=== PATIENT | female | born 1990 | race African-American/Black ===

== ENCOUNTER 2018-04-23 12:23 | Emergency (ER) | payer OTHER ==
[2018-04-23] MEDS ORDERED: ALBUTEROL 2.5 MG/3 ML NEB SOL ONE (13:29)
[2018-04-23] MEDS ORDERED: IPRATROPIUM BROM 0.5MG/2.5ML ONE (13:29)
--- NOTE | 2018-04-23 14:11 | RAD REPORT ---
EXAM DESCRIPTION: RAD - Chest Pa And Lat (2 Views) - 04/23/2018 1:53 pm CLINICAL HISTORY: Chest pain COMPARISON: October 2017 TECHNIQUE: PA and lateral views of the chest were obtained. FINDINGS: The lungs are clear. Heart size is normal and central vasculature is within normal limit s. No pleural effusion or pneumothorax seen. No acute bony finding noted. No aortic abnormality. IMPRESSION: No acute cardiopulmonary process. No significant change from comparison.
[2018-04-23 14:47] LABS: Urine Blood NEGATIVE (NEG); Urine Glucose NEGATIVE (NEG); Urine Protein NEGATIVE (NEG); Urine Specific Gravity 1.025 (1.005-1.030); Urine pH 5.5 (5.0-7.0)
--- NOTE | 2018-04-23 15:00 | EKG ---
Test Date: 2018-04-23 Test Time: 12:44:31 Industrial Engineering Director: REINALDO MEASUREMENT RESULTS: Intervals: Rate: 61 FL: 188 QRSD: 84 QT: 384 QTc: 386 [place]: P: 53 FL: 188 QRS: 49 T: 32 INTERPRETIVE STATEMENTS: Normal sinus rhythm Normal ECG Compared to ECG 11/14/2017 12:31:24 No significant changes Electronically Signed On 04-23-18 14:58:55 CDT by Aquilino De Anda
[2018-04-23] MEDS ORDERED: KETOROLAC 30 MG/ML INJ ONE (15:37)
--- NOTE | 2018-04-23 16:22 | ER ---
Nurse's Notes [facility] Name: Dede Mcgee Age: 27 yrs Sex: Female : 1990 Arrival Date: 04/23/2018 Time: 12:30 Bed 19 Private MD: Out, [facility] Diagnosis: Dyspnea;Acute bronchitis Presentation: 04/23 12:31 Presenting complaint: Patient states: midsternal chest pain x 1 day since working in heat. Transition of care: patient was not received from another setting of care. Onset of symptoms was April 22, 2018. Care prior to arrival: None. 12:31 Method Of Arrival: Ambulatory 12:31 Acuity: JOSLYN 3 hb 12:32 Risk Assessment: Do you want to hurt yourself or someone else? Patient reports no desire to harm self or others. Initial Sepsis Screen: Does the patient meet any 2 criteria? No. Patient's initial sepsis screen is negative. Does the patient have a suspected source of infection? No. Patient's initial sepsis screen is negative. 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 - Social history:: Smoking status: Patient/guardian denies using tobacco. - Ebola Screening: : No symptoms or risks identified at this time. Screenin:47 Abuse screen: Denies threats or abuse. Denies injuries from another. Nutritional ch screening: No deficits noted. Tuberculosis screening: No symptoms or risk factors identified. Fall Risk None identified. Assessment: 12:47 Reassessment: Patient appears in no apparent distress at this time. General: Appears in no apparent distress. comfortable, Behavior is calm, cooperative, appropriate for age. Pain: Complains of pain in chest Pain does not radiate. Pain began suddenly. Cardiovascular: Reports chest pain, shortness of breath, Heart tones S1 S2 present Capillary refill < 3 seconds in bilateral fingers toes Clubbing of nail beds is absent Patient's skin is warm and dry. Pulses are all present. Edema is absent. Rhythm is regular. 13:24 Reassessment: Patient appears in no apparent distress at this time. Patient and/or ch family updated on plan of care and expected duration. Pain level reassessed. Patient is alert, oriented x 3, equal unlabored respirations, skin warm/dry/pink. 13:32 Reassessment: Patient appears in no apparent distress at this time. Patient and/or ch family updated on plan of care and expected duration. Pain level reassessed. Patient is alert, oriented x 3, equal unlabored respirations, skin warm/dry/pink. 14:29 Reassessment: Patient appears in no apparent distress at this time. Patient and/or ch family updated on plan of care and expected duration. Pain level reassessed. Patient is alert, oriented x 3, equal unlabored respirations, skin warm/dry/pink. pt talking in room, no s/s of SOB. denies pain Patient states feeling better. Patient states symptoms have improved. 14:36 Reassessment: Patient appears in no apparent distress at this time. Patient and/or ch family updated on plan of care and expected duration. Pain level reassessed. Patient is alert, oriented x 3, equal unlabored respirations, skin warm/dry/pink. pt states she has pain all the time, states it gets worse with deep breathing, feels like a stabbing pain in her lungs. 16:09 Reassessment: Patient appears in no apparent distress at this time. Patient and/or ch family updated on plan of care and expected duration. Pain level reassessed. Patient is alert, oriented x 3, equal unlabored respirations, skin warm/dry/pink. Patient denies pain at this time. Patient states feeling better. Patient states symptoms have improved. 16:44 Reassessment: Patient appears in no apparent distress at this time. Patient and/or ch family updated on plan of care and expected duration. Pain level reassessed. Patient is alert, oriented x 3, equal unlabored respirations, skin warm/dry/pink. Patient denies pain at this time. Patient states feeling better. Patient states symptoms have improved. Vital Signs: 12:32 BP 137 / 102; Pulse 64; Resp 16; Temp 98.4; Pulse Ox 100% ; Weight 72.57 kg; Height 5 hb ft. 10 in. (177.80 cm); Pain 7/10; 13:32 BP 124 / 84; Pulse 65; Resp 14; Temp 97.9; Pulse Ox 99% on R/A; Pain 6/10; ch 14:36 BP 111 / 58; Pulse 72; Resp 18; Temp 98.3; Pulse Ox 99% on R/A; Pain 4/10; ch 16:44 BP 129 / 88; Pulse 70; Resp 15; Temp 98.2; Pulse Ox 99% on R/A; Pain 0/10; ch 12:32 Body Mass Index 22.96 (72.57 kg, 177.80 cm) hb ED Course: 12:30 Patient arrived in ED. sb2 12:30 Out, of Town is Private Physician. sb2 12:32 Triage completed. hb 12:33 Arm band placed on left wrist. hb 12:45 Jewell Park, RN is Primary Nurse. ch 12:46 Reza Méndez MD is Attending Physician. gs 12:47 No apparent distress. Resting quietly. ch 12:47 Patient has correct armband on for positive identification. Placed in gown. Bed in low ch position. Call light in reach. Side rails up X 1. monitoring specialist on. Pulse ox on. NIBP on. 12:47 No provider procedures requiring assistance completed. Patient maintains SpO2 ch saturation greater than 95% on room air. 12:53 EKG done, by auto technician mechanic. reviewed by Reza Méndez MD. sm3 13:36 Patient moved to radiology via wheelchair. 13:53 X-ray completed. Patient tolerated procedure well. Patient moved back from radiology. mh1 13:54 XRAY Chest Pa And Lat (2 Views) In Process Unspecified. EDMS 15:09 Initial lab(s) drawn, by id, sent to lab. Inserted saline lock: 22 gauge in left dh3 antecubital area, using aseptic technique. Blood collected. 16:44 IV discontinued, intact, bleeding controlled, No redness/swelling at site. Pressure ch dressing applied. Administered Medications: 13:24 Drug: Albuterol 2.5 mg Route: Inhalation; ch 13:24 Drug: AtroVENT Aerosol 0.5 mg Route: Inhalation; ch 15:30 Drug: TORadol 30 mg Route: IM; Site: left gluteus; ch 16:45 Follow up: Response: No adverse reaction; Marked relief of symptoms ch Outcome: 16:21 Discharge ordered by . 16:44 Discharged to home ambulatory, with family. 16:44 Condition: improved 16:44 Discharge instructions given to patient, family, Instructed on discharge instructions, follow up and referral plans. medication usage, Demonstrated understanding of instructions, follow-up care, medications, Prescriptions given X 3. 16:46 Patient left the ED. Signatures: Dispatcher [employer] EDMS Jewell Park RN RN Jackie Jaffe [facility] Tatianna Hubbard Heather, RN RN Sriram, Larissa 3 Reza Méndez MD MD Lamar Rizo 2 Germania Bravo 3
--- NOTE | 2018-04-23 16:22 | EDPHYS ---
Physician Documentation [facility] Name: Dede Mcgee Age: 27 yrs Sex: Female : 1990 Arrival Date: 04/23/2018 Time: 12:30 Bed 19 Private MD: Out, [facility] ED Physician Reza Méndez HPI: 04/23 16:07 This 27 yrs old Black Female presents to ER via Ambulatory with complaints of Chest gs Pain, Shortness Of Breath. 16:07 The patient or guardian reports chest pain that is located primarily in the anterior gs chest wall, right. The pain does not radiate. Associated signs and symptoms: Pertinent positives: shortness of breath. The chest pain is described as sharp. Duration: The patient or guardian reports multiple episodes, that are intermittent, that wax and wane, with no pattern. Modifying factors: the symptoms are aggravated by cough, deep breath. Severity of pain: At its worst the pain was moderate in the emergency department the pain is unchanged. The patient has experienced similar episodes in the past, a few times. 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 - Social history:: Smoking status: Patient/guardian denies using tobacco. - Ebola Screening: : No symptoms or risks identified at this time. ROS: 16:07 All other systems are negative. gs Exam: 16:07 Head/Face: Normocephalic, atraumatic. Eyes: Pupils equal round and reactive to light, gs extra-ocular motions intact. Lids and lashes normal. Conjunctiva and sclera are non-icteric and not injected. Cornea within normal limits. Periorbital areas with no swelling, redness, or edema. ENT: Nares patent. No nasal discharge, no septal abnormalities noted. Tympanic membranes are normal and external auditory canals are clear. Oropharynx with no redness, swelling, or masses, exudates, or evidence of obstruction, uvula midline. Mucous membranes moist. Neck: Trachea midline, no thyromegaly or masses palpated, and no cervical lymphadenopathy. Supple, full range of motion without nuchal rigidity, or vertebral point tenderness. No Meningismus. Chest/axilla: Normal chest wall appearance and motion. Nontender with no deformity. No lesions are appreciated. Cardiovascular: Regular rate and rhythm with a normal S1 and S2. No gallops, murmurs, or rubs. Normal PMI, no JVD. No pulse deficits. Respiratory: Lungs have equal breath sounds bilaterally, clear to auscultation and percussion. No rales, rhonchi or wheezes noted. No increased work of breathing, no retractions or nasal flaring. Abdomen/GI: Soft, non-tender, with normal bowel sounds. No distension or tympany. No guarding or rebound. No evidence of tenderness throughout. Back: No spinal tenderness. No costovertebral tenderness. Full range of motion. Skin: Warm, dry with normal turgor. Normal color with no rashes, no lesions, and no evidence of cellulitis. MS/ Extremity: Pulses equal, no cyanosis. Neurovascular intact. Full, normal range of motion. Neuro: Awake and alert, GCS 15, oriented to person, place, time, and situation. Cranial nerves II-XII grossly intact. Motor strength 5/5 in all extremities. Sensory grossly intact. Cerebellar exam normal. Normal gait. 16:07 Constitutional: The patient appears alert, awake. 16:07 ECG was reviewed by the Attending Physician. Vital Signs: 12:32 BP 137 / 102; Pulse 64; Resp 16; Temp 98.4; Pulse Ox 100% ; Weight 72.57 kg; Height 5 hb ft. 10 in. (177.80 cm); Pain 7/10; 13:32 BP 124 / 84; Pulse 65; Resp 14; Temp 97.9; Pulse Ox 99% on R/A; Pain 6/10; ch 14:36 BP 111 / 58; Pulse 72; Resp 18; Temp 98.3; Pulse Ox 99% on R/A; Pain 4/10; ch 16:44 BP 129 / 88; Pulse 70; Resp 15; Temp 98.2; Pulse Ox 99% on R/A; Pain 0/10; ch 12:32 Body Mass Index 22.96 (72.57 kg, 177.80 cm) hb MDM: 13:02 Patient medically screened. 16:07 Differential diagnosis: pleurisy, pneumonia, pulmonary embolus, asthma. Data reviewed: vital signs, nurses notes. 04/23 13:34 Order name: Urine Dipstick--Ancillary (enter results); Complete Time: 16:05 5 04/23 13:34 Order name: Urine --Ancillary (enter results); Complete Time: 16:05 [facility] 04/23 13:19 Order name: XRAY Chest Pa And Lat (2 Views); Complete Time: 14:15 04/23 14:36 Order name: D-Dimer; Complete Time: 16:05 04/23 13:19 Order name: EKG; Complete Time: 13:19 04/23 13:19 Order name: EKG - Nurse/Tech; Complete Time: 13:32 EC:07 Rate is 61 beats/min. Rhythm is regular. T waves are Normal. Clinical impression: Normal ECG. Interpreted by me. Administered Medications: 13:24 Drug: Albuterol 2.5 mg Route: Inhalation; 13:24 Drug: AtroVENT Aerosol 0.5 mg Route: Inhalation; 15:30 Drug: TORadol 30 mg Route: IM; Site: left gluteus; 16:45 Follow up: Response: No adverse reaction; Marked relief of symptoms Disposition: 04/23/18 16:21 Discharged to Home. Impression: Dyspnea, Acute bronchitis. - Condition is Stable. - Prescriptions for Prednisone 20 mg Oral Tablet - take 1 tablet by ORAL route once daily for 5 days; 5 tablet. Albuterol Sulfate 2.5 mg /3 mL (0.083 %) Inhalation Solution for Nebulization - inhale 1 unit by NEBULIZATION route every 8 hours As needed; 1 box. Naprosyn 500 mg Oral Tablet - take 1 tablet by ORAL route 2 times per day take with food; 20 tablet. - Work release form, Medication Reconciliation Form, Thank You Letter, Antibiotic Education, Prescription Opioid Use form. - Follow up: Private Physician; When: 2 - 3 days; Reason: Re-evaluation by your physician. Signatures: Dispatcher [employer] Jewell Jewell RN RN Janelle Roberts RN RN hb Starr, Gregory, MD MD Corrections: (The following items were deleted from the chart) 16:46 16:21 04/23/2018 16:21 Discharged to Home. Impression: Dyspnea; Acute bronchitis. ch Condition is Stable. Forms are Medication Reconciliation Form, Thank You Letter, Antibiotic Education, Prescription Opioid Use. Follow up: Private Physician; When: 2 - 3 days; Reason: Re-evaluation by your physician. gs
[2018-04-23 16:52] VITALS: O2SAT 99
[2018-04-23 16:55] VITALS: BP 129/88; TEMP 98.2
== END 2018-04-23 16:46 | disposition home or self-care (01) ==
LOC: ER 12:23
DX: J20.9 Acute bronchitis, unspecified (principal); I10 Essential (primary) hypertension; Z88.8 Allergy status to other drugs, medicaments and biological substances; Z91.013 Allergy to seafood
CPT/HCPCS: 36415; 71046; 81003; 81025; 85379; 93005; 96372; 99285

== ENCOUNTER 2018-09-09 12:35 | Emergency (ER) | payer SELFPAY ==
--- NOTE | 2018-09-09 14:20 | RAD REPORT ---
EXAM DESCRIPTION: RAD - Chest Pa And Lat (2 Views) - 09/09/2018 2:09 pm CLINICAL HISTORY: SOB Chest pain. COMPARISON: Chest Pa And Lat (2 Views) dated 04/23/2018; Chest Pa And Lat (2 Views) dated 11/14/2017; Chest Single View dated 09/09/2017; CHEST PA AND LAT 2 VIEW dated 04/02/2014 FINDINGS: The lungs are clear. The heart is normal in size. No displaced fractures. IMPRESSION: No acute or concerning finding suspected.
[2018-09-09] MEDS ORDERED: ONDANSETRON 4 MG/2 ML VIAL ONE (15:01)
[2018-09-09] MEDS ORDERED: FENTANYL CITR 100 MCG/2 ML ONE (15:01)
[2018-09-09] MEDS ORDERED: NA CHLORIDE 0.9% 1,000 ML ONE (15:01)
[2018-09-09 15:11] LABS: Absolute Lymphocytes (CBC) 2.4 K/uL (0.7-4.9); Absolute Monocytes 0.5 K/uL (0.1-1.3); Absolute Neutrophil 3.8 K/uL (1.8-8.0); Basophils % 1.1 % (0-1.3); Eosinophils % 3.1 % (0-4.4); Hematocrit 40.1 % (36.0-45.0); MCH 31.6 pg (27.0-35.0); MCV 93.7 fL (80-100); MPV 8.9 fL (7.6-11.3); Monocytes % 7.4 % (3.3-12.3); RBC Red Blood Cell Count 4.28 M/uL (3.86-4.86)
[2018-09-09 15:16] LABS: Protime INR 1.16
[2018-09-09 15:18] LABS: Urine Blood NEGATIVE (NEG); Urine Glucose NEGATIVE (NEG); Urine Protein NEGATIVE (NEG); Urine Specific Gravity 1.025 (1.005-1.030)
--- NOTE | 2018-09-09 15:29 | RAD REPORT ---
EXAM DESCRIPTION: US - Abdomen Exam Limited - 09/09/2018 3:22 pm CLINICAL HISTORY: ABD PAIN COMPARISON: No comparisons FINDINGS: The gallbladder demonstrates no gallstones. No pericholecystic fluid or gallbladder wall t hickening. The common bile duct is normal measuring 4 mm. The liver demonstrates no findings of intrahepatic biliary dilatation. IMPRESSION: Unremarkable examination.
[2018-09-09] MEDS ORDERED: METHYLPREDNISOLONE 125 MG INJ ONE (15:30)
[2018-09-09] MEDS ORDERED: FAMOTIDINE 20 MG/2 ML VIAL IV ONE (15:30)
[2018-09-09 15:55] LABS: ALT/SGPT 20 U/L (12-78); AST/SGOT 11 U/L (15-37); Albumin 3.5 g/dL (3.4-5.0); Alkaline Phosphatase 44 U/L (45-117); BUN Blood Urea Nitrogen 13 mg/dL (7-18); Bicarbonate 27 mmol/L (21-32); Bilirubin Direct < 0.1 mg/dL (0-0.2); Bilirubin Total 0.3 mg/dL (0.2-1.0); Glucose Level 79 mg/dL (74-106); Lipase 266 U/L (73-393); Magnesium 2.3 mg/dL (1.8-2.4); NT PRO-BNP 80 pg/mL (<125); Sodium Level 138 mmol/L (136-145); Troponin (Emerg Dept Use Only) < 0.02 ng/mL (0.0-0.045)
[2018-09-09] MEDS ORDERED: DIPHENHYDRAMINE 25 MG TAB/CAP ONE (16:08)
--- NOTE | 2018-09-09 16:31 | RAD REPORT ---
EXAM DESCRIPTION: CT - Chest For Pe Angio - 09/09/2018 4:09 pm CLINICAL HISTORY: Right-sided chest pain, shortness of breath with deep inspiration COMPARISON: Chest films same date TECHNIQUE: Dynamically enhanced 3 mm thick images of the chest were obtained during administration o f approximately 150mL Isovue 370 IV contrast. Coronal and oblique MIP reconstruction images were gene rated and reviewed. Exam utilizes a protocol to evaluate the pulmonary arterial tree. All CT scans are performed using dose optimization technique as appropriate and may include automated exposure control or mA/KV adjustment according to patient size. FINDINGS: No pulmonary emboli are identified. The aorta as imaged shows no acute or suspicious finding. No pericardial thickening or effusion. No infiltrate or mass in the lung parenchyma. No pleural effusion or pleural thickening. No mediastinal or hilar suspicious masses. No chest wall masses or abnormal axillary lymphadenopathy. IMPRESSION: No pulmonary emboli identified. No other significant or suspicious findings.
[2018-09-09] MEDS ORDERED: CEFTRIAXONE/SWI 1gm 1 GM/10 ML SYR ONE (16:55)
--- NOTE | 2018-09-09 16:55 | EDPHYS ---
Physician Documentation [facility] Name: Dede Mcgee Age: 28 yrs Sex: Female : 1990 Arrival Date: 09/09/2018 Time: 12:38 Bed 30 Private MD: Nina Terrell ED Physician Balta Hummel HPI: 09/09 14:53 This 28 yrs old Black Female presents to ER via Ambulatory with complaints of Shortness shelby Of Breath, LUNG PAIN. 14:53 The patient has shortness of breath at rest, with light activity. Onset: The shelby symptoms/episode began/occurred 3 day(s) ago. Duration: The symptoms are intermittent, with episodes lasting seconds at a time. The patient's shortness of breath is aggravated by coughing, walking. Associated signs and symptoms: The patient has no apparent associated signs or symptoms. Severity of symptoms: At their worst the symptoms were mild in the emergency department the symptoms are unchanged. The patient has not experienced similar symptoms in the past. Historical: - Allergies: 12:41 montelukast; sv 12:41 SHELLFISH; sv - PMHx: 12:41 Asthma; Hypertension; Ovarian cyst; sv - PSHx: 12:41 ovarian cyst removal; sv - Immunization history:: Flu vaccine is not up to date. - Social history:: Smoking status: Patient/guardian denies using tobacco. - Ebola Screening: : No symptoms or risks identified at this time. ROS: 14:55 Constitutional: Negative for fever, chills, and weight loss, Eyes: Negative for injury, shelby pain, redness, and discharge, ENT: Negative for injury, pain, and discharge, Neck: Negative for injury, pain, and swelling, Cardiovascular: Negative for chest pain, palpitations, and edema, Respiratory: Negative for shortness of breath, cough, wheezing, and pleuritic chest pain, Back: Negative for injury and pain, : Negative for injury, bleeding, discharge, and swelling, MS/Extremity: Negative for injury and deformity, Skin: Negative for injury, rash, and discoloration, Neuro: Negative for headache, weakness, numbness, tingling, and seizure, Psych: Negative for depression, anxiety, suicide ideation, homicidal ideation, and hallucinations, Allergy/Immunology: Negative for hives, rash, and allergies, Endocrine: Negative for neck swelling, polydipsia, polyuria, polyphagia, and marked weight changes, Hematologic/Lymphatic: Negative for swollen nodes, abnormal bleeding, and unusual bruising. 14:55 Abdomen/GI: Positive for abdominal pain, of the epigastric area and right upper quadrant. Exam: 14:55 Constitutional: This is a well developed, well nourished patient who is awake, alert, shelby and in no acute distress. Head/Face: Normocephalic, atraumatic. Eyes: Pupils equal round and reactive to light, extra-ocular motions intact. Lids and lashes normal. Conjunctiva and sclera are non-icteric and not injected. Cornea within normal limits. Periorbital areas with no swelling, redness, or edema. ENT: Nares patent. No nasal discharge, no septal abnormalities noted. Tympanic membranes are normal and external auditory canals are clear. Oropharynx with no redness, swelling, or masses, exudates, or evidence of obstruction, uvula midline. Mucous membranes moist. Neck: Trachea midline, no thyromegaly or masses palpated, and no cervical lymphadenopathy. Supple, full range of motion without nuchal rigidity, or vertebral point tenderness. No Meningismus. Chest/axilla: Normal chest wall appearance and motion. Nontender with no deformity. No lesions are appreciated. Cardiovascular: Regular rate and rhythm with a normal S1 and S2. No gallops, murmurs, or rubs. Normal PMI, no JVD. No pulse deficits. Respiratory: Lungs have equal breath sounds bilaterally, clear to auscultation and percussion. No rales, rhonchi or wheezes noted. No increased work of breathing, no retractions or nasal flaring. Back: No spinal tenderness. No costovertebral tenderness. Full range of motion. Skin: Warm, dry with normal turgor. Normal color with no rashes, no lesions, and no evidence of cellulitis. MS/ Extremity: Pulses equal, no cyanosis. Neurovascular intact. Full, normal range of motion. Neuro: Awake and alert, GCS 15, oriented to person, place, time, and situation. Cranial nerves II-XII grossly intact. Motor strength 5/5 in all extremities. Sensory grossly intact. Cerebellar exam normal. Normal gait. Psych: Awake, alert, with orientation to person, place and time. Behavior, mood, and affect are within normal limits. 14:55 Abdomen/GI: Inspection: abdomen appears normal, Bowel sounds: normal, Palpation: mild abdominal tenderness, in the right upper quadrant, Liver: no appreciated palpable abnormalities, Hernia: not appreciated. Vital Signs: 12:42 BP 135 / 92; Pulse 64; Resp 18; Temp 98.3; Pulse Ox 100% ; Weight 73.48 kg; Height 5 sv ft. 10 in. (177.80 cm); Pain 7/10; 13:04 BP 127 / 94; Pulse 62; Resp 18; Pulse Ox 99% ; kr2 14:08 BP 129 / 99; Pulse 58; Resp 19; Pulse Ox 100% ; kr2 15:46 BP 130 / 99 RA (auto/reg); Pulse 69; Resp 19; Pulse Ox 100% on R/A; jp3 16:30 BP 132 / 88; Pulse 64; Resp 16; Pulse Ox 99% on R/A; kr2 17:22 BP 128 / 90; Pulse 60; Resp 17; Pulse Ox 100% ; kr2 12:42 Body Mass Index 23.24 (73.48 kg, 177.80 cm) sv MDM: 12:43 Patient medically screened. [facility] 14:57 Data reviewed: vital signs, nurses notes, lab test result(s), EKG, radiologic studies, [facility] CT scan, plain films, ultrasound. 09/09 13:35 Order name: Flu; Complete Time: 14:30 kr2 09/09 14:03 Order name: Urine Dipstick--Ancillary (enter results); Complete Time: 15:32 hb 09/09 14:03 Order name: Urine --Ancillary (enter results); Complete Time: 15:32 hb 09/09 14:03 Order name: Urine Culture 09/09 14:52 Order name: Basic Metabolic Panel; Complete Time: 16:15 [facility] 09/09 14:52 Order name: CBC with Diff; Complete Time: 15:32 [facility] 09/09 13:35 Order name: Chest Pa And Lat (2 Views) XRAY; Complete Time: 14:30 kr2 09/09 14:52 Order name: LFT's; Complete Time: 16:15 [facility] 09/09 14:52 Order name: Magnesium; Complete Time: 16:15 [facility] 09/09 14:52 Order name: NT PRO-BNP; Complete Time: 16:15 [facility] 09/09 14:52 Order name: PT-INR; Complete Time: 15:32 [facility] 09/09 14:52 Order name: Troponin (emerg Dept Use Only); Complete Time: 16:15 [facility] 09/09 14:52 Order name: Lipase; Complete Time: 16:15 [facility] 09/09 14:52 Order name: US Abdomen Limited; Complete Time: 15:32 [facility] 09/09 14:52 Order name: EKG; Complete Time: 14:53 [facility] 09/09 14:52 Order name: Cardiac monitoring; Complete Time: 15:02 [facility] 09/09 14:52 Order name: EKG - Nurse/Tech; Complete Time: 15:02 [facility] 09/09 14:52 Order name: IV Saline Lock; Complete Time: 15:02 [facility] 09/09 14:52 Order name: Labs collected and sent; Complete Time: 15:02 [facility] 09/09 14:52 Order name: O2 Per Protocol; Complete Time: 15:02 [facility] 09/09 14:52 Order name: CT Chest For PE Angio; Complete Time: 16:50 [facility] 09/09 14:52 Order name: O2 Sat Monitoring; Complete Time: 15:03 [facility] Administered Medications: 15:03 Drug: fentaNYL (PF) 25 mcg Route: IVP; Site: left antecubital; kr2 15:32 Follow up: Response: No adverse reaction; Pain is decreased kr2 15:03 Drug: Zofran 4 mg Route: IVP; Site: left antecubital; kr2 15:32 Follow up: Response: No adverse reaction kr2 15:31 Drug: NS 0.9% 1000 ml Route: IV; Rate: 1 bolus; Site: left antecubital; kr2 17:23 Follow up: Response: No adverse reaction; IV Status: Completed infusion kr2 15:31 Drug: SOLU-Medrol 125 mg Route: IVP; Site: left antecubital; kr2 16:44 Follow up: Response: No adverse reaction kr2 15:32 Drug: Pepcid 20 mg Route: IVP; Site: left antecubital; kr2 16:44 Follow up: Response: No adverse reaction kr2 15:58 Not Given (medication unavailable): Benadryl 50 mg IM once kr2 15:59 CANCELLED (Duplicate Order): Benadryl 25 mg IVP once kr2 16:07 Drug: Benadryl 25 mg Route: PO; kr2 16:44 Follow up: Response: No adverse reaction kr2 17:08 Drug: Rocephin - (cefTRIAXone) 1 grams Route: IVPB; Infused Over: 30 mins; Site: left kr2 antecubital; 17:23 Follow up: Response: No adverse reaction; IV Status: Completed infusion kr2 Disposition: 09/09/18 16:55 Discharged to Home. Impression: Pleurisy, Urinary tract infection, site not specified, Abdominal tenderness. - Condition is Stable. - Discharge Instructions: Abdominal Pain, Adult, Chest Wall Pain, Pleurisy, Urinary Tract Infection, Adult, Urinary Tract Infection, Adult, [id number], Abdominal Pain, Adult, [id number]. - Prescriptions for Levaquin 500 mg Oral Tablet - take 1 tablet by ORAL route once daily for 7 days; 7 tablet. Pepcid 20 mg Oral Tablet - take 1 tablet by ORAL route every 12 hours for 10 days; 20 tablet. Motrin IB 200 mg Oral Tablet - take 2 tablet by ORAL route every 6 hours As needed as needed with food; 30 tablet. - Medication Reconciliation Form, Thank You Letter, Antibiotic Education, Prescription Opioid Use, Family Work Release form. - Follow up: Nina Terrell; When: 2 - 3 days; Reason: Recheck today's complaints, Continuance of care, Re-evaluation by your physician. - Problem is new. - Symptoms have improved. Signatures: Dispatcher [employer] Catia Wolf RN RN sv Anderson, Corey, MD MD cha Reaves, Karey, RN RN kr2 Corrections: (The following items were deleted from the chart) 15:59 15:58 Benadryl 25 mg IVP once ordered. kr2 kr2 17:24 16:55 09/09/2018 16:55 Discharged to Home. Impression: Pleurisy; Urinary tract kr2 infection, site not specified; Abdominal tenderness. Condition is Stable. Discharge Instructions: Abdominal Pain, Adult, Chest Wall Pain, Pleurisy, Urinary Tract Infection, Adult, Urinary Tract Infection, Adult, [id number], Abdominal Pain, Adult, [id number]. Prescriptions for Levaquin 500 mg Oral Tablet - take 1 tablet by ORAL route once daily for 7 days; 7 tablet, Pepcid 20 mg Oral Tablet - take 1 tablet by ORAL route every 12 hours for 10 days; 20 tablet, Motrin IB 200 mg Oral Tablet - take 2 tablet by ORAL route every 6 hours As needed as needed with food; 30 tablet. and Forms are Medication Reconciliation Form, Thank You Letter, Antibiotic Education, Prescription Opioid Use. Follow up: Nina Terrell; When: 2 - 3 days; Reason: Recheck today's complaints, Continuance of care, Re-evaluation by your physician. Problem is new. Symptoms have improved. shelby
--- NOTE | 2018-09-09 16:55 | ER ---
Nurse's Notes [facility] Name: Dede Mcgee Age: 28 yrs Sex: Female : 1990 Arrival Date: 09/09/2018 Time: 12:38 Bed 30 Private MD: Nina Terrell Diagnosis: Pleurisy;Urinary tract infection, site not specified;Abdominal tenderness Presentation: 09/09 12:41 Presenting complaint: Patient states: "right lung pain" c/o SOB with deep breathing, sv cough, generalized weakness. Transition of care: patient was not received from another setting of care. Onset of symptoms was September 07, 2018. Care prior to arrival: None. 12:41 Method Of Arrival: Ambulatory sv 12:41 Acuity: JOSLYN 3 sv 12:56 Risk Assessment: Do you want to hurt yourself or someone else? Patient reports no kr2 desire to harm self or others. Initial Sepsis Screen: Does the patient meet any 2 criteria? No. Patient's initial sepsis screen is negative. Does the patient have a suspected source of infection? No. Patient's initial sepsis screen is negative. Triage Assessment: 12:56 General: Appears in no apparent distress. comfortable. Respiratory: Onset: The kr2 symptoms/episode began/occurred 3 days ago, the patient has mild shortness of breath. Respiratory: Airway is patent Respiratory effort is even, unlabored, Respiratory pattern is regular, symmetrical. Historical: - Allergies: 12:41 montelukast; sv 12:41 SHELLFISH; sv - PMHx: 12:41 Asthma; Hypertension; Ovarian cyst; sv - PSHx: 12:41 ovarian cyst removal; sv - Immunization history:: Flu vaccine is not up to date. - Social history:: Smoking status: Patient/guardian denies using tobacco. - Ebola Screening: : No symptoms or risks identified at this time. Screenin:56 Abuse screen: Denies threats or abuse. Denies injuries from another. Nutritional kr2 screening: No deficits noted. Tuberculosis screening: No symptoms or risk factors identified. Fall Risk None identified. Assessment: 12:53 General: Appears in no apparent distress. comfortable, well groomed, well developed, kr2 well nourished, Behavior is calm, cooperative, appropriate for age. Pain: Complains of pain in Lungs Pain does not radiate. Pain currently is 7 out of 10 on a pain scale. Quality of pain is described as sharp, Is intermittent, Alleviated by rest, Aggravated by deep breathing, coughing. Neuro: Level of Consciousness is awake, alert, obeys commands, Oriented to person, place, time, situation, Appropriate for age. Cardiovascular: Rhythm is regular. Respiratory: Airway is patent Respiratory effort is even, unlabored, Respiratory pattern is regular, symmetrical. Respiratory: Reports cough that is non-productive. GI: Abdomen is flat, non-distended. EENT: Reports nasal congestion. Derm: Skin is intact, is healthy with good turgor, Skin is pink, warm \\T\\ dry. Musculoskeletal: Circulation, motion, and sensation intact. 12:53 Respiratory: Breath sounds are clear bilaterally. kr2 14:06 Reassessment: Patient appears in no apparent distress at this time. Patient and/or kr2 family updated on plan of care and expected duration. Pain level reassessed. Patient is alert, oriented x 3, equal unlabored respirations, skin warm/dry/pink. 15:00 Reassessment: Patient appears in no apparent distress at this time. Patient and/or kr2 family updated on plan of care and expected duration. Pain level reassessed. Patient is alert, oriented x 3, equal unlabored respirations, skin warm/dry/pink. Patient states feeling better. 16:00 Reassessment: Patient appears in no apparent distress at this time. Patient and/or kr2 family updated on plan of care and expected duration. Pain level reassessed. Patient is alert, oriented x 3, equal unlabored respirations, skin warm/dry/pink. Patient denies pain at this time. Patient states symptoms have improved. 17:21 Reassessment: Patient appears in no apparent distress at this time. Patient and/or kr2 family updated on plan of care and expected duration. Pain level reassessed. Patient is alert, oriented x 3, equal unlabored respirations, skin warm/dry/pink. Patient denies pain at this time. Patient states feeling better. Vital Signs: 12:42 BP 135 / 92; Pulse 64; Resp 18; Temp 98.3; Pulse Ox 100% ; Weight 73.48 kg; Height 5 sv ft. 10 in. (177.80 cm); Pain 7/10; 13:04 BP 127 / 94; Pulse 62; Resp 18; Pulse Ox 99% ; kr2 14:08 BP 129 / 99; Pulse 58; Resp 19; Pulse Ox 100% ; kr2 15:46 BP 130 / 99 RA (auto/reg); Pulse 69; Resp 19; Pulse Ox 100% on R/A; jp3 16:30 BP 132 / 88; Pulse 64; Resp 16; Pulse Ox 99% on R/A; kr2 17:22 BP 128 / 90; Pulse 60; Resp 17; Pulse Ox 100% ; kr2 12:42 Body Mass Index 23.24 (73.48 kg, 177.80 cm) sv ED Course: 12:38 Patient arrived in ED. sb2 12:39 Nina Terrell MD is Private Physician. sb2 12:41 Triage completed. sv 12:42 Arm band placed on. sv 12:43 Balta Hummel MD is Attending Physician. shelby 12:50 Sharifa Jordan, HEIDI is Primary Nurse. kr2 12:57 Patient has correct armband on for positive identification. Bed in low position. Call kr2 light in reach. Side rails up X 1. Pulse ox on. NIBP on. Door closed. Head of bed elevated. 13:40 Flu and/or RSV swab sent to lab. jp3 13:58 Patient moved to radiology via wheelchair. jb2 13:58 Flu Sent. jp3 14:10 Chest Pa And Lat (2 Views) XRAY In Process Unspecified. EDMS 15:00 Inserted saline lock: 20 gauge in left antecubital area, using aseptic technique. Blood kr2 collected. 15:11 EKG done, by emergency medical technician. reviewed by Balta Hummel MD. sm3 15:23 US Abdomen Limited In Process Unspecified. EDMS 16:[address] nj 16:10 CT Chest For PE Angio In Process Unspecified. EDMS 16:55 Nina Terrell MD is Referral Physician. shelby 17:23 No provider procedures requiring assistance completed. IV discontinued, intact, kr2 bleeding controlled, No redness/swelling at site. Pressure dressing applied. Administered Medications: 15:03 Drug: fentaNYL (PF) 25 mcg Route: IVP; Site: left antecubital; kr2 15:32 Follow up: Response: No adverse reaction; Pain is decreased kr2 15:03 Drug: Zofran 4 mg Route: IVP; Site: left antecubital; kr2 15:32 Follow up: Response: No adverse reaction kr2 15:31 Drug: NS 0.9% 1000 ml Route: IV; Rate: 1 bolus; Site: left antecubital; kr2 17:23 Follow up: Response: No adverse reaction; IV Status: Completed infusion kr2 15:31 Drug: SOLU-Medrol 125 mg Route: IVP; Site: left antecubital; kr2 16:44 Follow up: Response: No adverse reaction kr2 15:32 Drug: Pepcid 20 mg Route: IVP; Site: left antecubital; kr2 16:44 Follow up: Response: No adverse reaction kr2 15:58 Not Given (medication unavailable): Benadryl 50 mg IM once kr2 15:59 CANCELLED (Duplicate Order): Benadryl 25 mg IVP once kr2 16:07 Drug: Benadryl 25 mg Route: PO; kr2 16:44 Follow up: Response: No adverse reaction kr2 17:08 Drug: Rocephin - (cefTRIAXone) 1 grams Route: IVPB; Infused Over: 30 mins; Site: left kr2 antecubital; 17:23 Follow up: Response: No adverse reaction; IV Status: Completed infusion kr2 Outcome: 16:55 Discharge ordered by MD. ryan 17:23 Discharged to home ambulatory, with family. kr2 17:23 Condition: good 17:23 Discharge instructions given to patient, family, Instructed on discharge instructions, follow up and referral plans. medication usage, Demonstrated understanding of instructions, follow-up care, medications, Prescriptions given X 3. 17:24 Patient left the ED. kr2 Signatures: Dispatcher [employer] EDCatia Louis RN RN sv Anderson, Corey, MD MD cha Buechter, Jesse jb2 Jordan, Nathan nj Reaves, Karey, RN RN kr2 Lamar Rizo2 Germania Bravo3 Deep Chi jp3 Corrections: (The following items were deleted from the chart) 12:42 12:41 Presenting complaint: Patient states: "right lung pain" c/o SOB and generalized sv weakness sv
--- NOTE | 2018-09-09 19:38 | EKG ---
Test Date: 2018-09-09 Test Time: 15:07:43 Processing Assistant: DANNI MEASUREMENT RESULTS: Intervals: Rate: 65 HI: 204 QRSD: 90 QT: 382 QTc: 397 [place]: P: 55 HI: 204 QRS: 50 T: 38 INTERPRETIVE STATEMENTS: Normal sinus rhythm Normal ECG Compared to ECG 04/23/2018 12:44:31 No significant changes Electronically Signed On 09-09-18 19:36:58 CDT by Rangel Gore
[2018-09-10 14:52] VITALS: BP 128/90; TEMP 98.3; O2SAT 100
== END 2018-09-09 17:24 | disposition home or self-care (01) ==
LOC: ER 12:35
DX: R09.1 Pleurisy (principal); N39.0 Urinary tract infection, site not specified; R10.819 Abdominal tenderness, unspecified site; I10 Essential (primary) hypertension; Z88.8 Allergy status to other drugs, medicaments and biological substances; Z91.013 Allergy to seafood
CPT/HCPCS: 36415; 71046; 71275; 76705; 80048; 80076; 81003; 81025; 83690; 83735; 83880; 84484; 85025; 85610; 87086; 87088; 87804; 93005; 96361; 96374; 96375; 99285; J0696; J2405; J2930; J3010; J7030; Q9967

== ENCOUNTER 2018-12-15 22:44 | Emergency (ER) | payer OTHER ==
[2018-12-15] MEDS ORDERED: KETOROLAC 30 MG/ML INJ ONE (23:59)
[2018-12-15] MEDS ORDERED: ONDANSETRON 4 MG/2 ML VIAL ONE (23:59)
[2018-12-15] MEDS ORDERED: FENTANYL CITR 100 MCG/2 ML ONE (23:59)
[2018-12-16 00:21] LABS: Protime INR 1.1
[2018-12-16 00:23] LABS: Absolute Lymphocytes (CBC) 2.5 K/uL (0.7-4.9); Absolute Monocytes 0.6 K/uL (0.1-1.3); Basophils % 0.8 % (0-1.3); Eosinophils % 4.1 % (0-4.4); Hematocrit 42.5 % (36.0-45.0); Lymphocytes % 39.4 % (15.3-44.8); MPV 9.7 fL (7.6-11.3); Monocytes % 9.5 % (3.3-12.3); RBC Red Blood Cell Count 4.51 M/uL (3.86-4.86)
[2018-12-16 00:25] LABS: Urine Blood NEGATIVE (NEG); Urine Glucose NEGATIVE (NEG); Urine Protein NEGATIVE (NEG); Urine pH 8.5 (5.0-7.0)
[2018-12-16 01:13] LABS: ALT/SGPT 22 U/L (12-78); AST/SGOT 17 U/L (15-37); Albumin 3.6 g/dL (3.4-5.0); Alkaline Phosphatase 44 U/L (45-117); BUN Blood Urea Nitrogen 13 mg/dL (7-18); Bicarbonate 25 mmol/L (21-32); Bilirubin Direct 0.1 mg/dL (0-0.2); Bilirubin Total 0.3 mg/dL (0.2-1.0); Glucose Level 88 mg/dL (74-106); NT PRO-BNP 47 pg/mL (<125); Potassium 3.7 mmol/L (3.5-5.1); Protein, Total 6.8 g/dL (6.4-8.2); Sodium Level 140 mmol/L (136-145); Troponin (Emerg Dept Use Only) < 0.02 ng/mL (0.0-0.045)
--- NOTE | 2018-12-16 01:32 | ER ---
Nurse's Notes [facility] Name: Dede Mcgee Age: 28 yrs Sex: Female : 1990 Arrival Date: 12/15/2018 Time: 22:48 Bed 5 Private MD: Diagnosis: Muscle spasm of back;Other chest pain-chest wall pain Presentation: 12/15 22:50 Presenting complaint: EMS states: Pt complaining of chest pain with inspiration that ea radiates to her back. Pt reported pain started about an hour ago. Pt also states there is a possibility she may be . Transition of care: patient was not received from another setting of care. Onset of symptoms was December 15, 2018. Risk Assessment: Do you want to hurt yourself or someone else? Patient reports no desire to harm self or others. Initial Sepsis Screen: Does the patient meet any 2 criteria? No. Patient's initial sepsis screen is negative. Does the patient have a suspected source of infection? No. Patient's initial sepsis screen is negative. Care prior to arrival: None. 22:50 Method Of Arrival: EMS: [facility] ea 22:50 Acuity: JOSLYN 3 ea Triage Assessment: 22:58 General: Appears in no apparent distress. Behavior is calm, cooperative, appropriate ea for age. Pain: Complains of pain in chest Pain radiates to back Pain currently is 8 out of 10 on a pain scale. Quality of pain is described as aching, Pain began 1 hour ago. Neuro: Level of Consciousness is awake, alert, obeys commands, Oriented to person, place, time, situation. Cardiovascular: Patient's skin is warm and dry. Respiratory: Airway is patent Respiratory effort is even, unlabored, Respiratory pattern is regular, symmetrical, Breath sounds are diminished Parent/caregiver reports the patient having shortness of breath Chest pain with respiration and history of pleurisy. GI: Abdomen is non-distended. Derm: Skin is dry, Skin is normal, Skin temperature is warm. Musculoskeletal: Circulation, motion, and sensation intact. Historical: - Allergies: 22:58 montelukast; ea 22:58 SHELLFISH; ea - Home Meds: 22:58 Xopenex Inhl [Active]; Vitamin D Oral daily [Active]; Flagyl Oral for Bacterial ea Vaginosis [Active]; Albuterol Inhl [Active]; - PMHx: 22:58 Ovarian cyst; Hypertension; Asthma; ea - PSHx: 22:58 ovarian cyst removal; ea - Immunization history:: Adult Immunizations up to date. - Social history:: Smoking status: Patient/guardian denies using tobacco. - Ebola Screening: : No symptoms or risks identified at this time. Screenin:55 Abuse screen: Denies threats or abuse. Nutritional screening: No deficits noted. ea Tuberculosis screening: No symptoms or risk factors identified. Fall Risk None identified. Assessment: 12/16 00:07 Reassessment: Patient and/or family updated on plan of care and expected duration. Pain ea level reassessed. Patient is alert, oriented x 3, equal unlabored respirations, skin warm/dry/pink. 01:02 Reassessment: Patient and/or family updated on plan of care and expected duration. Pain ea level reassessed. Patient is alert, oriented x 3, equal unlabored respirations, skin warm/dry/pink. Patient states feeling better. Patient states symptoms have improved. 01:44 Reassessment: Patient and/or family updated on plan of care and expected duration. Pain ea level reassessed. Patient is alert, oriented x 3, equal unlabored respirations, skin warm/dry/pink. Discharge instructions given to patient, verbalized the understanding of isntructions Patient states feeling better. Patient states symptoms have improved. Vital Signs: 12/15 22:55 BP 142 / 102; Pulse 77; Resp 16; Temp 98.6; Pulse Ox 100% on R/A; Weight 76.66 kg; ea Height 5 ft. 10 in. (177.80 cm); Pain 10/10; 23:00 BP 131 / 118; Pulse 71; Resp 17; Pulse Ox 99% on R/A; ea 12/16 00:10 BP 127 / 85; Pulse 78; Resp 17; Pulse Ox 98% on R/A; ea 01:16 BP 129 / 94; Pulse 71; Resp 18; Pulse Ox 99% ; ea 12/15 22:55 Body Mass Index 24.25 (76.66 kg, 177.80 cm) ea ED Course: 12/15 22:48 Patient arrived in ED. tl2 22:50 Debi Rangel RN is Primary Nurse. ea 22:53 Triage completed. ea 22:54 Patient has correct armband on for positive identification. Placed in gown. Bed in low ea position. Call light in reach. Side rails up X 1. 22:54 Patient placed in an exam room, on a stretcher, on air defense control officer, on pulse oximetry. ea 22:55 Lai Keith PA is PHCP. jr8 22:55 Luis Gore MD is Attending Physician. jr8 23:03 X-ray completed. Portable x-ray completed in exam room. Patient tolerated procedure kw well. 23:28 Inserted saline lock: 20 gauge in right antecubital area, using aseptic technique. mw2 Blood collected. IV discontinued, bleeding controlled, No redness/swelling at site. Pressure dressing applied. 23:31 Inserted saline lock: 20 gauge in left antecubital area, using aseptic technique. Blood mw2 collected. 23:38 Basic Metabolic Panel Sent. mw2 23:38 CBC with Diff Sent. mw2 23:38 LFT's Sent. mw2 23:38 Magnesium Sent. mw2 23:38 NT PRO-BNP Sent. mw2 23:38 PT-INR Sent. mw2 23:38 Troponin (emerg Dept Use Only) Sent. mw2 12/16 00:26 Urine --Ancillary (enter results) Sent. ea 00:26 Urine Dipstick--Ancillary (enter results) Sent. ea 00:26 XRAY Chest (1 view) Sent. ea 01:45 No provider procedures requiring assistance completed. ea 01:46 IV discontinued, intact, bleeding controlled, No redness/swelling at site. Pressure ea dressing applied. Administered Medications: 00:00 Drug: Zofran 4 mg Route: IVP; Site: left antecubital; ea 01:01 Follow up: Response: No adverse reaction; Nausea is decreased ea 00:03 Drug: fentaNYL (PF) 50 mcg Route: IVP; Site: left antecubital; ea 01:02 Follow up: Response: No adverse reaction; Pain is decreased ea 00:07 Drug: TORadol 30 mg Route: IVP; Site: left antecubital; ea 01:02 Follow up: Response: No adverse reaction; Pain is decreased ea Outcome: :31 Discharge ordered by . jrCaleb 01:45 Condition: improved ea 01:45 Discharge instructions given to patient, Instructed on discharge instructions, follow up and referral plans. medication usage, Demonstrated understanding of instructions, follow-up care, medications, Prescriptions given X 3. 01:46 Discharged to home ambulatory, with significant other. ea 01:47 Patient left the ED. ea Signatures: Stephanie Rodgers Josh, PA PA jrMakenzie Osuna RN RN tl2 Debi Rangel RN RN darrick Messer, Abbie mw2
--- NOTE | 2018-12-16 01:33 | EDPHYS ---
Physician Documentation [facility] Name: Dede Mcgee Age: 28 yrs Sex: Female : 1990 Arrival Date: 12/15/2018 Time: 22:48 Bed 5 Private MD: ED Physician Luis Gore HPI: 12/16 01:01 This 28 yrs old Black Female presents to ER via EMS with complaints of back pain and jr8 right sided chest pain. 01:01 Associated signs and symptoms: The patient has no apparent associated signs or jr8 symptoms. The chest pain is described as sharp, stabbing. Modifying factors: The symptoms are alleviated by remaining still, the symptoms are aggravated by breathing, movement, twisting torso. Severity of pain: At its worst the pain was moderate in the emergency department the pain is unchanged. The patient has not experienced similar symptoms in the past. The patient has not recently seen a physician. Patient stated that she feels right sided back pain going around to right chest. Worse with breathing, movement of chest, torso, or right arm. Denies trauma . Historical: - Allergies: 12/15 22:58 montelukast; ea 22:58 SHELLFISH; ea - Home Meds: 22:58 Xopenex Inhl [Active]; Vitamin D Oral daily [Active]; Flagyl Oral for Bacterial ea Vaginosis [Active]; Albuterol Inhl [Active]; - PMHx: 22:58 Ovarian cyst; Hypertension; Asthma; ea - PSHx: 22:58 ovarian cyst removal; ea - Immunization history:: Adult Immunizations up to date. - Social history:: Smoking status: Patient/guardian denies using tobacco. - Ebola Screening: : No symptoms or risks identified at this time. ROS: 12/16 01:01 Eyes: Negative for injury, pain, redness, and discharge, ENT: Negative for injury, jr8 pain, and discharge, Neck: Negative for injury, pain, and swelling, Respiratory: Negative for shortness of breath, cough, wheezing, and pleuritic chest pain, Abdomen/GI: Negative for abdominal pain, nausea, vomiting, diarrhea, and constipation, MS/Extremity: Negative for injury and deformity, Skin: Negative for injury, rash, and discoloration, Neuro: Negative for headache, weakness, numbness, tingling, and seizure. Cardiovascular: Positive for chest pain, with movement, Negative for edema, orthopnea, palpitations, paroxysmal nocturnal dyspnea. Back: Positive for pain at rest, pain with movement, of the right scapular area and right subscapular area. Exam: : Eyes: Pupils equal round and reactive to light, extra-ocular motions intact. Lids and jr8 lashes normal. Conjunctiva and sclera are non-icteric and not injected. Cornea within normal limits. Periorbital areas with no swelling, redness, or edema. ENT: Nares patent. No nasal discharge, no septal abnormalities noted. Tympanic membranes are normal and external auditory canals are clear. Oropharynx with no redness, swelling, or masses, exudates, or evidence of obstruction, uvula midline. Mucous membranes moist. Neck: Trachea midline, no thyromegaly or masses palpated, and no cervical lymphadenopathy. Supple, full range of motion without nuchal rigidity, or vertebral point tenderness. No Meningismus. Cardiovascular: Regular rate and rhythm with a normal S1 and S2. No gallops, murmurs, or rubs. Normal PMI, no JVD. No pulse deficits. Respiratory: Lungs have equal breath sounds bilaterally, clear to auscultation and percussion. No rales, rhonchi or wheezes noted. No increased work of breathing, no retractions or nasal flaring. Abdomen/GI: Soft, non-tender, with normal bowel sounds. No distension or tympany. No guarding or rebound. No evidence of tenderness throughout. Skin: Warm, dry with normal turgor. Normal color with no rashes, no lesions, and no evidence of cellulitis. MS/ Extremity: Pulses equal, no cyanosis. Neurovascular intact. Full, normal range of motion. Neuro: Awake and alert, GCS 15, oriented to person, place, time, and situation. Cranial nerves II-XII grossly intact. Motor strength 5/5 in all extremities. Sensory grossly intact. Cerebellar exam normal. Normal gait. : Chest/axilla: Inspection: normal, Palpation: tenderness, that is moderate, of the right lateral posterior chest and right lateral anterior chest, that totally reproduces the patient's complaints, Axilla: are normal, no abscess, no cellulitis, no mass, no palpable nodes, no rash, Lymph nodes: lymphadenopathy is not appreciated, Pain with movement of right arm that reproduces exact symptoms . 01:01 Back: pain, that is moderate, of the right scapular area, ROM is painful, normal spinal alignment noted. Vital Signs: 12/15 22:55 BP 142 / 102; Pulse 77; Resp 16; Temp 98.6; Pulse Ox 100% on R/A; Weight 76.66 kg; ea Height 5 ft. 10 in. (177.80 cm); Pain 10/10; 23:00 BP 131 / 118; Pulse 71; Resp 17; Pulse Ox 99% on R/A; ea 12/16 00:10 BP 127 / 85; Pulse 78; Resp 17; Pulse Ox 98% on R/A; ea 01:16 BP 129 / 94; Pulse 71; Resp 18; Pulse Ox 99% ; ea 12/15 22:55 Body Mass Index 24.25 (76.66 kg, 177.80 cm) ea MDM: 12/15 22:55 Patient medically screened. [facility] 12/16 01:29 Data reviewed: vital signs, nurses notes, lab test result(s), EKG, radiologic studies, [facility] plain films, and as a result, I will discharge patient. Data interpreted: Pulse oximetry: on room air is 99 %. Interpretation: normal. Counseling: I had a detailed discussion with the patient and/or guardian regarding: the historical points, exam findings, and any diagnostic results supporting the discharge/admit diagnosis, lab results, radiology results, the need for outpatient follow up, a family practitioner, to return to the emergency department if symptoms worsen or persist or if there are any questions or concerns that arise at home. Response to treatment: the patient's symptoms have markedly improved after treatment. 12/15 22:55 Order name: Basic Metabolic Panel [facility] 12/15 22:55 Order name: CBC with Diff [facility] 12/15 22:55 Order name: LFT's [facility] 12/15 22:55 Order name: Magnesium [facility] 12/15 22:55 Order name: NT PRO-BNP [facility] 12/15 22:55 Order name: PT-INR [facility] 12/15 22:55 Order name: Troponin (emerg Dept Use Only) [facility] 12/16 00:13 Order name: Urine Dipstick--Ancillary (enter results) 12/16 00:13 Order name: Urine --Ancillary (enter results) 12/16 00:23 Order name: Protime (+INR); Complete Time: 00:44 EDMS 12/16 00:23 Order name: CBC with Automated Diff; Complete Time: 00:44 EDMS 12/16 00:26 Order name: Urine --Ancillary; Complete Time: 00:44 EDMS 12/16 00:26 Order name: Urine Dipstick-Ancillary; Complete Time: 00:44 EDMS 12/16 01:13 Order name: Basic Metabolic Panel; Complete Time: 01:21 EDMS 12/15 22:55 Order name: XRAY Chest (1 view) [facility] 12/15 22:55 Order name: EKG; Complete Time: 22:56 [facility] 12/15 22:55 Order name: Cardiac monitoring; Complete Time: 23:01 [facility] 12/15 22:55 Order name: EKG - Nurse/Tech; Complete Time: 23:01 [facility] 12/15 22:55 Order name: IV Saline Lock; Complete Time: 23:38 [facility] 12/15 22:55 Order name: Labs collected and sent; Complete Time: 23:38 [facility] 12/15 22:55 Order name: O2 Per Protocol; Complete Time: 23:01 [facility] 12/15 22:55 Order name: O2 Sat Monitoring; Complete Time: 23:01 [facility] 12/16 01:13 Order name: Liver (Hepatic) Function; Complete Time: 01:21 EDMS 12/16 01:13 Order name: Troponin (Emerg Dept Use Only); Complete Time: 01:21 EDMS 12/16 01:13 Order name: NT PRO-BNP; Complete Time: :21 EDMS 12/16 01:13 Order name: Magnesium; Complete Time: 01:21 EDMS Administered Medications: 00:00 Drug: Zofran 4 mg Route: IVP; Site: left antecubital; ea 01:01 Follow up: Response: No adverse reaction; Nausea is decreased ea 00:03 Drug: fentaNYL (PF) 50 mcg Route: IVP; Site: left antecubital; ea 01:02 Follow up: Response: No adverse reaction; Pain is decreased ea 00:07 Drug: TORadol 30 mg Route: IVP; Site: left antecubital; ea 01:02 Follow up: Response: No adverse reaction; Pain is decreased ea Disposition: 01/21/19 01:31 Discharged to Home. Impression: Muscle spasm of back, Other chest pain - chest wall pain. - Condition is Stable. - Discharge Instructions: Chest Wall Pain, Muscle Cramps and Spasms, Back Exercises, [id number], Heat Therapy. - Prescriptions for Ibuprofen 800 mg Oral Tablet - take 1 tablet by ORAL route every 12 hours As needed take with food; 20 tablet. Ultracet 37.5- 325 mg Oral Tablet - take 1 tablet by ORAL route every 6 hours - for up to 5 days; do not exceed 8 tablets per day.; 30 tablet. Zanaflex 4 mg Oral Tablet - take 1 tablet by ORAL route every 8 hours As needed; 20 tablet. - Family Work Release, Medication Reconciliation Form, Thank You Letter, Antibiotic Education, Prescription Opioid Use form. - Follow up: Private Physician; When: 2 - 3 days; Reason: Recheck today's complaints, Continuance of care, Re-evaluation by your physician. - Problem is new. - Symptoms have improved. Addendum: 12/28/2018 07:02 Co-signature as Attending Physician, Luis Gore MD Available for consultation at p s1 all times. . Signatures: Dispatcher [employer] EDMS Lai Keith PA PA jr8 Debi Rangel RN RN Luis Eduardo MD MD ps1 Corrections: (The following items were deleted from the chart) 12/16 01:47 01:31 12/16/2018 01:31 Discharged to Home. Impression: Muscle spasm of back; Other ea chest pain - chest wall pain. Condition is Stable. Forms are Medication Reconciliation Form, Thank You Letter, Antibiotic Education, Prescription Opioid Use. Follow up: Private Physician; When: 2 - 3 days; Reason: Recheck today's complaints, Continuance of care, Re-evaluation by your physician. Problem is new. Symptoms have improved. jr8
[2018-12-16 03:34] VITALS: TEMP 98.6
[2018-12-16 03:39] VITALS: BP 129/94; O2SAT 99
--- NOTE | 2018-12-16 08:35 | RAD REPORT ---
EXAM DESCRIPTION: Francoise Single View12/15/2018 11:07 pm CLINICAL HISTORY: Chest pain COMPARISON: August 2018 FINDINGS: The lungs appear clear of acute infiltrate. The heart is normal size IMPRESSION: No acute abnormalities displayed
--- NOTE | 2018-12-16 11:44 | EKG ---
Test Date: 2018-12-15 Test Time: 22:50:38 Finishing Range Supervisor: FIOR MEASUREMENT RESULTS: Intervals: Rate: 65 NH: 188 QRSD: 84 QT: 370 QTc: 384 [place]: P: 48 NH: 188 QRS: 36 T: 32 INTERPRETIVE STATEMENTS: Normal sinus rhythm Normal ECG Compared to ECG 09/09/2018 15:07:43 No significant changes Electronically Signed On 12-16-18 11:42:51 LOAN COORDINATOR by Aquilino De Anda
== END 2018-12-16 01:47 | disposition home or self-care (01) ==
LOC: ER 22:44
DX: M62.830 Muscle spasm of back (principal); J45.909 Unspecified asthma, uncomplicated; I10 Essential (primary) hypertension; Z91.013 Allergy to seafood
CPT/HCPCS: 36415; 71045; 80048; 80076; 81003; 81025; 83735; 83880; 84484; 85025; 85610; 93005; J2405; J3010

== ENCOUNTER 2019-02-18 10:50 | Emergency (ER) | payer OTHER ==
[2019-02-18 13:41] LABS: Urine Specific Gravity 1.025 (1.005-1.030)
[2019-02-18 13:42] LABS: Urine Blood NEGATIVE (NEG); Urine Glucose NEGATIVE (NEG); Urine Protein NEGATIVE (NEG); Urine Specific Gravity 1.025 (1.005-1.030)
[2019-02-18] MEDS ORDERED: NA CHLORIDE 0.9% 1,000 ML ONE (13:45)
[2019-02-18 13:58] LABS: Urine Bacteria <20 /HPF (<20); Urine Culture Reflex Order NOT NEEDED; Urine Mucus 3+ /HPF (NONE SEEN); Urine RBC <5 /HPF (NONE SEEN)
[2019-02-18 13:59] LABS: Absolute Lymphocytes (CBC) 1.8 K/uL (0.7-4.9); Absolute Monocytes 0.8 K/uL (0.1-1.3); Absolute Neutrophil 5.5 K/uL (1.8-8.0); Basophils % 0.5 % (0-1.3); Eosinophils % 2.3 % (0-4.4); Hematocrit 40.6 % (36.0-45.0); Lymphocytes % 22.2 % (15.3-44.8); MPV 8.9 fL (7.6-11.3); Monocytes % 9.1 % (3.3-12.3); RBC Red Blood Cell Count 4.32 M/uL (3.86-4.86)
[2019-02-18 14:01] LABS: ALT/SGPT 15 U/L (12-78); AST/SGOT 10 U/L (15-37); Albumin 3.5 g/dL (3.4-5.0); Alkaline Phosphatase 45 U/L (45-117); BUN Blood Urea Nitrogen 10 mg/dL (7-18); Bicarbonate 27 mmol/L (21-32); Bilirubin Total 0.3 mg/dL (0.2-1.0); Glucose Level 72 mg/dL (74-106); Potassium 3.9 mmol/L (3.5-5.1); Protein, Total 7.1 g/dL (6.4-8.2); Sodium Level 137 mmol/L (136-145)
--- NOTE | 2019-02-18 15:09 | ER ---
Nurse's Notes [facility] Name: Dede Mcgee Age: 28 yrs Sex: Female : 1990 Arrival Date: 02/18/2019 Time: 10:52 Bed 26 Private MD: Nina Terrell Diagnosis: Dizziness and giddiness;Palpitations Presentation: 02/18 11:00 Presenting complaint: Patient states: LMP- 12/15/18; 9 weeks ; i woke up hj vomiting this AM; felt dizzy, and i feel my hear rate is irregular; denies chest pain; reports nausea; denies abd pain or vaginal bleed;. Transition of care: patient was not received from another setting of care. 11:00 Method Of Arrival: Ambulatory 11:02 Onset of symptoms was February 18, 2019 at 07:00. Risk Assessment: Do you want to hurt hj yourself or someone else? Patient reports no desire to harm self or others. Initial Sepsis Screen: Does the patient meet any 2 criteria? No. Patient's initial sepsis screen is negative. Does the patient have a suspected source of infection? No. Patient's initial sepsis screen is negative. Care prior to arrival: None. 11:02 Acuity: JOSLYN 3 hj Triage Assessment: 11:03 General: Appears in no apparent distress. uncomfortable, Behavior is calm, cooperative, hj appropriate for age. Pain: Denies pain. NON LINEAR EDITOR: 11:03 [facility] 12/15/2018 Historical: - Allergies: 11:02 montelukast; hj 11:02 SHELLFISH; hj - Home Meds: 11:02 Albuterol Inhl [Active]; hj - PMHx: 11:02 Asthma; Hypertension; Ovarian cyst; hj - PSHx: 11:02 ovarian cyst removal; hj - Immunization history:: Adult Immunizations up to date. - Social history:: Smoking status: Patient/guardian denies using tobacco, Patient/guardian denies using alcohol. - Ebola Screening: : Patient negative for fever greater than or equal to 101.5 degrees Fahrenheit, and additional compatible Ebola Virus Disease symptoms Patient denies exposure to infectious person Patient denies travel to an Ebola-affected area in the 21 days before illness onset. - Family history:: not pertinent. - Hospitalizations: : No recent hospitalization is reported. Screenin:03 Abuse screen: Denies threats or abuse. Denies injuries from another. Nutritional hj screening: No deficits noted. Tuberculosis screening: No symptoms or risk factors identified. Fall Risk None identified. Assessment: 12:05 General: Appears in no apparent distress. comfortable, Behavior is calm, cooperative, aj1 appropriate for age. Pain: Denies pain. Neuro: Level of Consciousness is awake, alert, obeys commands, Oriented to person, place, time, situation, Gait is steady, Speech is normal, Reports dizziness. Cardiovascular: Reports palpitations, Patient's skin is warm and dry. Rhythm is sinus rhythm Chest pain is denied. Respiratory: Airway is patent Respiratory effort is even, unlabored, Respiratory pattern is regular, symmetrical. GI: Reports nausea, vomiting. : No signs and/or symptoms were reported regarding the genitourinary system. EENT: No signs and/or symptoms were reported regarding the EENT system. Derm: No signs and/or symptoms reported regarding the dermatologic system. Skin is pink, warm \T\ dry. normal. Musculoskeletal: No signs and/or symptoms reported regarding the musculoskeletal system. Circulation, motion, and sensation intact. 13:05 Reassessment: Patient appears in no apparent distress at this time. No changes from aj1 previously documented assessment. Patient and/or family updated on plan of care and expected duration. Pain level reassessed. Patient is alert, oriented x 3, equal unlabored respirations, skin warm/dry/pink. 14:24 Reassessment: Patient appears in no apparent distress at this time. Patient and/or iw family updated on plan of care and expected duration. Pain level reassessed. Patient is alert, oriented x 3, equal unlabored respirations, skin warm/dry/pink. pt ambulatory to bathroom, placed back on monitor, VSS, family at bedside. 15:20 Reassessment: Patient appears in no apparent distress at this time. No changes from aj1 previously documented assessment. Patient and/or family updated on plan of care and expected duration. Pain level reassessed. Patient is alert, oriented x 3, equal unlabored respirations, skin warm/dry/pink. Vital Signs: 11:03 BP 121 / 74; Pulse 81; Resp 18; Temp 98.0(TE); Pulse Ox 100% on R/A; Weight 81.65 kg; hj Height 5 ft. 10 in. (177.80 cm); Pain 0/10; 13:30 BP 123 / 99; Pulse 63; Resp 19; Pulse Ox 100% ; aj1 14:30 BP 125 / 76; Pulse 67; Resp 18; Pulse Ox 100% on R/A; aj1 11:03 Body Mass Index 25.83 (81.65 kg, 177.80 cm) ED Course: 10:52 Patient arrived in ED. as 10:52 Nina Terrell MD is Private Physician. as 11:02 Triage completed. hj 11:03 Arm band placed on right wrist. hj 11:03 Patient has correct armband on for positive identification. Placed in gown. Bed in low hj position. Call light in reach. Side rails up X 1. Adult w/ patient. 11:25 EKG done, by technical services representative. reviewed by Mook Villasenor MD. sm3 12:05 No provider procedures requiring assistance completed. aj1 12:07 Mook Villasenor MD is Attending Physician. wa 12:58 Lois Ray RN is Primary Nurse. aj1 13:10 Urine collected: clean catch specimen, clear, raji colored, Amount Voided: 100mL. jp3 13:22 Urine Microscopic Only Sent. jp3 13:22 Urine Culture Sent. jp3 13:28 Inserted saline lock: 20 gauge in left antecubital area, using aseptic technique. Blood aj1 collected. 15:20 IV discontinued, intact, bleeding controlled, No redness/swelling at site. Pressure aj1 dressing applied. Administered Medications: 13:37 Drug: NS 0.9% 1000 ml Route: IV; Rate: 1 bolus; Site: left antecubital; iw 15:20 Follow up: IV Status: Completed infusion; IV Intake: 1000ml aj1 Intake: 15:20 IV: 1000ml; Total: 1000ml. aj1 Outcome: 15:08 Discharge ordered by . wa 15:20 Discharged to home ambulatory. aj1 15:20 Condition: good 15:20 Discharge instructions given to patient, Instructed on discharge instructions, follow up and referral plans. Demonstrated understanding of instructions, follow-up care. 15:22 Patient left the ED. aj1 Signatures: Lois Ray RN RN aj1 Sabrina Russo Irene, RN RN Mohit Parker RN RN Mook Prater MD MD wa Montes, Shakira sm3 [employer] jp3 Corrections: (The following items were deleted from the chart) 11:06 11:03 81.65 kg; Height 5 ft. 10 in.; BMI: 25.8; Pain 0/10; shyam howe
--- NOTE | 2019-02-18 15:09 | EDPHYS ---
Physician Documentation [facility] Name: Dede Mcgee Age: 28 yrs Sex: Female : 1990 Arrival Date: 02/18/2019 Time: 10:52 Bed 26 Private MD: Nina Terrell ED Physician Mook Villasenor HPI: 02/18 17:46 This 28 yrs old Black Female presents to ER via Ambulatory with complaints of Dizziness, Weakness, Irregular Pulse. 17:46 The patient presents with dizziness. Onset: The symptoms/episode began/occurred this morning. Context: occurred at home, occurred while the patient was at rest, just prior to the episode the patient experienced vomiting, states vomited this AM. 9 weeks preg. noted dizziness and occasional palpitations. denies CP or SOB. Modifying factors: The symptoms are alleviated by nothing, the symptoms are aggravated by nothing. Associated signs and symptoms: Pertinent negatives: abdominal pain, chest pain, shortness of breath, vag bleed or abd pain. Severity of symptoms: At their worst the symptoms were moderate in the emergency department the symptoms have improved moderately. Patient's baseline: Neuro: alert and fully oriented, Motor: no deficits, Ambulation: walks without assistance, Speech: normal, The patient has a previous history of pre-eclampsia. The patient has not experienced similar symptoms in the past. The patient has not recently seen a physician. 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 - Social history:: Smoking status: Patient/guardian denies using tobacco, Patient/guardian denies using alcohol. - Ebola Screening: : Patient negative for fever greater than or equal to 101.5 degrees Fahrenheit, and additional compatible Ebola Virus Disease symptoms Patient denies exposure to infectious person Patient denies travel to an Ebola-affected area in the 21 days before illness onset. - Family history:: not pertinent. - Hospitalizations: : No recent hospitalization is reported. ROS: 17:49 Constitutional: Negative for fever, chills, and weight loss, Eyes: Negative for injury, wa pain, redness, and discharge, ENT: Negative for injury, pain, and discharge, Neck: Negative for injury, pain, and swelling, Respiratory: Negative for shortness of breath, cough, wheezing, and pleuritic chest pain, Back: Negative for injury and pain, : Negative for injury, bleeding, discharge, and swelling, MS/Extremity: Negative for injury and deformity, Skin: Negative for injury, rash, and discoloration, Psych: Negative for depression, anxiety, suicide ideation, homicidal ideation, and hallucinations. 17:49 Cardiovascular: Positive for palpitations, Negative for chest pain, edema, orthopnea. 17:49 Respiratory: Negative for cough, shortness of breath. 17:49 Neuro: Positive for dizziness, Negative for altered mental status, loss of consciousness. 17:49 All other systems are negative. Exam: 17:50 Constitutional: This is a well developed, well nourished patient who is awake, alert, wa and in no acute distress. Head/Face: Normocephalic, atraumatic. Eyes: Pupils equal round and reactive to light, extra-ocular motions intact. Lids and lashes normal. Conjunctiva and sclera are non-icteric and not injected. Cornea within normal limits. Periorbital areas with no swelling, redness, or edema. ENT: Nares patent. No nasal discharge, no septal abnormalities noted. Tympanic membranes are normal and external auditory canals are clear. Oropharynx with no redness, swelling, or masses, exudates, or evidence of obstruction, uvula midline. Mucous membranes moist. Neck: Trachea midline, no thyromegaly or masses palpated, and no cervical lymphadenopathy. Supple, full range of motion without nuchal rigidity, or vertebral point tenderness. No Meningismus. Chest/axilla: Normal chest wall appearance and motion. Nontender with no deformity. No lesions are appreciated. Respiratory: Lungs have equal breath sounds bilaterally, clear to auscultation and percussion. No rales, rhonchi or wheezes noted. No increased work of breathing, no retractions or nasal flaring. Abdomen/GI: Soft, non-tender, with normal bowel sounds. No distension or tympany. No guarding or rebound. No evidence of tenderness throughout. Back: No spinal tenderness. No costovertebral tenderness. Full range of motion. Skin: Warm, dry with normal turgor. Normal color with no rashes, no lesions, and no evidence of cellulitis. MS/ Extremity: Pulses equal, no cyanosis. Neurovascular intact. Full, normal range of motion. Psych: Awake, alert, with orientation to person, place and time. Behavior, mood, and affect are within normal limits. 17:50 Cardiovascular: Rate: normal, Rhythm: regular, Pulses: no pulse deficits are appreciated, Heart sounds: normal, Edema: is not appreciated, JVD: is not appreciated. 17:50 Neuro: Orientation: is normal, Mentation: is normal, Cranial nerves: grossly normal, Motor: is normal, Gait: is steady. Vital Signs: 11:03 BP 121 / 74; Pulse 81; Resp 18; Temp 98.0(TE); Pulse Ox 100% on R/A; Weight 81.65 kg; hj Height 5 ft. 10 in. (177.80 cm); Pain 0/10; 13:30 BP 123 / 99; Pulse 63; Resp 19; Pulse Ox 100% ; aj1 14:30 BP 125 / 76; Pulse 67; Resp 18; Pulse Ox 100% on R/A; aj1 11:03 Body Mass Index 25.83 (81.65 kg, 177.80 cm) MDM: 12:07 Patient medically screened. wa 17:50 Differential diagnosis: cardiac arrhythmia, vertigo, r/o infection. Data reviewed: ms vital signs, nurses notes. Test interpretation: by ED physician or midlevel provider: UA noted nml. CBC and CMP wnl. . 17:52 Test interpretation: by ED physician or midlevel provider: EKG: HR 73. nml axis. nml wa QRS. no note dysrhythmic changes. 17:52 Response to treatment: the patient's symptoms have markedly improved after treatment. ms 17:52 ED course: received fluids. monitored. no worsening changes noted. improved with fluids wa prior to d/c. advised close f/u with he need to return for rapidly worsening symptoms. 02/18 13:01 Order name: Urine Culture ms 02/18 13:02 Order name: Urine Microscopic Only; Complete Time: 14:52 ms 02/18 13:02 Order name: CBC with Diff; Complete Time: 14:52 02/18 13:02 Order name: CMP; Complete Time: 14:52 ms 02/18 13:24 Order name: Urine Dipstick--Ancillary (enter results); Complete Time: 14:52 02/18 13:25 Order name: Urine --Ancillary (enter results); Complete Time: 14:52 02/18 11:04 Order name: EKG - Nurse/Tech; Complete Time: 11:04 02/18 13:01 Order name: Urine Dipstick-Ancillary (obtain specimen); Complete Time: 13:22 ms 02/18 13:02 Order name: Cardiac monitoring; Complete Time: 13:07 ms 02/18 14:22 Order name: EKG Electrocardiogram EDMS Administered Medications: 13:37 Drug: NS 0.9% 1000 ml Route: IV; Rate: 1 bolus; Site: left antecubital; 15:20 Follow up: IV Status: Completed infusion; IV Intake: 1000ml aj1 Disposition: 02/18/19 15:08 Discharged to Home. Impression: Dizziness and giddiness, Palpitations. - Condition is Stable. - Discharge Instructions: Dizziness, Palpitations. - Family Work Release, Medication Reconciliation Form, Thank You Letter, Antibiotic Education, Prescription Opioid Use form. - Follow up: Private Physician; When: 2 - 3 days; Reason: Recheck today's complaints. - Problem is new. - Symptoms have improved. - Notes: follow up with your doctor. return here immediately if worsening concerns. drink ample fluids to stay hydrated Signatures: Dispatcher [employer] EDMS Lois Ray RN RN aj1 Mirna Lutz RN RN Mohit Parker RN RN Mook Villasenor MD MD wa Corrections: (The following items were deleted from the chart) 15:22 15:08 02/18/2019 15:08 Discharged to Home. Impression: Dizziness and giddiness; aj1 Palpitations. Condition is Stable. Forms are Medication Reconciliation Form, Thank You Letter, Antibiotic Education, Prescription Opioid Use. Follow up: Private Physician; When: 2 - 3 days; Reason: Recheck today's complaints. Problem is new. Symptoms have improved. wa
[2019-02-18 15:26] VITALS: TEMP 98; O2SAT 100
[2019-02-18 15:29] VITALS: BP 125/76
--- NOTE | 2019-02-18 17:15 | EKG ---
Test Date: 2019-02-18 Test Time: 11:03:58 Zoo Keeper: LEE MEASUREMENT RESULTS: Intervals: Rate: 73 SC: 172 QRSD: 86 QT: 354 QTc: 389 Matthews: P: 10 SC: 172 QRS: 54 T: 30 INTERPRETIVE STATEMENTS: Normal sinus rhythm Normal ECG Compared to ECG 12/15/2018 22:50:38 No significant changes Electronically Signed On 02-18-19 17:14:14 CDT by Rangel Gore
== END 2019-02-18 15:22 | disposition home or self-care (01) ==
LOC: ER 10:50
DX: R42 Dizziness and giddiness (principal); R00.2 Palpitations; J45.909 Unspecified asthma, uncomplicated; I10 Essential (primary) hypertension; Z88.8 Allergy status to other drugs, medicaments and biological substances; Z91.013 Allergy to seafood
CPT/HCPCS: 36415; 80053; 81003; 81015; 81025; 85025; 87086; 87088; 93005; 96360; 96361; 99284; J7030

== ENCOUNTER 2019-09-12 04:12 | Inpatient (IN) | payer OTHER ==
[2019-09-12] MEDS ORDERED: MIDAZOLAM HCL 2 MG/2 ML INJ IV PRN (04:15)
[2019-09-12] MEDS ORDERED: BUTORPHANOL 1 MG/ML INJ IV PRN (04:15)
[2019-09-12] MEDS ORDERED: CARBOPROST TROME 250 MCG/ML IM PRN (04:15)
[2019-09-12] MEDS ORDERED: METHYLERGONOVINE 0.2MG/ML AMP IM PRN (04:15)
[2019-09-12] MEDS ORDERED: Ringers Lactate 1,000 ML IV PRN (04:15)
[2019-09-12] MEDS ORDERED: PROMETHAZINE 25 MG/ML VIAL IM PRN (04:15)
[2019-09-12] MEDS ORDERED: Ringers Lactate 1,000 ML IV SCH (05:00)
[2019-09-12] MEDS ORDERED: OXYTOCIN/LR 20 UNIT/1,000 ML BAG IV SCH ×2 (05:00→10:00)
[2019-09-12 05:09] VITALS: BMI 30.8
[2019-09-12 06:14] LABS: Absolute Lymphocytes (CBC) 1.7 K/uL (0.7-4.9); Basophils % 0.5 % (0-1.3); Hematocrit 37.1 % (36.0-45.0); Lymphocytes % 20.2 % (15.3-44.8); MPV 9.4 fL (7.6-11.3); RBC Red Blood Cell Count 4.07 M/uL (3.86-4.86)
[2019-09-12 06:14] LABS: Urine Appearance CLEAR; Urine Bilirubin NEGATIVE (NEG); Urine Blood NEGATIVE (NEG); Urine Color YELLOW; Urine Glucose NEGATIVE (NEG); Urine Protein NEGATIVE (NEG); Urine pH 6.5 (5.0-7.0)
[2019-09-12 06:21] LABS: Calcium Oxalate Crystals- Ur MANY (NONE SEEN); Urine Bacteria <20 /HPF (<20); Urine Culture Reflex Order REFLEXED; Urine RBC NONE SEEN /HPF (NONE SEEN)
[2019-09-12 09:17] LABS: Urine Appearance CLEAR; Urine Bilirubin NEGATIVE (NEG); Urine Blood NEGATIVE (NEG); Urine Color YELLOW; Urine Glucose NEGATIVE (NEG); Urine Protein NEGATIVE (NEG); Urine Specific Gravity 1.015 (1.005-1.030); Urine Urobilinogen 0.2 mg/dL (0.2-1.0); Urine pH 7.5 (5.0-7.0)
[2019-09-12 09:18] LABS: Urine Microscopic Reflex NO UMIC
[2019-09-12] MEDS ORDERED: LIDOCAINE 1% 20 ML MDV ONE (09:26)
[2019-09-12] MEDS ORDERED: Oxycodone HCl/Acetaminophen 1 TAB TAB PO PRN ×2 (09:53)
[2019-09-12] MEDS ORDERED: DIPHENHYDRAMINE 25 MG TAB/CAP PO PRN (09:53)
[2019-09-12] MEDS ORDERED: IBUPROFEN 200 MG TAB PO PRN (09:53)
[2019-09-12] MEDS ORDERED: DOCUSATE NA/SENNA CONC 1 TAB PO PRN (09:53)
[2019-09-12] MEDS ORDERED: ACETAMINOPHEN 500 MG TAB PO PRN (09:53)
[2019-09-12] MEDS ORDERED: BISACODYL 10 MG RECTAL SUPP RECT PRN (09:53)
--- NOTE | 2019-09-12 12:35 | PREOPHP ---
Date of Admission: 09/12/2019 This 29-year-old, 4, para 1, 39 weeks, 3 cm, still posterior and vertex, well applied. Ruptu re of membranes, clear fluid. FHTs normal, reactive. Labor talk given. Patient states she will be going natural with possible IV analgesics. She knows she is allowed to change her mind if she decide s to. Full labor talk given. Anticipate delivery sometime later today. VIKA/TYSON Voice ID: [id number]
[2019-09-12 20:38] LABS: RPR (Rapid Plasma Reagin) NON-REACT (NON-REACT)
--- NOTE | 2019-09-12 21:05 | OP ---
Surgeon: Tra Avila MD Description Of Procedure: A 29-year-old, 4, para 1, 39 weeks, 3 cm on admission. Rupture of membranes, clear fluid. Patient received Stadol 1 mg one time during the labor, went rapidly to com plete. Second stage of 15 to 20 minutes. Spontaneous vaginal delivery with an estimated 7-pound fem sara, Apgars of 9 and 9. Small first-degree laceration just below the clitoris, 2-0 chromic 2 figure- of-eight stitches after local infiltration. Schultze delivery of the placenta, which was inspected a nd noted to be intact and normal. Less than 350 mL blood loss. Rh positive. Immune to Rubella. Ne gative beta strep screen. Tolerated all procedures well. Final Diagnosis: Term intrauterine 39 weeks, vaginal delivery. VIKA/TYSON Voice ID: [id number] Report ID: [id number]
[2019-09-13 11:46] VITALS: BP 130/83; TEMP 97.6
--- NOTE | 2019-09-13 21:02 | DS ---
Date of Discharge: 09/13/2019 This is a 29-year-old, 4, para 1 female at 39 weeks delivered a 6 pounds, 3 ounce female. Ap gars 9 and 9. Uneventful labor and delivery. Local infiltration for repair of very small first-degr ee laceration. Two vndaex-ml-fablo stitches, 2-0 chromic below the clitoris. Schultze delivery of t he placenta was inspected and noted to be intact and normal. Less than 350 mL blood loss. Rh positi ve, immune to Rubella. Negative beta strep screen. ; afebrile, ambulating and voiding. L ochia is normal. Request analgesics on dismissal. We will give her tramadol 20 pills 1 every 6 hour s as needed. She has had her Tdap shot and offered flu shot before she leaves. To follow up with me in office on Sunday for blood pressure evaluation. She has had some blood pressures that are slight ly elevated. Protein negative. 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 We will follow up on Sunday. Final Diagnoses: Term intrauterine at 39 weeks, vaginal delivery. VIKA/TYSON Voice ID: [id number] Report ID: [id number]
[2019-09-16 03:54] LABS: HBsAG Nonreactive (Nonreactive)
== END 2019-09-13 12:00 | disposition home or self-care (01) | DRG 807 ==
LOC: 2ND-WC 04:12
PROVIDERS: ADMIT Specialist; ATTEND Specialist
PROC: 10E0XZZ Delivery of Products of Conception, External Approach (ICD-10-PCS; principal; 2019-09-12)
PROC: 10907ZC Drainage of Amniotic Fluid, Therapeutic from Products of Conception, Via Natural or Artificial Opening (ICD-10-PCS; 2019-09-12)
PROC: 0HQ9XZZ Repair Perineum Skin, External Approach (ICD-10-PCS; 2019-09-12)
DX: O70.0 First degree perineal laceration during delivery (principal); Z37.0 Single live birth; Z3A.39 39 weeks gestation of pregnancy
CPT/HCPCS: 36415; 81001; 81003; 85025; 86592; 86901; 87086; 87088; 87340; 99218; J0595; J2210; J2550; J2590; J7120

== ENCOUNTER 2019-12-27 22:22 | Emergency (ER) | payer OTHER, SELFPAY ==
[2019-12-27] MEDS ORDERED: ONDANSETRON 4 MG/2 ML VIAL ONE (22:43)
[2019-12-27] MEDS ORDERED: NA CHLORIDE 0.9% 1,000 ML ONE (22:43)
[2019-12-27 22:57] LABS: Absolute Lymphocytes (CBC) 1.9 K/uL (0.7-4.9); Basophils % 0.9 % (0-1.3); Hematocrit 41.2 % (36.0-45.0); Lymphocytes % 20.4 % (15.3-44.8); MPV 8.9 fL (7.6-11.3); RBC Red Blood Cell Count 4.55 M/uL (3.86-4.86)
[2019-12-27 23:14] LABS: ALT/SGPT 37 U/L (12-78); AST/SGOT 17 U/L (15-37); Albumin 4.5 g/dL (3.4-5.0); Alkaline Phosphatase 82 U/L (45-117); BUN Blood Urea Nitrogen 14 mg/dL (7-18); Bicarbonate 29 mmol/L (21-32); Bilirubin Total 0.4 mg/dL (0.2-1.0); Glucose Level 89 mg/dL (74-106); Potassium 3.3 mmol/L (3.5-5.1); Protein, Total 8.5 g/dL (6.4-8.2); Sodium Level 139 mmol/L (136-145)
[2019-12-28] MEDS ORDERED: MORPHINE 4 MG/ML SYR ONE (00:06)
--- NOTE | 2019-12-28 01:16 | ER ---
Nurse's Notes [facility] Name: Dede Mcgee Age: 29 yrs Sex: Female : 1990 Arrival Date: 12/27/2019 Time: 22:27 Bed 5 Private MD: Diagnosis: Migraine without aura, not intractable Presentation: 12/27 22:29 Presenting complaint: EMS states: Pt reports having a migraine and high blood pressure. jb4 Last B/p was 141/101 pulse of 75. Pt took 400mg of Motrin [employer] and was given 1g of Tylenol by EMS. Transition of care: patient was not received from another setting of care. Onset of symptoms was December 27, 2019. Risk Assessment: Do you want to hurt yourself or someone else? Patient reports no desire to harm self or others. Initial Sepsis Screen: Does the patient meet any 2 criteria? No. Patient's initial sepsis screen is negative. Does the patient have a suspected source of infection? No. Patient's initial sepsis screen is negative. Care prior to arrival: Medication(s) given: Tylenol, 1000 mg. 22:29 Method Of Arrival: EMS: [facility] jb4 22:29 Acuity: JOSLYN 3 jb4 Triage Assessment: 22:29 General: Appears in no apparent distress. uncomfortable, Behavior is calm, cooperative, jb4 appropriate for age. Pain: Complains of pain in headache Pain does not radiate. Pain currently is 10 out of 10 on a pain scale. Pain began 5pm. 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 - Coronavirus screen:: The patient has NOT traveled to [place], [place], or [place] in the past 14 days. Proceed with normal triage process as indicated. The patient has NOT had contact with known/suspected case of Coronavirus? Proceed with normal triage procedures. - Social history:: Smoking status: Patient denies any tobacco usage or history of. Patient/guardian denies using alcohol, street drugs. - Ebola Screening: : No symptoms or risks identified at this time. Screenin:29 Abuse screen: Denies threats or abuse. Nutritional screening: No deficits noted. jb4 Tuberculosis screening: No symptoms or risk factors identified. Fall Risk None identified. Assessment: 22:29 General: Appears in no apparent distress. uncomfortable, Behavior is calm, cooperative, jb4 appropriate for age. Pain: Complains of pain in Headache Pain does not radiate. Pain currently is 10 out of 10 on a pain scale. Neuro: Level of Consciousness is awake, alert, obeys commands, Oriented to person, place, time, situation, Reports headache photophobia. Cardiovascular: Patient's skin is warm and dry. Respiratory: Airway is patent Respiratory effort is even, unlabored, Respiratory pattern is regular, symmetrical. GI: Reports nausea. : No signs and/or symptoms were reported regarding the genitourinary system. EENT: No signs and/or symptoms were reported regarding the EENT system. Derm: Skin is intact, Skin is pink, warm \T\ dry. 12/28 00:00 Reassessment: Patient appears in no apparent distress at this time. Patient and/or jb4 family updated on plan of care and expected duration. Pain level reassessed. Patient is alert, oriented x 3, equal unlabored respirations, skin warm/dry/pink. Patient states feeling better. 01:26 Reassessment: Patient appears in no apparent distress at this time. Patient and/or jb4 family updated on plan of care and expected duration. Pain level reassessed. Patient is alert, oriented x 3, equal unlabored respirations, skin warm/dry/pink. Pt verbalized understanding of d/c and follow up instructions, Ambulated out of ED with steady gait with significant other. Vital Signs: 12/27 22:29 BP 148 / 110; Pulse 76; Resp 16; Temp 97.4(TE); Pulse Ox 100% on R/A; Weight 83.46 kg jb4 (R); Height 5 ft. 10 in. (177.80 cm) (R); Pain 10/10; 12/28 00:00 BP 128 / 97; Pulse 63; Resp 16; Pulse Ox 100% on R/A; jb4 01:00 BP 125 / 87; Pulse 63; Resp 16; Pulse Ox 100% on R/A; jb4 12/27 22:29 Body Mass Index 26.40 (83.46 kg, 177.80 cm) jb4 ED Course: 12/27 22:27 Patient arrived in ED. cl3 22:28 Brent Cornelius MD is Attending Physician. tw4 22:29 Piter Kelly, RN is Primary Nurse. jb4 22:29 Arm band placed on right wrist. jb4 22:29 Patient has correct armband on for positive identification. Placed in gown. Bed in low jb4 position. Call light in reach. Side rails up X 1. Pulse ox on. NIBP on. 22:30 Triage completed. jb4 22:35 Initial lab(s) drawn, by me, sent to lab. Inserted saline lock: 20 gauge in right jb4 antecubital area, using aseptic technique. Blood collected. 12/28 01:28 No provider procedures requiring assistance completed. IV discontinued, intact, jb4 bleeding controlled, No redness/swelling at site. Pressure dressing applied. Administered Medications: 12/27 22:55 Drug: Zofran 4 mg Route: IVP; Site: right antecubital; jb4 23:25 Follow up: Response: No adverse reaction; Vomiting decreased jb4 22:55 Drug: NS 0.9% 1000 ml Route: IV; Rate: 1 bolus; Site: right antecubital; jb4 12/28 00:00 Follow up: Response: No adverse reaction; IV Status: Completed infusion; IV Intake: jb4 1000ml 00:08 Drug: morphine 4 mg {Note: Rass score 0.} Route: IVP; Site: right antecubital; jb4 00:30 Follow up: Response: No adverse reaction; Pain is decreased jb4 Intake: 00:00 IV: 1000ml; Total: 1000ml. jb4 Outcome: 01:14 Discharge ordered by . tw4 01:28 Discharged to home ambulatory, with significant other. jb4 01:28 Condition: stable 01:28 Discharge instructions given to patient, significant other, Instructed on discharge instructions, follow up and referral plans. no driving heavy equipment, Demonstrated understanding of instructions, follow-up care, medications, Prescriptions given X 1. 01:30 Patient left the ED. jb4 Signatures: Piter Kelly, HEIDI RN jb4 Brent Cornelius MD MD tw4 Neo Go cl3
--- NOTE | 2019-12-28 01:16 | EDPHYS ---
Physician Documentation [facility] Name: Dede Mcgee Age: 29 yrs Sex: Female : 1990 Arrival Date: 12/27/2019 Time: 22:27 Bed 5 Private MD: ED Physician Brent Cornelius HPI: 12/28 01:28 This 29 yrs old Black Female presents to ER via EMS with complaints of High Blood tw4 Pressure. 01:28 The patient complains of pain to the forehead. The patient describes the headache as tw4 aching. Onset: The symptoms/episode began/occurred today. Associated signs and symptoms: The patient has no apparent associated signs or symptoms. Severity of symptoms: At its worst the pain was moderate, in the emergency department the pain is unchanged. The patient has not experienced similar symptoms in the past. 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 - Coronavirus screen:: The patient has NOT traveled to [place], [place], or [place] in the past 14 days. Proceed with normal triage process as indicated. The patient has NOT had contact with known/suspected case of Coronavirus? Proceed with normal triage procedures. - Social history:: Smoking status: Patient denies any tobacco usage or history of. Patient/guardian denies using alcohol, street drugs. - Ebola Screening: : No symptoms or risks identified at this time. ROS: 12/28 01:28 Constitutional: Negative for fever, chills, and weight loss, Eyes: Negative for injury, tw4 pain, redness, and discharge, Cardiovascular: Negative for chest pain, palpitations, and edema, Respiratory: Negative for shortness of breath, cough, wheezing, and pleuritic chest pain, Abdomen/GI: Negative for abdominal pain, nausea, vomiting, diarrhea, and constipation, Back: Negative for injury and pain, MS/Extremity: Negative for injury and deformity, Skin: Negative for injury, rash, and discoloration. Neuro: Positive for headache. Exam: 01:28 Constitutional: This is a well developed, well nourished patient who is awake, alert, tw4 and in no acute distress. Head/Face: Normocephalic, atraumatic. Chest/axilla: Normal chest wall appearance and motion. Nontender with no deformity. No lesions are appreciated. Cardiovascular: Regular rate and rhythm with a normal S1 and S2. No gallops, murmurs, or rubs. Normal PMI, no JVD. No pulse deficits. Respiratory: Lungs have equal breath sounds bilaterally, clear to auscultation and percussion. No rales, rhonchi or wheezes noted. No increased work of breathing, no retractions or nasal flaring. Abdomen/GI: Soft, non-tender, with normal bowel sounds. No distension or tympany. No guarding or rebound. No evidence of tenderness throughout. Back: No spinal tenderness. No costovertebral tenderness. Full range of motion. MS/ Extremity: Pulses equal, no cyanosis. Neurovascular intact. Full, normal range of motion. Vital Signs: 12/27 22:29 BP 148 / 110; Pulse 76; Resp 16; Temp 97.4(TE); Pulse Ox 100% on R/A; Weight 83.46 kg [facility] (R); Height 5 ft. 10 in. (177.80 cm) (R); Pain 10/10; 12/28 00:00 BP 128 / 97; Pulse 63; Resp 16; Pulse Ox 100% on R/A; [facility] 01:00 BP 125 / 87; Pulse 63; Resp 16; Pulse Ox 100% on R/A; [facility] 02 22:29 Body Mass Index 26.40 (83.46 kg, 177.80 cm) [facility] MDM: 12/27 22:28 Patient medically screened. [facility] 12/28 01:28 Data reviewed: vital signs, nurses notes. Counseling: I had a detailed discussion with [facility] the patient and/or guardian regarding: the historical points, exam findings, and any diagnostic results supporting the discharge/admit diagnosis. Medication response: morphine relieved the patient's pain. Symptoms have resolved, Zofran relieved the patient's nausea. Response to treatment: and as a result, I will discharge patient. Special discussion: I discussed with the patient/guardian in detail that at this point there is no indication for admission to the hospital. It is understood, however, that if the symptoms persist or worsen the patient needs to return immediately for re-evaluation. 12/27 22:29 Order name: CBC with Diff tw4 12/27 22:29 Order name: CMP tw4 Administered Medications: 12/27 22:55 Drug: Zofran 4 mg Route: IVP; Site: right antecubital; jb4 23:25 Follow up: Response: No adverse reaction; Vomiting decreased jb4 22:55 Drug: NS 0.9% 1000 ml Route: IV; Rate: 1 bolus; Site: right antecubital; jb4 12/28 00:00 Follow up: Response: No adverse reaction; IV Status: Completed infusion; IV Intake: jb4 1000ml 00:08 Drug: morphine 4 mg {Note: Rass score 0.} Route: IVP; Site: right antecubital; 4 00:30 Follow up: Response: No adverse reaction; Pain is decreased 4 Disposition: 12/28/19 01:14 Discharged to Home. Impression: Migraine without aura, not intractable. - Condition is Stable. - Discharge Instructions: Migraine Headache. - Prescriptions for Fiorinal 50- 325-40 mg Oral Capsule - take 1 capsule by ORAL route every 4 hours As needed - not to exceed 6 capsules per day; 20 capsule. - Medication Reconciliation Form, Thank You Letter, Antibiotic Education, Prescription Opioid Use form. - Follow up: Private Physician; When: Upon discharge from the Emergency Department; Reason: Recheck today's complaints, Continuance of care. - Problem is new. - Symptoms have improved. Signatures: Dispatcher [employer] EDPiter Blanc RN RN jb4 Brent Cornelius MD MD tw4 Corrections: (The following items were deleted from the chart) 01:30 01:14 12/28/2019 01:14 Discharged to Home. Impression: Migraine without aura, not jb4 intractable. Condition is Stable. Forms are Medication Reconciliation Form, Thank You Letter, Antibiotic Education, Prescription Opioid Use. Follow up: Private Physician; When: Upon discharge from the Emergency Department; Reason: Recheck today's complaints, Continuance of care. Problem is new. Symptoms have improved. tw4
[2019-12-28 02:17] VITALS: TEMP 97.4; O2SAT 100
[2019-12-28 02:22] VITALS: BP 125/87
== END 2019-12-28 01:30 | disposition home or self-care (01) ==
LOC: ER 22:22
DX: G43.009 Migraine without aura, not intractable, without status migrainosus (principal); I10 Essential (primary) hypertension; Z88.8 Allergy status to other drugs, medicaments and biological substances; Z91.013 Allergy to seafood
CPT/HCPCS: 36415; 80053; 85025; 96361; 96374; 96375; 99284; J2405; J7030

== ENCOUNTER 2020-12-16 12:24 | Emergency (ER) | payer SELFPAY ==
--- NOTE | 2020-12-16 17:01 | RAD REPORT ---
EXAM DESCRIPTION: CT - Head Brain Wo Cont - 12/16/2020 4:44 pm CLINICAL HISTORY: paresthesia left arm Headache, drowsiness COMPARISON: No comparisons TECHNIQUE: All CT scans are performed using dose optimization technique as appropriate and may inclu de automated exposure control or mA/KV adjustment according to patient size. FINDINGS: No intracranial hemorrhage, hydrocephalus or extra-axial fluid collection.No areas of brai n edema or evidence of midline shift. The paranasal sinuses and mastoids are clear. The calvarium is intact. IMPRESSION: No acute intracranial abnormality.
[2020-12-16 17:30] LABS: Absolute Lymphocytes (CBC) 2.2 K/uL (0.7-4.9); Basophils % 0.8 % (0-1.3); Hematocrit 42.1 % (36.0-45.0); Lymphocytes % 32.1 % (15.3-44.8); MPV 8.7 fL (7.6-11.3); Protime INR 1.12; RBC Red Blood Cell Count 4.55 M/uL (3.86-4.86)
[2020-12-16 17:34] LABS: BUN Blood Urea Nitrogen 12 mg/dL (7-18); Bicarbonate 29 mmol/L (21-32); Glucose Level 78 mg/dL (74-106); Magnesium 2.5 mg/dL (1.8-2.4); Potassium 3.5 mmol/L (3.5-5.1); Sodium Level 137 mmol/L (136-145); Troponin (Emerg Dept Use Only) < 0.02 ng/mL (0.0-0.045)
--- NOTE | 2020-12-16 17:47 | RAD REPORT ---
EXAM DESCRIPTION: RAD - Chest Single View - 12/16/2020 5:41 pm CLINICAL HISTORY: paresthesia left arm Chest pain. COMPARISON: Chest Single View dated 12/15/2018; Chest Pa And Lat (2 Views) dated 09/09/2018; Chest Pa And Lat (2 Views) dated 04/23/2018; Chest Pa And Lat (2 Views) dated 11/14/2017 FINDINGS: Portable technique limits examination quality. The lungs are grossly clear. The heart is normal in size. No displaced fractures. IMPRESSION: No acute intrathoracic process suspected.
[2020-12-16 17:49] LABS: Urine Blood TRACE (NEG); Urine Glucose NEGATIVE (NEG); Urine Protein NEGATIVE (NEG); Urine Specific Gravity 1.025 (1.005-1.030)
--- NOTE | 2020-12-16 18:34 | EDPHYS ---
Physician Documentation [facility] Name: Dede Mcgee Age: 30 yrs Sex: Female : 1990 Arrival Date: 12/16/2020 Time: 12:29 Bed 26 Private MD: ED Physician Brent Cornelius HPI: 12/16 16:35 This 30 yrs old Black Female presents to ER via Ambulatory with complaints of cp Confusion, Numbness Of Arm. 16:35 The patient or guardian complains of paresthesias. cp 16:35 The complaints affect the left arm and left hand. Onset: The symptoms/episode cp began/occurred yesterday. Associated signs and symptoms: Pertinent positives: headache, dizziness. Patient reports she was at local store yesterday when she had episode of confusion. She had difficulty remembering where check out was and when she got into her car, difficulty remembering how to drive. Started having headache and tingling in left arm and hand. Historical: - Allergies: 12:43 SHELLFISH; ll1 12:43 Singulair; ll1 - PMHx: 12:43 Ovarian cyst; Hypertension; Depression; Asthma; Anxiety; ll1 - PSHx: 12:43 ovarian cyst removal; ll1 - Immunization history:: Flu vaccine is not up to date. - Social history:: Smoking status: Patient denies any tobacco usage or history of. ROS: 16:40 Constitutional: Negative for body aches, chills, fever, poor PO intake. cp 16:40 Cardiovascular: Negative for chest pain, palpitations. cp 16:40 Respiratory: Negative for cough, shortness of breath, wheezing. 16:40 Abdomen/GI: Negative for abdominal pain, nausea, vomiting, and diarrhea. 16:40 Neuro: Positive for headache, of the left hand and left arm, paresthesias, Negative for altered mental status, speech changes, syncope. 16:40 All other systems are negative. Exam: 16:50 Constitutional: The patient appears in no acute distress, alert, awake, comfortable, cp non-diaphoretic, non-toxic, well developed, well nourished. 16:50 Head/Face: Normocephalic, atraumatic. cp 16:50 Eyes: Periorbital structures: appear normal, Pupils: equal, round, and reactive to light and accomodation, Extraocular movements: intact throughout, Conjunctiva: normal, no exudate, no injection, Lids and lashes: appear normal, bilaterally. 16:50 ENT: External ear(s): are unremarkable, Nose: is normal, Mouth: Lips: moist, Oral mucosa: moist, Posterior pharynx: Airway: no evidence of obstruction, patent. 16:50 Neck: ROM/movement: is normal, is supple, without pain, no range of motions limitations, no nuchal rigidity. 16:50 Chest/axilla: Inspection: normal, Palpation: is normal, no crepitus, no tenderness. 16:50 Cardiovascular: Rate: normal, Rhythm: regular, Pulses: Pulses are 2+ in right radial artery and left radial artery. 16:50 Respiratory: the patient does not display signs of respiratory distress, Respirations: normal, no use of accessory muscles, no retractions, labored breathing, is not present. 16:50 Abdomen/GI: Inspection: abdomen appears normal, Palpation: abdomen is soft and non-tender, in all quadrants. 16:50 Back: pain, is absent, ROM is normal. 16:50 Musculoskeletal/extremity: ROM: intact in all extremities, the left hand and left arm decreased sensation. 16:50 Skin: no rash present. 16:50 Neuro: Orientation: to person, place \T\ time. Mentation: is normal, Cerebellar function: is grossly normal, Motor: moves all fours, strength is normal. 17:15 ECG was reviewed by the Attending Physician. cp Vital Signs: 12:44 BP 144 / 101; Pulse 75; Resp 16; Temp 98.5; Pulse Ox 99% ; Weight 84.82 kg; Height 5 ll1 ft. 9 in. (175.26 cm); Pain 3/10; 15:33 BP 170 / 101 LA Supine (auto/reg); Pulse 72; Pulse Ox 99% on R/A; jp3 16:00 BP 131 / 98; Pulse 70; Resp 16; Pulse Ox 100% on R/A; vg1 17:00 BP 138 / 89; Pulse 72; Resp 18; Pulse Ox 100% on R/A; vg1 18:00 BP 140 / 100; Pulse 70; Resp 16; Pulse Ox 100% on R/A; vg1 12:44 Body Mass Index 27.61 (84.82 kg, 175.26 cm) ll1 MDM: 17:00 Differential diagnosis: electrolyte abnormality, TIA, CVA, migraine. cp 18:33 Patient medically screened. 18:33 Data reviewed: vital signs, nurses notes, lab test result(s), EKG, radiologic studies, cp CT scan, plain films. 18:33 Counseling: I had a detailed discussion with the patient and/or guardian regarding: the cp historical points, exam findings, and any diagnostic results supporting the discharge/admit diagnosis, lab results, radiology results, the need for outpatient follow up, a neurologist, to return to the emergency department if symptoms worsen or persist or if there are any questions or concerns that arise at home. Response to treatment: the patient's symptoms have mildly improved after treatment, and as a result, I will discharge patient. ED course: VSS. Labs and radiology studies reviewed. CT head negative for acute findings. Will discharge to home for continued monitoring. 12/16 16:31 Order name: Basic Metabolic Panel; Complete Time: 17:53 cp 12/16 16:31 Order name: CBC with Diff; Complete Time: 17:53 cp 12/16 17:53 Interpretation: Normal except: EOSINOPHIL % 4.8. cp 12/16 16:31 Order name: Magnesium; Complete Time: 17:53 cp 12/16 17:53 Interpretation: Abnormal: MG 2.5. cp 12/16 16:31 Order name: PT-INR; Complete Time: 17:53 cp 12/16 16:31 Order name: Troponin (emerg Dept Use Only); Complete Time: 17:53 cp 12/16 17:48 Order name: Urine Dipstick--Ancillary (enter results); Complete Time: 17:53 bd 12/16 16:31 Order name: CT Head Brain wo Cont; Complete Time: 17:53 cp 12/16 17:54 Interpretation: Report reviewed. 12/16 16:31 Order name: XRAY Chest (1 view); Complete Time: 17:53 cp 12/16 16:31 Order name: EKG; Complete Time: 16:32 cp 12/16 16:31 Order name: Cardiac monitoring; Complete Time: 17:19 cp 12/16 16:31 Order name: EKG - Nurse/Tech; Complete Time: 17:19 cp 12/16 16:31 Order name: IV Saline Lock; Complete Time: 17:08 cp 12/16 17:48 Order name: Urine --Ancillary (enter results) bd 12/16 16:31 Order name: Labs collected and sent; Complete Time: 17:08 cp 12/16 16:31 Order name: O2 Per Protocol; Complete Time: 16:38 cp 12/16 16:31 Order name: O2 Sat Monitoring; Complete Time: 16:38 cp 12/16 16:31 Order name: Urine Dipstick-Ancillary (obtain specimen); Complete Time: 17:20 cp 12/16 16:31 Order name: Urine Test (obtain specimen); Complete Time: 17:20 cp EC:15 Rate is 63 beats/min. Rhythm is regular. CT interval is normal. QRS interval is normal. cp QT interval is normal. Interpreted by me. Reviewed by me. Administered Medications: 18:54 Not Given (Patient Refused): Aspirin Chewable Tablet 324 mg PO once; 81 mg tablets x 4 vg1 Point of Care Testing: Urine : 17:20 hCG Reading: Negative; Control Reading: Positive; jp3 Disposition: 19:00 Chart complete. 12/17 07:32 Co-signature as Attending Physician, Brent Cornelius MD I agree with the assessment and tw4 plan of care. Disposition: 12/16/20 18:33 Discharged to Home. Impression: Paresthesia of skin - left upper extremity, Headache. - Condition is Stable. - Discharge Instructions: General Headache Without Cause, Paresthesia, Aspirin and Your Heart. - Prescriptions for Naprosyn 500 mg Oral Tablet - take 1 tablet by ORAL route 2 times per day take with food; 20 tablet. - Medication Reconciliation Form, Thank You Letter, Antibiotic Education, Prescription Opioid Use form. - Follow up: Benson Fischer MD; When: 2 - 3 days; Reason: Recheck today's complaints. - Problem is new. - Symptoms have improved. Signatures: Dispatcher [employer] EDMS Balta Sharif PA PA cp Wadley, Terrence, MD MD tw4 Mitra Kowalski RN RN vg1 Donavon Go RN RN ll1 Corrections: (The following items were deleted from the chart) 12/16 18:55 18:33 12/16/2020 18:33 Discharged to Home. Impression: Paresthesia of skin - left upper vg1 extremity; Headache. Condition is Stable. Forms are Medication Reconciliation Form, Thank You Letter, Antibiotic Education, Prescription Opioid Use. Follow up: Benson Fischer; When: 2 - 3 days; Reason: Recheck today's complaints. Problem is new. Symptoms have improved. cp
--- NOTE | 2020-12-16 18:34 | ER ---
Nurse's Notes [facility] Name: Dede Mcgee Age: 30 yrs Sex: Female : 1990 Arrival Date: 12/16/2020 Time: 12:29 Bed 26 Private MD: Diagnosis: Paresthesia of skin-left upper extremity;Headache Presentation: 12/16 12:44 Chief complaint: Patient states: Confusion started yesterday at 1630. States she was ll1 having trouble remembering how to drive her car. Slight DIAS. Still forgetful today, but better. Dizziness, blurred vision, L arm feels numb today, so she came for eval. Mom has had mild stroke and TIA. Coronavirus screen: Client denies travel out of the [place] in the last 14 days. At this time, the client does not indicate any symptoms associated with coronavirus-19. Ebola Screen: Patient denies travel to an Ebola-affected area in the 21 days before illness onset. Initial Sepsis Screen: Does the patient meet any 2 criteria? No. Patient's initial sepsis screen is negative. Does the patient have a suspected source of infection? No. Patient's initial sepsis screen is negative. Risk Assessment: Do you want to hurt yourself or someone else? Patient reports no desire to harm self or others. Onset of symptoms was December 15, 2020. 12:44 Method Of Arrival: Ambulatory ll1 12:44 Acuity: JOSLYN 3 ll1 Triage Assessment: 12:49 General: Appears in no apparent distress. Behavior is calm, cooperative, appropriate ll1 for age. Pain: Complains of pain in head Pain currently is 3 out of 10 on a pain scale. Quality of pain is described as aching, Pain began 1 day ago. Neuro: Level of Consciousness is awake, alert, obeys commands, Oriented to person, place, time, situation, Appropriate for age Orthodontist Vice President are equal bilaterally Moves all extremities. Full function Gait is steady, Speech is normal, Facial symmetry appears normal, Pupils are Pupil Size: 3 Reports blurred vision dizziness, headache. Historical: - Allergies: 12:43 SHELLFISH; ll1 12:43 Singulair; ll1 - PMHx: 12:43 Ovarian cyst; Hypertension; Depression; Asthma; Anxiety; ll1 - PSHx: 12:43 ovarian cyst removal; ll1 - Immunization history:: Flu vaccine is not up to date. - Social history:: Smoking status: Patient denies any tobacco usage or history of. Screenin:17 Abuse screen: Denies threats or abuse. Nutritional screening: No deficits noted. vg1 Tuberculosis screening: No symptoms or risk factors identified. Fall Risk No fall in past 12 months (0 pts). No secondary diagnosis (0 pts). No IV (0 pts). Ambulatory Aid- None/Bed Rest/Nurse Assist (0 pts). Gait- Normal/Bed Rest/Wheelchair (0 pts) Mental Status- Oriented to own ability (0 pts). Total Dickens Fall Scale indicates No Risk (0-24 pts). Assessment: 16:14 General: Appears in no apparent distress. comfortable, Behavior is calm, cooperative. vg1 Pain: Denies pain. Neuro: Level of Consciousness is awake, alert, obeys commands, Oriented to person, place, time, situation, Orthodontist Vice President are equal bilaterally Moves all extremities. Speech is normal, Facial symmetry appears normal. Neuro: Reports blurred vision since Today dizziness, since today numbness in left arm since yesterday around 1630 weakness. Cardiovascular: Patient's skin is warm and dry. Respiratory: Airway is patent Respiratory effort is even, unlabored, Respiratory pattern is regular, symmetrical. GI: Patient currently denies diarrhea, nausea, vomiting. : No signs and/or symptoms were reported regarding the genitourinary system. EENT: No signs and/or symptoms were reported regarding the EENT system. Derm: Skin is intact, is healthy with good turgor. Musculoskeletal: Circulation, motion, and sensation intact. 16:17 Reassessment: Patient is currently taking amoxicillin for her tooth. Has been on vg1 medication for about a week now. 17:25 Reassessment: Patient appears in no apparent distress at this time. Patient and/or vg1 family updated on plan of care and expected duration. Pain level reassessed. Patient is alert, oriented x 3, equal unlabored respirations, skin warm/dry/pink. Patient denies pain at this time. 18:54 Reassessment: Patient appears in no apparent distress at this time. Patient and/or vg1 family updated on plan of care and expected duration. Pain level reassessed. Patient is alert, oriented x 3, equal unlabored respirations, skin warm/dry/pink. Patient states feeling better. Vital Signs: 12:44 BP 144 / 101; Pulse 75; Resp 16; Temp 98.5; Pulse Ox 99% ; Weight 84.82 kg; Height 5 ll1 ft. 9 in. (175.26 cm); Pain 3/10; 15:33 BP 170 / 101 LA Supine (auto/reg); Pulse 72; Pulse Ox 99% on R/A; jp3 16:00 BP 131 / 98; Pulse 70; Resp 16; Pulse Ox 100% on R/A; vg1 17:00 BP 138 / 89; Pulse 72; Resp 18; Pulse Ox 100% on R/A; vg1 18:00 BP 140 / 100; Pulse 70; Resp 16; Pulse Ox 100% on R/A; vg1 12:44 Body Mass Index 27.61 (84.82 kg, 175.26 cm) ll1 ED Course: 12:29 Patient arrived in ED. mr 12:43 Arm band placed on. ll1 12:48 Triage completed. ll1 15:40 Mitra Kowalski, RN is Primary Nurse. vg1 15:41 Bed in low position. Call light in reach. Warm blanket given. Verbal reassurance given. jp3 Pulse ox on. NIBP on. 15:41 Patient maintains SpO2 saturation greater than 95% on room air. jp3 16:07 Balta Sharif PA is PHCP. cp 16:07 Brent Cornelius MD is Attending Physician. cp 16:[address] via stretcher. vg1 16:45 CT Head Brain wo Cont In Process Unspecified. EDMS 17:08 Initial lab(s) drawn, by nv, sent to lab. Inserted saline lock: 20 gauge in right jp3 antecubital area, using aseptic technique. Blood collected. 17:20 Urine collected: clean catch specimen, clear, raji colored, EKG done, by ED staff, [facility] reviewed by Balta ALEJANDAR. 17:41 XRAY Chest (1 view) In Process Unspecified. EDMS 18:32 Bneson Fischer MD is Referral Physician. cp 18:55 No provider procedures requiring assistance completed. IV discontinued, intact, vg1 bleeding controlled, No redness/swelling at site. Pressure dressing applied. Administered Medications: 18:54 Not Given (Patient Refused): Aspirin Chewable Tablet 324 mg PO once; 81 mg tablets x 4 vg1 Point of Care Testing: Urine : 17:20 hCG Reading: Negative; Control Reading: Positive; jp3 Outcome: 18:33 Discharge ordered by . jeremiah 18:55 Discharged to home ambulatory. vg1 18:55 Condition: stable 18:55 Discharge instructions given to patient, Instructed on discharge instructions, follow up and referral plans. medication usage, Demonstrated understanding of instructions, follow-up care, medications, Prescriptions given X 1. 18:55 Patient left the ED. vg1 Signatures: Dispatcher [employer] EDNV GustafsonPerri Corey, Deep Haines cp jp3 Mitra Kowalski, RN RN vg1 Donavon Go RN RN ll1
[2020-12-16 18:59] VITALS: TEMP 98.5
[2020-12-16 19:03] VITALS: O2SAT 100
[2020-12-16 19:05] VITALS: BP 140/100
[2020-12-16] MEDS ORDERED: ASPIRIN 81 MG CHEWABLE TABLET ONE (19:06)
== END 2020-12-16 18:55 | disposition home or self-care (01) ==
LOC: ER 12:24
DX: R51.9 Headache, unspecified (principal); I10 Essential (primary) hypertension; Z88.8 Allergy status to other drugs, medicaments and biological substances; Z91.013 Allergy to seafood
CPT/HCPCS: 36415; 70450; 71045; 80048; 81003; 81025; 83735; 84484; 85025; 85610; 93005; 99285

== ENCOUNTER 2023-01-21 12:40 | Emergency (ER) | payer SELFPAY ==
--- OUTSIDE RECORDS SUMMARY | 2023-01-21 12:43 | XMS REPORT | Continuity of Care Document ---
:1990 Author Organization [facility] t Address [address] [place] [address] Care Team Providers Name Role Phone MAGGIE KAY Attending Clinician Unavailable REMI DHALIWAL Attending Clinician Unavailable REMI DHALIWAL Attending Clinician Unavailable Remi Dhaliwal MD Attending Clinician Visit, Adc Nurse Attending Clinician Unavailable Doctor Unassigned, Gould Attending Clinician Unavailable Eve Gore DO Attending Clinician EVE GORE Attending Clinician Unavailable Payers Payer Name Policy Type Policy Number Effective Date Expiration Date S ource Problems Condition Condition Condition Status Onset Resolution Last Treating Co mments Source Name Details Category Date Date Treatment Clinician Date Pain of Pain of Disease Active 2012-11 Univers round round 0-15 ity of ligament ligament 00:00: [place] complicati complicati 00 Me dical ng ng Branch , , antepartum antepartum High-risk High-risk Disease Active 2012-11 Overview: Univers 0-15 ICD10 ity of 00:00: Diagnosis [place] 00 Term Medical [employer] [place] Branch Utility Spotting Spotting Disease Active 2012-11 Overview: Un anais affecting affecting 0-15 ICD10 ity of , , 00:00: Diagnosis [place] antepartum antepartum 00 Term Me dical [employer] [place] Branch Utility Rubella Rubella Disease Active 2012-11 Univers immune immune 0-15 ity of 00:00: [place] 00 Medical Branch Immune to Immune to Disease Active 2012-11 Uni vers varicella varicella 0-15 ity of 00:00: [place] 00 Medical Branch Chlamydia Chlamydia Disease Active 2012-11 Overview: Univers trachomati trachomati 0-14 Treated i ty of s s 00:00: [place] infection infection 00 3. SHWETHA in M edical of lower of lower 3 weeks. Bran ch genitourin genitourin venancio sites venancio sites Insufficie Insufficie Disease Active 2012-11 U nivers nt nt 0-10 ity of 00:00: [place] care care 00 Medical Branch Allergies, Adverse Reactions, Alerts Allergy Allergy Status Severity Reaction(s) Onset Inactive Treating Comm ents Source Name Type Date Date Clinician Seafood/ Propensi Active Rash 2015-11 Univer s Fish ty to 2-03 ity of adverse 00:00: [place] reaction 00 Medical s Branch SEAFOOD/ Food Active Rash 2015-11 Univers FISH 2-03 ity of 00:00: [place] 00 Medical Branch [place] Propensi Active Shortness of 2012-11 Univers ast ty to Breath 0-10 ity of adverse 00:00: [place] reaction 00 [facility] [place] DRUG Active SOB 2012-11 Univers AST INGREDI 0-10 ity of 00:00: [place] 00 Medical Branch Social History Social Habit Start Date Stop Date Quantity Comments Source Sex Assigned At Universit y of [facility] [place] [facility] Exposure to Not sure [facility] SARS-CoV-2 [facility] (event) Branch Tobacco use and 2020-12-28 2020-12-28 Never used Universit y of exposure 00:00:00 00:00:00 [facility] [place] [facility] Alcohol intake 2020-12-28 2020-12-28 Current University of 00:00:00 00:00:00 non-drinker of [facility] alcohol Branch (finding) Smoking Status Start Date Stop Date Source Never smoker [facility] Branch Medications Ordered Filled Start Stop Current Ordering Indication Dosage Frequency Signature Comments Components Source Medication Medication Date Date Medication? Clinician (SIG) Name Name lisinopriL Yes [id number] 10mg Take 1 U nivers 10 mg 1-23 tablet by ity of tablet 00:00: mouth at [place] [address] bedtime. Medical Branch aspirin 81 Yes [id number] 81mg Take 1 U nivers mg chewable 1-23 tablet by ity of tablet 00:00: mouth [place] 00 daily. Medical Branch lisinopriL Yes [id number] 10mg Take 1 U nivers 10 mg 1-23 tablet by ity of tablet 00:00: mouth at [place] 00 bedtime. Medical Branch aspirin 81 Yes [id number] 81mg Take 1 U nivers mg chewable 1-23 tablet by ity of tablet 00:00: mouth [place] 00 daily. Medical Branch lisinopriL 0 Yes [id number] 10mg Take 1 U nivers 10 mg 1-23 tablet by ity of tablet 00:00: mouth at [place] 00 bedtime. Medical Branch aspirin 81 0 Yes [id number] 81mg Take 1 U nivers mg chewable 1-23 tablet by ity of tablet 00:00: mouth [place] 00 daily. Medical Branch lisinopriL 0 Yes [id number] 10mg Take 1 U nivers 10 mg 1-23 tablet by ity of tablet 00:00: mouth at [place] 00 bedtime. Medical Branch aspirin 81 0 Yes [id number] 81mg Take 1 U nivers mg chewable 1-23 tablet by ity of tablet 00:00: mouth [place] 00 daily. Medical Branch lisinopriL Yes [id number] 10mg Take 1 U nivers 10 mg 1-23 tablet by ity of tablet 00:00: mouth at [place] 00 bedtime. Medical Branch aspirin 81 Yes [id number] 81mg Take 1 U nivers mg chewable 1-23 tablet by ity of tablet 00:00: mouth [place] 00 daily. Medical Branch traMADOL 2015-11 Yes 50mg Take 1 Univers (ULTRAM) 50 2-03 tablet by ity of mg tablet 00:00: mouth [place] 00 every 6 Medical (six) Branch hours as needed for Pain (scale 4-6). Blaze Wise PA-C / Olivier Tapia MD BERTHA# [id number] DPS# [id number] x Lic.# [id number] NPI# [id number] traMADOL 2015-11 Yes 50mg Take 1 Univers (ULTRAM) 50 2-03 tablet by ity of mg tablet 00:00: mouth [place] 00 every 6 Medical (six) Branch hours as needed for Pain (scale 4-6). Blaze Wise PA-C / Olivier Tapia MD BERTHA# [id number] DPS# [id number] x Lic.# [id number] NPI# [id number] traMADOL 2015-11 Yes 50mg Take 1 Univers (ULTRAM) 50 2-03 tablet by ity of mg tablet 00:00: mouth [place] 00 every 6 Medical (six) Branch hours as needed for Pain (scale 4-6). Blaze Wise PA-C / Olivier Tapia MD BERTHA# [id number] DPS# [id number] x Lic.# [id number] NPI# [id number] traMADOL 2015- Yes 50mg Take 1 Univers (ULTRAM) 50 2-03 tablet by ity of mg tablet 00:00: mouth [place] 00 every 6 Medical (six) Branch hours as needed for Pain (scale 4-6). Blaze Wise PA-C / Olivier Tapia MD BERTHA# [id number] DPS# [id number] x Lic.# [id number] NPI# [id number] traMADOL 2015- Yes 50mg Take 1 Univers (ULTRAM) 50 2-03 tablet by ity of mg tablet 00:00: mouth [place] 00 every 6 Medical (six) Branch hours as needed for Pain (scale 4-6). Blaze Wise PA-C / Olivier Tapia MD BERTHA# [id number] DPS# [id number] x Lic.# [id number] NPI# [id number] Immunizations Ordered Filled Immunization Date Status Comments [facility] e Immunization Name Name Influenza Virus 2013-09-04 Completed Universit y of Vaccine (3+ yrs) 00:00:00 [facility] [place] [facility] Influenza Virus 2013-09-04 Completed Universit y of Vaccine (3+ yrs) 00:00:00 [facility] [place] [facility] Influenza Virus 2013-09-04 Completed Universit y of Vaccine (3+ yrs) 00:00:00 [facility] [place] [facility] Influenza Virus 2013-09-04 Completed Universit y of Vaccine (3+ yrs) 00:00:00 [facility] [place] [facility] Influenza Virus 2013-09-04 Completed Universit y of Vaccine (3+ yrs) 00:00:00 [facility] [place] [facility] TDAP 2011-09-04 Completed University of 00:00:00 [facility] [place] [facility] TDAP 2011-09-04 Completed University of 00:00:00 [facility] [place] [facility] TDAP 2011-09-04 Completed University of 00:00:00 [facility] [place] [facility] TDAP 2011-09-04 Completed University of 00:00:00 [facility] [place] [facility] TDAP 2011-09-04 Completed University of 00:00:00 [facility] [place] [facility] Vital Signs Vital Name Observation Time Observation Value Comments Source Systolic blood 2020-12-28 16:27:00 127 mm[Hg] Univer sity of pressure [facility] [place] [facility] Diastolic blood 2020-12-28 16:27:00 80 mm[Hg] Unive rsity of [facility] Oxygen saturation in 2020-12-28 16:27:00 100 /min [place] of Arterial blood by [facility] Pulse oximetry Branch Systolic blood 2020-12-19 01:00:00 144 mm[Hg] Univer sity of pressure [facility] [place] [facility] Diastolic blood 2020-12-19 01:00:00 94 mm[facility]Hg] [facility] Heart rate 2020-12-19 01:00:00 72 /min [facility] Respiratory rate 2020-12-19 01:00:00 17 /min General acute hospital Oxygen saturation in 2020-12-19 01:00:00 100 /min [facility] Arterial blood by [facility] Pulse oximetry Branch Body temperature 2020-12-19 00:30:00 36.22 Geri General acute hospital Body weight 2020-12-19 00:30:[address] [facility] BMI 2020-12-19 00:30:00 26.54 kg/m2 [facility] Procedures Procedure Date / Time Performing Clinician Source Performed REFERRAL- 2020-12-24 06:01:00 Doctor Unassigned, No [facility] REQUEST/RESPONSE Name [facility] CBC WITH DIFF 2020-12-19 00:58:00 Singer [facility] GLYCOSYLATED HEMOGLOBIN 2020-12-19 00:58:00 Singer [facility] (A1C) [facility] COMP. METABOLIC PANEL 2020-12-19 00:58:00 [id number] LIPID PANEL 2020-12-19 00:58:00 Singer [facility] ([id number])(TOTAL Medical Branch CHOLESTEROL, TRIGLYCERIDES, HDL) URINALYSIS 2020-12-19 00:57:00 Gore [facility] Encounters Start End Encounter Admission Attending Care Care Encounter Source Date/Time Date/Time Type Type Clinicians Facility Department ID 2023-01-01 2023-01-01 Outpatient [facility] [id number] Tomas 14:43:21 14:43:21 0206 Marlyn Carvalho 2021-01-18 2021-01-18 Outpatient Yohan KAY [facility] [id number] Univers 11:00:00 11:00:00 MAINEROSIO urbano o f [facility] [place] [facility] 2021-01-04 2021-01-04 Outpatient Yohan REMI DHALIWAL [facility] [id number] Univers 10:40:00 10:40:[address] [facility] 2020-12-28 2020-12-28 Office Isra [facility] [id number] Univers 10:05:46 14:30:27 Visit Remi Black [id number] ity [facility] [id number] [phone] Nm dical nal 092 [facility] 2020-12-28 2020-12-28 Nurse Visit, [facility] Nurse [facility] [id number] Univers 11:53:54 12:04:03 Visit Remi Dhaliwal 350.1.13 .10 ity [facility] [id number] [phone] Nm dical nal 059 [facility] 2020-12-28 2020-12-28 Outpatient REMI GALLO [facility] [id number] Univers 10:00:00 10:00:[address] [facility] 2020-12-24 2020-12-24 Orders Doctor [facility] [id number] Univers 00:00:00 00:00:00 Only Unassigned, BEE [id number] ity of [facility] 4.2.7.2.686 [place] [id number] [address] 2020-12-18 2020-12-18 Emergency Singer [facility] [id number] Univers 18:22:00 21:05:00 Eve Black [id number] i ty [facility] [id number] [facility] [id number] [facility] 084 Branch 2020-12-18 2020-12-18 Emergency X SINGER [facility] ERT [id number] Univers 18:22:00 18:22:00 EVE urbano of [facility] [place] [facility] Results Test Description Test Time Test Comments Results Result Comments Source COMPREHENSIVE METABOLIC PANEL 2023-01-02 06:03:27 Test Item Value Reference Range Interpretation Comme nts GLUCOSE (test code = 2217) 76 MG/DL 70-99 BUN (test code = 2208) 13 MG/DL 6-20 CREATININE (test code = 0.69 MG/DL 0.60-1.30 2213) eGFR (2020 CKD-EPI) (test 117 ML/MIN/1.73 >60 code = 50432) CALC BUN/CREAT (test code = 19 RATIO 6-28 2234) SODIUM (test code = 223) 142 MEQ/L 133-146 POTASSIUM (test code = 2228) 4.2 MEQ/L 3.5-5.4 CHLORIDE (test code = 2215) 106 MEQ/L 95-107 CARBON DIOXIDE (test code = 25 MEQ/L 19-31 2205) CALCIUM (test code = 2209) 9.7 MG/DL 8.5-10.5 PROTEIN, TOTAL (test code = 6.8 G/DL 6.1-8.3 2228) ALBUMIN (test code = 2201) 4.6 G/DL 3.5-5.2 CALC GLOBULIN (test code = 2.2 G/DL 1.9-3.7 2239) CALC A/G RATIO (test code = 2.1 RATIO 1.0-2.6 2233) BILIRUBIN, TOTAL (test code 0.4 MG/DL See_Comment [Automated message] The = 2206) system which ge nerated this result transmit jose reference range : <=1.2. The reference range was not used to interpr et this result as junior l/abnormal. ALKALINE PHOSPHATASE (test 51 U/L 40-114 code = 2204) AST (test code = 2218) 13 U/L 9-40 ALT (test code = 2219) 11 U/L 5-40 LIPID [id number] 06:03:27 Test Item Value Reference Range Interpretation Comments CHOLESTEROL (test 177 MG/DL <200 code = 2210) TRIGLYCERIDES (test 83 MG/DL <150 code = 2232) HDL CHOLESTEROL (test 62 MG/DL >39 code = 2220) CALC LDL CHOL (test 98 MG/DL <100 NOTE: C ALCULATED LDL code = 2237) IS BASED ON KESHA-DONOVAN METHOD WHICHINCLUDES ADJUSTABLE TRIGLYCERIDE:VL DL CHOLESTEROL RAT IO.THIS FACTOR VARIES B Y MEASURED TRIGLY CERIDE AND NON-HDLCHOL ESTEROL CONCENTRATIONS WITH INCREASED CALCU LATED LDL SEENIN HIGH ER TRIGLYCERIDE OR LOWER NON-HDL SPECIME NS. FOR MOREINFORMATION , SEE CLIENT ANNOUNCE MENT AT [email or web address] [email or web address] LDL/HDL 1.58 RATIO <3.22 (test code = 2238) HEMOGLOBIN [id number] 03:25:35 Test Item Value Reference Range Interpretation Comments HEMOGLOBIN A1c (test code 5.5 % 4.2-5.6 * [facility] has important = 38484) pathology staff changes effective 01/24. New patholo gy staff will provide uninterrupted, excellent patie nt care and clinical consultation. S ee URL: [email or web address] OTHERWISE INDIC ATED, ALL TESTING PER FOR[facility] AT [facility], [address] CLIA: [id number], CAP: [id number] 01:52:00 Test Item Value Reference Range Interpretation Comments APPEARANCE (test code = Clear Clear 1399839431) COLOR (test code = Yellow Yellow 1816655906) PH (test code = 4.8-8.0 2555420219) SP GRAVITY (test code = 1.003-1.030 7470896543) GLU U QUAL (test code = Normal Normal 3509225338) BLOOD (test code = 1+ Negative A 3812597402) KETONES (test code = Negative Negative 1386897526) PROTEIN (test code = Negative Negative 2887-8) UROBILIN (test code = 2.0 mg/dL Normal A 7742608914) BILIRUBIN (test code = Negative Negative 7849005175) NITRITE (test code = Negative Negative 8427749427) LE[place] REGINE (test code = Negative Negative 3691597187) RBC/HPF (test code = See_Comment [Autom ated message] 9203947524) The system [employer] generated this result transmit jose reference range : 0 - 3 HPF. The refe rence range was not u sed to interpret th is result as normal/abnormal . WBC/HPF (test code = See_Comment [Autom ated message] 6089498820) The system [employer] generated this result transmit jose reference range : 0 - 5 HPF. The refe rence range was not u sed to interpret th is result as normal/abnormal . BACTERIA (test code = Few Negative A 6489075199) MUCOUS (test code = Slight Negative LPF A 4214213416) SQ EPITH (test code = HPF 5978949994) Lab Interpretation (test Abnormal code = 88138-6) [facility]2020-12-19 01:28:00 Test Item Value Reference Range Interpretation Comments HGB A1C (test code = 5.0 % 4-6 4548-4) JORDAN (test code = JORDAN) %A1C (NGSP) Interpretation (ADA)4.8-5.6 ? ? Normal or (Non-Diabetic Range)5.7-6.4 ? ? Increased Risk (Pre-Diabetic)>6.5 ?Diabetes Indicated Lab Interpretation Normal (test code = 81163-9) [facility] ([id number][facility]2020-12-19 01:25:00 Test Item Value Reference Range Interpretation Comments NA (test code = 136 mmol/L 135-145 1150546711) K (test code = 3.7 mmol/L 3.5-5 6501899731) CL (test code = 102 mmol/L 98-108 7333119496) CO2 TOTAL (test code = 26 mmol/L 23-31 7200757402) AGAP (test code = 2-16 6401177296) BUN (test code = 12 mg/dL 7-23 9343157430) GLUCOSE (test code = 121 mg/dL 70-110 H 1299407946) CREATININE (test code = 0.63 mg/dL 0.5-1.04 4904793767) TOTAL BILI (test code = 0.4 mg/dL 0.1-1.9 9157182267) CALCIUM (test code = 9.0 mg/dL 8.6-10.6 0428259084) T PROTEIN (test code = 7.2 g/dL 6.3-8.2 2094498139) ALBUMIN (test code = 4.3 g/dL 3.5-5 3722212715) ALK PHOS (test code = 59 U/L 34-122 6462073931) ALTv (test code = 13 U/L 5-35 1742-6) AST(SGOT) (test code = 21 U/L 13-40 7039766470) eGFR Calculation mL/min/1.73m2 (Non-) (test code = 5561837148) eGFR Calculation mL/min/1.73m2 () (test code = 6914234544) JORDAN (test code = JORDAN) Association of Glomerular Filtration Rate (GFR) and Staging of Kidney Disease* + --+ --+ ------+| GFR (mL/min/1.73 m2) ?| With Kidney Damage ?| ?Without Kidney Damage+ --------+ --------+ +| ?>90 ?| ?Stage one ?| ? Normal ?+ ---+ ---+ -------+| ?60-89 ?| ?Stage two ?| ? Decreased GFR ? + --+ --+ ------+| ?30-59 ?| ?Stage three ?| ? Stage three ? + --+ --+ ------+| ?15-29 ?| ?Stage four ? | ? Stage four ?+ ---+ ---+ -------+| ?<15 (or dialysis) ? ?| ?Stage five ? | ? Stage five ?+ ---+ ---+ -------+ *Each stage assumes the associated GFR level has been in effect for at least three months. ?Stages 1 to 5, with or without kidney disease, indicate chronic kidney disease. Notes: Determination of stages one and two (with eGFR >59mL/min/1.73 m2) requires estimation of kidney damage for at least three months as defined by structural or functional abnormalities of the kidney, manifested by either:Pathological abnormalities or Markers of kidney damage (including abnormalities in the composition of the blood or urine or abnormalities in imaging tests). Lab Interpretation Abnormal (test code = 36810-6) [facility] ([facility]706)(TOTAL CHOLESTEROL, TRIGLYCERIDES, HDL)2020-12-19 01:25:00 Test Item Value Reference Range Interpretation Comments CHOL (test code = 180 mg/dL 120-200 9467684720) HDL (test code = 49 mg/dL >50 L 7621016995) HDLC RATIO (test code = See_Comment [Au tomated message] 1646380701) The system [employer] generated this result transmit jose reference range : <=4.5. The refe rence range was not u sed to interpret th is result as normal/abnormal . TRIG (test code = 62 mg/dL 30-170 9056562739) LDL CHOL (test code = 119 mg/dL See_Comment [Auto mated message] 03455-2) The system [employer] generated this result transmit jose reference range : <=160. The refe rence range was not u sed to interpret th is result as normal/abnormal . VLDL (test code = 12 mg/dL 5-60 6393406888) Lab Interpretation (test Abnormal code = 21327-3) [facility] WITH [id number] 01:14:00 Test Item Value Reference Range Interpretation Comments WBC (test code = See_Comment [Automated message] 6690-2) The system [employer] generated this result transmitted ref erence range: 4.30 - 1 1.10 10*3/?L. The re ference range was not u sed to interpret this result as normal/abnor mal. RBC (test code = See_Comment [Automated message] 789-8) The system [employer] generated this result transmitted ref erence range: 3.93 - 5 .25 10*6/?L. The re ference range was not u sed to interpret this result as normal/abnor mal. HGB (test code = 13.1 g/dL 11.6-15 718-7) HCT (test code = 40.1 % 35.7-45.2 4544-3) MCV (test code = 93.7 fL 80.6-95.5 787-2) MCH (test code = 30.6 pg 25.9-32.8 785-6) MCHC (test code = 32.7 g/dL 31.6-35.1 786-4) RDW-SD (test code 44.1 fL 39-49.9 = 92382-9) RDW-CV (test code 12.7 % 12-15.5 = 788-0) PLT (test code = See_Comment [Automated message] 777-3) The system [employer] generated this result transmitted ref erence range: 166 - 35 8 10*3/?L. The re ference range was not u sed to interpret this result as normal/abnor mal. MPV (test code = 10.5 fL 9.5-12.9 67686-7) NRBC/100 WBC (test See_Comment [Automat ed message] code = 4000262542) The syste m which generated this result transmitted ref erence range: 0.0 - 10 .0 /100 WBCs. The refer ence range was not u sed to interpret this result as normal/abnor mal. NRBC x10^3 (test <0.01 See_Comment [Automated message] code = 8888829018) The syste m which generated this result transmitted ref erence range: 10*3/?L. The reference range was not used to interpr et this result as normal/abnormal . GRAN MAT (NEUT) % 59.7 % (test code = 770-8) IMM GRAN % (test 0.30 % code = 2244435750) LYMPH % (test code 29.5 % = 736-9) MONO % (test code 4.9 % = 5905-5) EOS % (test code = 4.8 % 713-8) BASO % (test code 0.8 % = 706-2) GRAN MAT 4.73 10*3/uL 1.88-7.09 x10^3(ANC) (test code = 9106622951) IMM GRAN x10^3 <0.03 0-0.06 (test code = 8257799552) LYMPH x10^3 (test 2.33 10*3/uL 1.32-3.29 code = 731-0) MONO x10^3 (test 0.39 10*3/uL 0.33-0.92 code = 742-7) EOS x10^3 (test 0.38 10*3/uL 0.03-0.39 code = 711-2) BASO x10^3 (test 0.06 10*3/uL 0.01-0.07 code = 704-7) [facility]"
[2023-01-21] MEDS ORDERED: METHYLPREDNISOLONE 125 MG INJ ONE (13:01)
[2023-01-21] MEDS ORDERED: FAMOTIDINE 20 MG/2 ML VIAL IV ONE (13:01)
[2023-01-21] MEDS ORDERED: NA CHLORIDE 0.9% 1,000 ML ONE (13:01)
[2023-01-21] MEDS ORDERED: DIPHENHYDRAMINE 50 MG/ML VIAL ONE (13:01)
--- NOTE | 2023-01-21 14:06 | ER ---
Nurse's Notes [facility] Name: Dede Mcgee Age: 32 yrs Sex: Female : 1990 Arrival Date: 01/21/2023 Time: 12:42 Bed 15 Private MD: Diagnosis: Urticaria, unspecified Presentation: 01/21 12:47 Chief complaint: Patient states: "I just started working at [employer] and I think I am aa5 having an allergic reaction to something there because my face is breaking out in a rash and now I feel like my throat is tight". 12:47 Onset of symptoms was January 21, 2023. aa5 12:47 Acuity: JOSLYN 2 aa5 12:47 Method Of Arrival: Ambulatory aa5 12:47 Coronavirus screen: At this time, the client does not indicate any symptoms associated aa5 with coronavirus-19. Ebola Screen: Patient denies travel to an Ebola-affected area in the 21 days before illness onset. Initial Sepsis Screen: Does the patient meet any 2 criteria? No. Patient's initial sepsis screen is negative. Does the patient have a suspected source of infection? No. Patient's initial sepsis screen is negative. Risk Assessment: Do you want to hurt yourself or someone else? Patient reports no desire to harm self or others. Triage Assessment: 13:00 General: Appears in no apparent distress. Behavior is cooperative, appropriate for age, bp anxious. Pain: Denies pain. EENT: Reports SCRATCHY THROAT. Neuro: No deficits noted. Cardiovascular: No deficits noted. Respiratory: Reports SUBJECTIVE THROAT SWELLING Airway is patent Respiratory effort is even, unlabored. GI: No signs and/or symptoms were reported involving the gastrointestinal system. : No signs and/or symptoms were reported regarding the genitourinary system. Derm: No deficits noted. Musculoskeletal: No deficits noted. 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 - Social history:: Smoking status: Patient denies any tobacco usage or history of. Screenin:00 [facility] ED Fall Risk Assessment (Adult) History of falling in the last 3 months, bp including since admission No falls in past 3 months (0 pts). Abuse screen: Denies threats or abuse. Denies injuries from another. Nutritional screening: No deficits noted. Tuberculosis screening: No symptoms or risk factors identified. Assessment: 13:00 General: SEE TRIAGE NOTE. bp Vital Signs: 12:47 BP 133 / 94; Pulse 74; Resp 20 S; Temp 98.3(TE); Pulse Ox 100% on R/A; Weight 83.91 kg aa5 (R); Height 5 ft. 9 in. (175.26 cm) (R); 14:37 BP 127 / 89; Pulse 71; Resp 16; Pulse Ox 99% ; bp 12:47 Body Mass Index 27.32 (83.91 kg, 175.26 cm) aa5 ED Course: 12:42 Patient arrived in ED. mr 12:46 Rad[facility] Faust[facility] kb 12:46 Lucas Chen MD is Attending Physician. kb 12:47 Arm band placed on Patient placed in an exam room, on a stretcher. aa5 12:48 Mihai Iraheta, HEIDI is Primary Nurse. bp 12:57 Triage completed. aa5 13:00 Patient has correct armband on for positive identification. Bed in low position. Call bp light in reach. Side rails up X2. 13:00 Inserted saline lock: 20 gauge in right antecubital area, using aseptic technique. bp Blood collected. 14:37 No provider procedures requiring assistance completed. IV discontinued, intact, bp bleeding controlled, No redness/swelling at site. Pressure dressing applied. Administered Medications: 13:00 Drug: NS 0.9% 1000 ml Route: IV; Rate: 1000 ml; Site: right antecubital; bp 14:39 Follow up: IV Status: Completed infusion; IV Intake: 1000ml bp 13:00 Drug: SOLU-Medrol (methylPrednisoLONE) 125 mg Route: IVP; Site: right antecubital; bp 14:39 Follow up: Response: No adverse reaction bp 13:00 Drug: Pepcid (famotidine) 20 mg Route: IVP; Site: right antecubital; bp 14:39 Follow up: Response: No adverse reaction bp 13:00 Drug: Benadryl (diphenhydrAMINE) 12.5 mg Route: IVP; Site: right antecubital; bp 14:39 Follow up: Response: No adverse reaction bp Medication: 13:00 VIS not applicable for this client. bp Intake: 14:39 IV: 1000ml; Total: 1000ml. bp Outcome: 14:06 Discharge ordered by . elizabeth 14:37 Discharged to home ambulatory. bp 14:37 Condition: stable 14:37 Discharge instructions given to patient, Instructed on discharge instructions, follow up and referral plans. medication usage, Demonstrated understanding of instructions, follow-up care, medications, Prescriptions given X 2. 14:38 Patient left the ED. mm9 Signatures: Radha Faust, MELVAC JEISON-Perri Kendrick mr CruzKasia, RN RN Mhiai Allison, RN RN Pat Ellington mm9
--- NOTE | 2023-01-21 14:06 | EDPHYS ---
Physician Documentation [facility] Name: Dede Mcgee Age: 32 yrs Sex: Female : 1990 Arrival Date: 01/21/2023 Time: 12:42 Bed 15 Private MD: ED Physician Lucas Chen HPI: 01/21 14:05 This 32 yrs old Black Female presents to ER via Ambulatory with complaints of Allergic kb Reaction. 14:05 The patient presents with itching, rash, Throat tightness. Onset: The symptoms/episode kb began/occurred yesterday. Associated signs and symptoms: Pertinent positives: rash, swelling. Possible causes: The patient has no known obvious cause for the symptoms. At home the patient or guardian has treated the symptoms with Benadryl. Severity of symptoms: At their worst the symptoms were moderate in the emergency department the symptoms are unchanged. The patient has not experienced similar symptoms in the past. The patient has not recently seen a physician. 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 - Social history:: Smoking status: Patient denies any tobacco usage or history of. ROS: 14:01 Constitutional: Negative for fever, chills, and weight loss. kb 14:01 ENT: Positive for throat tightness. 14:01 Skin: Positive for rash. 14:01 All other systems are negative. Exam: 14:01 Constitutional: This is a well developed, well nourished patient who is awake, alert, kb and in no acute distress. Head/Face: Normocephalic, atraumatic. ENT: Moist Mucous membranes Cardiovascular: Regular rate and rhythm with a normal S1 and S2. No gallops, murmurs, or rubs. No pulse deficits. Respiratory: Respirations even and unlabored. No increased work of breathing. Talking in full sentences Abdomen/GI: Soft, non-tender. No distention MS/ Extremity: Pulses equal, no cyanosis. Neurovascular intact. Full, normal range of motion. Neuro: Awake and alert, GCS 15, oriented to person, place, time, and situation. Moves all extremities. Normal gait. 14:01 Skin: rash a mild rash is noted, on the face. Vital Signs: 12:47 BP 133 / 94; Pulse 74; Resp 20 S; Temp 98.3(TE); Pulse Ox 100% on R/A; Weight 83.91 kg aa5 (R); Height 5 ft. 9 in. (175.26 cm) (R); 14:37 BP 127 / 89; Pulse 71; Resp 16; Pulse Ox 99% ; bp 12:47 Body Mass Index 27.32 (83.91 kg, 175.26 cm) aa5 MDM: 12:48 Patient medically screened. kb 14:01 Differential diagnosis: anaphylaxis, angioedema, urticaria. Data reviewed: vital signs, kb nurses notes. Counseling: I had a detailed discussion with the patient and/or guardian regarding: the historical points, exam findings, and any diagnostic results supporting the discharge/admit diagnosis, the need for outpatient follow up, a family practitioner, to return to the emergency department if symptoms worsen or persist or if there are any questions or concerns that arise at home. Response to treatment: the patient's symptoms have markedly improved after treatment. 14:02 ED course: Patient is a 32-year-old female who presents for allergic reaction that kb started at work yesterday. States she restarted working at [employer] yesterday started having itching to her legs, face started breaking out to a rash and today she has been having tightness to the throat stating "it feels weird to talk." On exam lungs clear bilaterally, respirations even and unlabored, slight rash noted to right side of face. No swelling to tongue, mouth or throat appreciated. After treatment patient feeling better and states she is ready to go home. Educated on return precautions.. 01/21 12:51 Order name: IV Start; Complete Time: 12:55 kb Administered Medications: 13:00 Drug: NS 0.9% 1000 ml Route: IV; Rate: 1000 ml; Site: right antecubital; bp 14:39 Follow up: IV Status: Completed infusion; IV Intake: 1000ml bp 13:00 Drug: SOLU-Medrol (methylPrednisoLONE) 125 mg Route: IVP; Site: right antecubital; bp 14:39 Follow up: Response: No adverse reaction bp 13:00 Drug: Pepcid (famotidine) 20 mg Route: IVP; Site: right antecubital; bp 14:39 Follow up: Response: No adverse reaction bp 13:00 Drug: Benadryl (diphenhydrAMINE) 12.5 mg Route: IVP; Site: right antecubital; bp 14:39 Follow up: Response: No adverse reaction bp Disposition Summary: 01/21/23 14:06 Discharge Ordered Location: Home kb Condition: Stable kb Diagnosis - Urticaria, unspecified kb Followup: kb - With: Emergency Department - When: As needed - Reason: Worsening of condition Followup: kb - With: Private Physician - When: 2 - 3 days - Reason: Recheck today's complaints, Continuance of care, Re-evaluation by your physician Discharge Instructions: - Discharge Summary Sheet kb - Hives, [id number] kb - Allergies, Adult, [id number] kb Forms: - Medication Reconciliation Form kb - Thank You Letter kb - Antibiotic Education kb - Prescription Opioid Use kb - Work release form aa5 Prescriptions: - Pepcid 20 mg Oral Tablet - take 1 tablet by ORAL route every 12 hours for 5 days; 10 tablet; Refills: 0, kb Product Selection Permitted - Prednisone 20 mg Oral Tablet - take 1 tablet by ORAL route once daily for 5 days; 5 tablet; Refills: 0, kb Product Selection Permitted Addendum: 01/23/2023 07:13 Co-signature as Attending Physician, Lucas Chen MD I reviewed the patient's care r n provided by the Advanced Practice Provider and agree with the diagnosis and treatment plan. Signatures: Radha Faust, FIRE EXTINGUISHER SPRINKLER INSPECTOR-C FIRE EXTINGUISHER SPRINKLER INSPECTOR-Ckb Lucas Chen MD MD rn Calderon, Audri, RN RN aa5 Mihai Iraheta RN RN bp
[2023-01-21 14:50] VITALS: BP 133/94; TEMP 98.3; O2SAT 100
== END 2023-01-21 14:38 | disposition home or self-care (01) ==
LOC: ER 12:40
DX: L50.9 Urticaria, unspecified (principal)
CPT/HCPCS: 96361; 96374; 96375; 99284; J1200; J2930; J7030

== ENCOUNTER 2024-02-24 18:50 | Emergency (ER) | payer SELFPAY ==
--- OUTSIDE RECORDS SUMMARY | 2024-02-24 18:54 | XMS REPORT | Continuity of Care Document ---
Author Name Unknown Address [address] [facility] [address] [place] [address] [facility] thconnect Address [address] [facility]. [address] [place] [address] Care Team Providers [facility] Worker Name Role Phone JAREK KING Primary Care Physician Unava RADHA Bradford Attending Clinician UnavailMAGGIE Aranda Attending Clinician Unavailable REMI DHALIWAL Attending Clinician Unavail able REMI DHALIWAL Attending Clinician Unavail Remi Jacobs MD Attending Clinician Visit, [facility] Nurse Attending Clinician Unavailable Doctor Unassigned, Kim Attending Clinician U Eve Busch DO Attending Clinician [phone] EVE GORE Attending Clinician Unavailable Payers Payer Name Policy Type Policy Number Effective Date Expirati on Date Source [facility] [id number] 2022 00:00:00 Problems Condition Name Condition Details Condition Category Status Onset Date Resolution Date Last Treatment Date Treating Clinician Comments Source Pain of round ligament complicati ng , antepartum Pain of round ligament complicati ng , antepartum Disease Active 2012-11 00:00: 00 [facility] High-risk High-risk Disease Active 2012-11 00:00: 00 Overview: ICD10 Diagnosis Term [employer] [facility] Spotting affecting , antepartum Spotting affecting , antepartum Disease Active 2012-11 00:00: 00 Overview: ICD10 Diagnosis Term [employer] [facility] Rubella immune Rubella immune Disease Active 2012-11 00:00: 00 [facility] Immune to varicella Immune to varicella Disease Active 2012-11 00:00: 00 [facility] Chlamydia trachomati s infection of lower genitourin venancio sites Chlamydia trachomati s infection of lower genitourin venancio sites Disease Active 2012-11 00:00: 00 Overview: Treated 3. SHWETHA in 3 weeks. [facility] Insufficie nt care Insufficie nt care Disease Active 2012-11 00:00: 00 [facility] Allergies, Adverse Reactions, Alerts Allergy Name Allergy Type Status Severity Reaction(s) Onset Date Inactive Date Treating Clinician Comments Source Seafood/ Fish Propensi ty to adverse reaction s Active Rash 2015-11 00:00: 00 [facility] SEAFOOD/ FISH Food Active Rash 2015-11 00:00: 00 [facility] [place] Propensi ty to adverse reaction s Active Shortness of Breath 2012-11 00:00: 00 [facility] AST DRUG INGREDI Active SOB 2012-11 00:00: 00 [facility] Social History Social Habit Start Date Stop Date Quantity Comments Source Sex Assigned At [facility] Exposure to SARS-CoV-2 (event) Not sure [facility] Tobacco use and exposure 2020-12-28 00:00:00 2020-12-28 00:00:00 Never used [facility] Alcohol intake 2020-12-28 00:00:00 2020-12-28 00:00:00 Current non-drinker of alcohol (finding) [facility] Smoking Status Start Date Stop Date Source Never smoker [facility] Medications Ordered Medication Name Filled Medication Name Start Date Stop Date Current Medication? Ordering Clinician Indication Dosage Frequency Signature (SIG) Comments Components Source lisinopriL 10 mg tablet 1- 00:00: 00 Yes [id number] 10mg Take 1 tablet by mouth at bedtime. [facility] aspirin 81 mg chewable tablet 12-18 00:00: 00 Yes [id number] 81mg Take 1 tablet by mouth daily. [facility] lisinopriL 10 mg tablet 12-18 00:00: 00 Yes [id number] 10mg Take 1 tablet by mouth at bedtime. [facility] aspirin 81 mg chewable tablet 12-18 00:00: 00 Yes [id number] 81mg Take 1 tablet by mouth daily. [facility] lisinopriL 10 mg tablet 12-18 00:00: 00 Yes [id number] 10mg Take 1 tablet by mouth at bedtime. [facility] aspirin 81 mg chewable tablet 12-18 00:00: 00 Yes [id number] 81mg Take 1 tablet by mouth daily. [facility] lisinopriL 10 mg tablet 12-18 00:00: 00 Yes [id number] 10mg Take 1 tablet by mouth at bedtime. [facility] aspirin 81 mg chewable tablet 12-18 00:00: 00 Yes [id number] 81mg Take 1 tablet by mouth daily. [facility] lisinopriL 10 mg tablet 12-18 00:00: 00 Yes [id number] 10mg Take 1 tablet by mouth at bedtime. [facility] aspirin 81 mg chewable tablet 12-18 00:00: 00 Yes [id number] 81mg Take 1 tablet by mouth daily. [facility] traMADOL (ULTRAM) 50 mg tablet 2015-11 00:00: 00 Yes 50mg Take 1 tablet by mouth every 6 (six) hours as needed for Pain (scale 4-6). Blaze Wise PA-C / Olivier Tapia MD BERTHA# [id number] DPS# [id number] x Lic.# [id number] NPI# [id number] [facility] traMADOL (ULTRAM) 50 mg tablet 2015-11 00:00: 00 Yes 50mg Take 1 tablet by mouth every 6 (six) hours as needed for Pain (scale 4-6). Blaze Wise PA-C / Olivier Tapia MD BERTHA# [id number] DPS# [id number] x Lic.# [id number] NPI# [id number] [facility] traMADOL (ULTRAM) 50 mg tablet 2015-11 00:00: 00 Yes 50mg Take 1 tablet by mouth every 6 (six) hours as needed for Pain (scale 4-6). Blaze Wise PA-C / Olivier Tapia MD BERTHA# [id number] DPS# [id number] x Lic.# [id number] NPI# [id number] [facility] traMADOL (ULTRAM) 50 mg tablet 2015-11 00:00: 00 Yes 50mg Take 1 tablet by mouth every 6 (six) hours as needed for Pain (scale 4-6). Blaze Wise PA-C / Olivier Tapia MD BERTHA# [id number] DPS# [id number] x Lic.# [id number] NPI# [id number] [facility] traMADOL (ULTRAM) 50 mg tablet 2015-11 00:00: 00 Yes 50mg Take 1 tablet by mouth every 6 (six) hours as needed for Pain (scale 4-6). Blaze Wise PA-C / Olivier Tapia MD BERTHA# [id number] DPS# [id number] x Lic.# [id number] NPI# [id number] [facility] Vital Signs Vital Name Observation Time Observation Value Comments S jakob Systolic blood pressure 2020-12-28 16:27:00 127 mm[Hg] [facility] Diastolic blood pressure 2020-12-28 16:27:00 80 mm[Hg] [facility] Oxygen saturation in Arterial blood by Pulse oximetry 2020-12-28 16:27:00 100 /min [facility] Systolic blood pressure 2020-12-19 01:00:00 144 mm[Hg] [facility] Diastolic blood pressure 2020-12-19 01:00:00 94 mm[Hg] [facility] Heart rate 2020-12-19 01:00:00 72 /min [facility] Respiratory rate 2020-12-19 01:00:00 17 /min [facility] Oxygen saturation in Arterial blood by Pulse oximetry 2020-12-19 01:00:00 100 /min [facility] Body temperature 2020-12-19 00:30:00 36.22 Geri [facility] Body weight 2020-12-19 00:30:00 83.915 kg [facility] BMI 2020-12-19 00:30:00 26.54 kg/m2 [facility] Procedures Procedure Date / Time Performed Performing Clinician Source REFERRAL- REQUEST/RESPONSE 2020-12-24 06:01:00 Doctor Unassigned, Kim [facility] COMP. METABOLIC PANEL (69045) 2020-12-19 00:58:00 Singer [facility] LIPID PANEL (16831)(TOTAL CHOLESTEROL, TRIGLYCERIDES, HDL) 2020-12-19 00:58:00 Singer [facility] CBC WITH DIFF 2020-12-19 00:58:00 Eve Gore [facility] GLYCOSYLATED HEMOGLOBIN (A1C) 2020-12-19 00:58:00 Singer [facility] URINALYSIS 2020-12-19 00:57:00 Eve Gore [facility] Encounters Start Date/Time End Date/Time Encounter Type Admission Type Attending [facility] Care Facility Care Department Encounter ID Source 2024-02-12 13:23:03 2024-02-12 13:23:03 Outpatient SFA SFA [id number] Tomas Carvalho 2023-06-26 15:19:22 2023-06-26 15:19:22 Outpatient SFA SFA [id number] Tomas Carvalho 2023-04-06 09:00:00 2023-04-06 09:00:00 Outpatient RADHA MOLINA [facility] [id number] [facility] 2023-02-06 15:00:41 2023-02-06 15:00:41 Outpatient SFA SFA [id number] Tomas Carvalho 2023-01-01 14:43:21 2023-01-01 14:43:21 Outpatient SFA [facility] [id number] Tomas Carvalho 2021-01-18 11:00:00 2021-01-18 11:00:00 Outpatient MAGGIE MAHMOOD [facility] [id number] [facility] 2021-01-04 10:40:00 2021-01-04 10:40:00 Outpatient REMI GALLO HOWARD [facility] [id number] [facility] 2020-12-28 10:05:46 2020-12-28 14:30:27 Office [facility] 1..840.114 [id number] [facility] 2020-12-28 11:53:54 2020-12-28 12:04:03 Nurse Visit Visit, [facility] Nurse Remi Dhaliwal [facility] 1..840.114 [id number] [facility] 2020-12-28 10:00:00 2020-12-28 10:00:00 Outpatient REMI GALLO HOWARD [facility] [id number] [facility] 2020-12-24 00:00:00 2020-12-24 00:00:00 Orders Only Doctor Unassigned, Kim [facility] [id number] [id number] [facility] 2020-12-18 18:22:00 2020-12-18 21:05:00 Emergency Eve Gore [facility] 1..840.114 [id number] [facility] 2020-12-18 18:22:00 2020-12-18 18:22:00 Emergency X EVE GORE [facility] ERT [id number] [facility] Results Test Description Test Time Test Comments Results Result Co mments Source COMPREHENSIVE METABOLIC [id number] 08:27:50* Test Item Value Reference Range Interpretation Comme nts GLUCOSE (test code = 2217) 85 MG/DL 70-99 BUN (test code = 220) 10 MG/DL 6-20 CREATININE (test code = 2214) 0.79 MG/DL 0.60-1.30 eGFR (2020 CKD-EPI) (test code = 76768) 101 ML/MIN/1.73 >60 CALC BUN/CREAT (test code = 2235) 13 RATIO 6-28 SODIUM (test code = 223) 142 MEQ/L 133-146 POTASSIUM (test code = 2228) 5.0 MEQ/L 3.5-5.4 CHLORIDE (test code = 2215) 105 MEQ/L 95-107 CARBON DIOXIDE (test code = 2206) 26 MEQ/L 19-31 CALCIUM (test code = 2209) 9.5 MG/DL 8.5-10.5 PROTEIN, TOTAL (test code = 2229) 6.5 G/DL 6.1-8.3 ALBUMIN (test code = 2201) 4.4 G/DL 3.5-5.2 CALC GLOBULIN (test code = 2240) 2.1 G/DL 1.9-3.7 CALC A/G RATIO (test code = 2234) 2.1 RATIO 1.0-2.6 BILIRUBIN, TOTAL (test code = 2207) 0.3 MG/DL See_Comment [Automated me ssage] The system which generated this result transmitted reference range: <=1.2. The reference range was not used to interpret this result as normal/abnormal. ALKALINE PHOSPHATASE (test code = 2204) 51 U/L 40-114 AST (test code = 2218) 16 U/L 9-40 ALT (test code = 2219) 14 U/L 5-40 CBC W/AUTO DIFF WITH [id number] 02:29:45* Test Item Value Reference Range Interpretation Comme nts WBC (test code = 1001) 6.9 K/UL 3.5-11.0 RBC (test code = 1002) 4.51 M/UL 3.80-5.40 HEMOGLOBIN (test code = 1003) 14.0 G/DL 11.5-15.5 HEMATOCRIT (test code = 1004) 41.0 % 34.0-45.0 MCV (test code = 1005) 90.9 fL 80.0-99.0 MCH (test code = 1006) 31.0 PG 25.0-33.0 MCHC (test code = 1007) 34.1 G/DL 31.0-36.0 RDW (test code = 1038) 12.5 % 11.5-15.0 NEUTROPHILS (test code = 1008) 48.4 % LYMPHOCYTES (test code = 1010) 39.2 % MONOCYTES (test code = 1011) 7.2 % EOSINOPHILS (test code = 1012) 3.9 % BASOPHILS (test code = 1013) 1.0 % IMMATURE GRANULOCYTES (test code = 1036) 0.3 % NUCLEATED RBCS (test code = 1065) 0.0 /100 WBC'S See_Comment [Automated [employer]] The system which generated this result transmitted reference range: 0.0. The reference range was not used to interpret this result as normal/abnormal. PLATELET COUNT (test code = 1015) 277 K/UL 130-400 ABSOLUTE NEUTROPHILS (test code = 1066) 3.35 K/UL 1.50-7.50 ABSOLUTE LYMPHOCYTES (test code = 1067) 2.72 K/UL 1.00-4.00 ABSOLUTE MONOCYTES (test code = 1068) 0.50 K/UL 0.20-1.00 ABSOLUTE EOSINOPHILS (test code = 1040) 0.27 K/UL 0.00-0.50 ABSOLUTE BASOPHILS (test code = 1069) 0.07 K/UL 0.00-0.20 ABS IMMATURE GRANULOCYTES (test code = 1020) 0.02 K/UL 0.00-0.10 ABS NUCLEATED RBCS (test code = 79782) 0.00 K/UL 0.00-0.11 LIPID [id number] 06:03:27* Test Item Value Reference Range Interpretation Comme nts CHOLESTEROL (test code = 2210) 177 MG/DL <200 TRIGLYCERIDES (test code = 2232) 83 MG/DL <150 HDL CHOLESTEROL (test code = 2220) 62 MG/DL >39 CALC LDL CHOL (test code = 2237) 98 MG/DL <100 NOTE: CALCULATED LDL IS BASED ON KESHA-DONOVAN METHOD WHICHINCLUDES ADJUSTABLE TRIGLYCERIDE:VLDL CHOLESTEROL RATIO.THIS FACTOR VARIES BY MEASURED TRIGLYCERIDE AND NON-HDLCHOLESTEROL CONCENTRATIONS WITH INCREASED CALCULATED LDL SEENIN HIGHER TRIGLYCERIDE OR LOWER NON-HDL SPECIMENS. FOR MOREINFORMATION, SEE CLIENT ANNOUNCEMENT AT [email or web address] [email or web address] RATIO LDL/HDL (test code = 2237) 1.58 RATIO <3.22 COMPREHENSIVE METABOLIC [id number] 06:03:27* Test Item Value Reference Range Interpretation Comme nts GLUCOSE (test code = 2216) 76 MG/DL 70-99 BUN (test code = 2207) 13 MG/DL 6-20 CREATININE (test code = 2213) 0.69 MG/DL 0.60-1.30 eGFR (2020 CKD-EPI) (test code = 51354) 117 ML/MIN/1.73 >60 CALC BUN/CREAT (test code = 2235) 19 RATIO 6-28 SODIUM (test code = 223) 142 MEQ/L 133-146 POTASSIUM (test code = 2228) 4.2 MEQ/L 3.5-5.4 CHLORIDE (test code = 2215) 106 MEQ/L 95-107 CARBON DIOXIDE (test code = 220) 25 MEQ/L 19-31 CALCIUM (test code = 220) 9.7 MG/DL 8.5-10.5 PROTEIN, TOTAL (test code = 222) 6.8 G/DL 6.1-8.3 ALBUMIN (test code = 2200) 4.6 G/DL 3.5-5.2 CALC GLOBULIN (test code = 2240) 2.2 G/DL 1.9-3.7 CALC A/G RATIO (test code = 223) 2.1 RATIO 1.0-2.6 BILIRUBIN, TOTAL (test code = 2206) 0.4 MG/DL See_Comment [Automated me ssage] The system which generated this result transmitted reference range: <=1.2. The reference range was not used to interpret this result as normal/abnormal. ALKALINE PHOSPHATASE (test code = 4) 51 U/L 40-114 AST (test code = 2218) 13 U/L 9-40 ALT (test code = 2219) 11 U/L 5-40 HEMOGLOBIN [id number] 03:25:35* Test Item Value Reference Range Interpretation Comme nts HEMOGLOBIN A1c (test code = 55480) 5.5 % 4.2-5.6 [facility] has impo rtant pathology staff changes effective 01/24/2023. New pathology staff will provide uninterrupted, excellent patient care and clinical consultation. See URL: [email or web address]. UNLESS OTHERWISE INDICATED, ALL TESTING PERFORMED AT [facility] [address] [place] [address] CLIA: [id number], CAP: [id number] 01:52:00* Test Item Value Reference Range Interpretation Comme nts APPEARANCE (test code = 9275871389) Clear Clear COLOR (test code = 1750646468) Yellow Yellow PH (test code = 7913936713) 4.8-8.0 SP GRAVITY (test code = 1287832141) 1.003-1.030 GLU U QUAL (test code = 4626247204) Normal Normal BLOOD (test code = 1707041256) 1+ Negative A KETONES (test code = 3534508425) Negative Negative PROTEIN (test code = 2887-8) Negative Negative UROBILIN (test code = 1796422374) 2.0 mg/dL Normal A BILIRUBIN (test code = 4466576181) Negative Negative NITRITE (test code = 8683871834) Negative Negative LE[place] REGINE (test code = 3600587700) Negative Negative RBC/HPF (test code = 1588983285) See_Comment [Automated [employer]] The system which generated this result transmitted reference range: 0 - 3 HPF. The reference range was not used to interpret this result as normal/abnormal. WBC/HPF (test code = 0836452654) See_Comment [Automated [employer]] The system which generated this result transmitted reference range: 0 - 5 HPF. The reference range was not used to interpret this result as normal/abnormal. BACTERIA (test code = 1472675268) Few Negative A MUCOUS (test code = 7649735667) Slight Negative LPF A SQ EPITH (test code = 2737739608) HPF Lab Interpretation (test code = 69741-0) [facility]2020-12-19 01:28:00* Test Item Value Reference Range Interpretation Comme nts HGB A1C (test code = 4548-4) 5.0 % 4-6 JORDAN (test code = JORDAN) %A1C (NGSP) Interpretation (ADA)4.8-5.6 ? ? Normal or (Non-Diabetic Range)5.7-6.4 ? ? Increased Risk (Pre-Diabetic)>6.5 ?Diabetes Indicated Lab Interpretation (test code = 74230-9) [facility] (41478[facility]2020-12-19 01:25:00* Test Item Value Reference Range Interpretation Comme nts NA (test code = 5287624660) 136 mmol/L 135-145 K (test code = 3905989328) 3.7 mmol/L 3.5-5 CL (test code = 7484228779) 102 mmol/L 98-108 CO2 TOTAL (test code = 6474177461) 26 mmol/L 23-31 AGAP (test code = 0932693801) 2-16 BUN (test code = 4821224713) 12 mg/dL 7-23 GLUCOSE (test code = 3334140800) 121 mg/dL 70-110 H CREATININE (test code = 1482086428) 0.63 mg/dL 0.5-1.04 TOTAL BILI (test code = 9582849033) 0.4 mg/dL 0.1-1.1 CALCIUM (test code = 6379661185) 9.0 mg/dL 8.6-10.6 T PROTEIN (test code = 7722957498) 7.2 g/dL 6.3-8.2 ALBUMIN (test code = 5764821043) 4.3 g/dL 3.5-5 ALK PHOS (test code = 3466706143) 59 U/L 34-122 ALTv (test code = 1742-6) 13 U/L 5-35 AST(SGOT) (test code = 0508770828) 21 U/L 13-40 eGFR Calculation (Non-) (test code = 9369405662) mL/min/1.73m2 eGFR Calculation () (test code = 6164737838) mL/min/1.73m2 JORDAN (test code = JORDAN) Association of [...] or abnormalities in imaging tests). Lab Interpretation (test code = 38570-6) [facility]normal [facility] (82938)(TOTAL CHOLESTEROL, TRIGLYCERIDES, HDL)2020-12-19 01:25:00* Test Item Value Reference Range Interpretation Comme nts CHOL (test code = 3754515034) 180 mg/dL 120-200 HDL (test code = 4134566555) 49 mg/dL >50 L HDLC RATIO (test code = 7113320285) See_Comment [[employer]] The system which generated this result transmitted reference range: <=4.5. The reference range was not used to interpret this result as normal/abnormal. TRIG (test code = 8537789663) 62 mg/dL 30-170 LDL CHOL (test code = 83793-9) 119 mg/dL See_Comment [[employer]] The system which generated this result transmitted reference range: <=160. The reference range was not used to interpret this result as normal/abnormal. VLDL (test code = 6040784006) 12 mg/dL 5-60 Lab Interpretation (test code = 87817-4) Abnormal [facility] WITH [id number] 01:14:00* Test Item Value Reference Range Interpretation Comme nts WBC (test code = 6690-2) See_Comment [Automated messa ge] The system which generated this result transmitted reference range: 4.30 - 11.10 10*3/?L. The reference range was not used to interpret this result as normal/abnormal. RBC (test code = 789-8) See_Comment [Automated messa ge] The system which generated this result transmitted reference range: 3.93 - 5.25 10*6/?L. The reference range was not used to interpret this result as normal/abnormal. HGB (test code = 718-7) 13.1 g/dL 11.6-15 HCT (test code = 4544-3) 40.1 % 35.7-45.2 MCV (test code = 787-2) 93.7 fL 80.6-95.5 MCH (test code = 785-6) 30.6 pg 25.9-32.8 MCHC (test code = 786-4) 32.7 g/dL 31.6-35.1 RDW-SD (test code = 12265-6) 44.1 fL 39-49.9 RDW-CV (test code = 788-0) 12.7 % 12-15.5 PLT (test code = 777-3) See_Comment [Automated messa ge] The system which generated this result transmitted reference range: 166 - 358 10*3/?L. The reference range was not used to interpret this result as normal/abnormal. MPV (test code = 78519-0) 10.5 fL 9.5-12.9 NRBC/100 WBC (test code = 3324902270) See_Comment [Automated me ssage] The system which generated this result transmitted reference range: 0.0 - 10.0 /100 WBCs. The reference range was not used to interpret this result as normal/abnormal. NRBC x10^3 (test code = 8276792063) <0.01 See_Comment [Automated me ssage] The system which generated this result transmitted reference range: 10*3/?L. The reference range was not used to interpret this result as normal/abnormal. GRAN MAT (NEUT) % (test code = 770-8) 59.7 % IMM GRAN % (test code = 9660867922) 0.30 % LYMPH % (test code = 736-9) 29.5 % MONO % (test code = 5905-5) 4.9 % EOS % (test code = 713-8) 4.8 % BASO % (test code = 706-2) 0.8 % GRAN MAT x10^3(ANC) (test code = 3745375110) 4.73 10*3/uL 1.88-7.09 IMM GRAN x10^3 (test code = 9045282058) <0.03 0-0.06 LYMPH x10^3 (test code = 731-0) 2.33 10*3/uL 1.32-3.29 MONO x10^3 (test code = 742-7) 0.39 10*3/uL 0.33-0.92 EOS x10^3 (test code = 711-2) 0.38 10*3/uL 0.03-0.39 BASO x10^3 (test code = 704-7) 0.06 10*3/uL 0.01-0.07 [facility]"
[2024-02-24] MEDS ORDERED: ONDANSETRON 4 MG/2 ML VIAL ONE (19:18)
[2024-02-24] MEDS ORDERED: MORPHINE 4 MG/ML SYR ONE (19:19)
[2024-02-24] MEDS ORDERED: KETOROLAC 30 MG/ML INJ ONE (19:19)
[2024-02-24] MEDS ORDERED: GABAPENTIN 300 MG CAP ONE (19:19)
--- NOTE | 2024-02-24 20:26 | ER ---
Nurse's Notes [facility] Name: Dede Mcgee Age: 33 yrs Sex: Female : 1990 Arrival Date: 02/24/2024 Time: 18:50 Bed 11 Private MD: Diagnosis: Low back pain;Radiculopathy, lumbar region Presentation: 02/23 19:01 Chief complaint: Patient states: lower back pain that has been off and on since asSunday. Coronavirus screen: At this time, the client does not indicate any symptoms associated with coronavirus-19. Ebola Screen: No symptoms or risks identified at this time. Risk Assessment: Do you want to hurt yourself or someone else? Patient reports no desire to harm self or others. Onset of symptoms was February 13, 2024. 19:01 Acuity: JOSLYN 4 as6 19:01 Method Of Arrival: Ambulatory as6 19:13 Initial Sepsis Screen: Does the patient meet any 2 criteria? No. Patient's initial mb9 sepsis screen is negative. Does the patient have a suspected source of infection? No. Patient's initial sepsis screen is negative. 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 - Social history:: Smoking status: Patient denies any tobacco usage or history of. - Family history:: not pertinent. - Hospitalizations: : No recent hospitalization is reported. Screenin:13 [facility] ED Fall Risk Assessment (Adult) History of falling in the last 3 months, mb9 including since admission No falls in past 3 months (0 pts) Confusion or Disorientation No (0 pts) Intoxicated or Sedated No (0 pts) Impaired Gait No (0 pts) Mobility Assist Device Used No (0 pt) Altered Elimination No (0 pt) Score/Fall Risk Level 0 - 2 = Low Risk Oriented to surroundings, Maintained a safe environment, Educated pt \T\ family on fall prevention, incl call for assistance when getting out of bed. Abuse screen: Denies threats or abuse. Nutritional screening: No deficits noted. Tuberculosis screening: No symptoms or risk factors identified. Assessment: 19:29 General: Appears in no apparent distress. Behavior is calm, cooperative. Pain: mb9 Complains of pain in back Pain radiates to right lower back. Neuro: Barbour Agitation-Sedation Scale (RASS): 0 - Alert and Calm Level of Consciousness is awake, alert, obeys commands, Oriented to person, place, time, situation, Appropriate for age. Cardiovascular: Patient's skin is warm and dry. Respiratory: Airway is patent Respiratory effort is even, unlabored, Respiratory pattern is regular, symmetrical. GI: No signs and/or symptoms were reported involving the gastrointestinal system. : No signs and/or symptoms were reported regarding the genitourinary system. EENT: No signs and/or symptoms were reported regarding the EENT system. Derm: Skin is pink, warm \T\ dry. Musculoskeletal: Range of motion: intact in all extremities. 20:03 Reassessment: Patient and/or family updated on plan of care and expected duration. Pain mb9 level reassessed. Patient is alert, oriented x 3, equal unlabored respirations, skin warm/dry/pink. Patient states feeling better. Patient states symptoms have improved. Vital Signs: 19:01 Weight 89.36 kg (R); Height 5 ft. 10 in. (R); Pain 8/10; as6 19:04 BP 142 / 102; Pulse 69; Resp 17 S; Temp 98.1(TE); Pulse Ox 100% on R/A; as6 20:02 BP 140 / 97; Pulse 69; Resp 16; Pulse Ox 100% on R/A; mb9 19:01 Body Mass Index 28.27 (89.36 kg, 177.8 cm) as6 19:01 Pain Scale: Adult as6 ED Course: 18:55 Patient arrived in ED. im 18:59 Lucas Chen MD is Attending Physician. rn 19:03 Triage completed. as6 19:04 Arm band placed on. as6 19:12 Perri Clement, HEIDI is Primary Nurse. mb9 19:12 Placed in gown. Bed in low position. Call light in reach. Side rails up X 1. Provided mb9 Education on: press call light if needing anything. Client placed on continuous cardiac and pulse oximetry monitoring. NIBP monitoring applied. Door closed. Noise minimized. 19:15 Inserted saline lock: 20 gauge in right antecubital area, using aseptic technique. mb9 19:30 No provider procedures requiring assistance completed. mb9 20:28 IV discontinued, intact, bleeding controlled, No redness/swelling at site. Pressure mb9 dressing applied. Administered Medications: 19:20 Drug: Gabapentin PO 300 mg PO once Route: PO; mb9 20:01 Follow up: Response: No adverse reaction mb9 19:22 Drug: Ondansetron IVP 4 mg IVP once; over 2 minutes Route: IVP; Site: right antecubital;mb9 20:01 Follow up: Response: No adverse reaction mb9 19:25 Drug: Ketorolac IVP 15 mg IVP once Route: IVP; Site: right antecubital; mb9 20:01 Follow up: Response: No adverse reaction mb9 19:26 Drug: morphine IVP or IV 4 mg IVP once over 4 mins Route: IVP; Infused Over: 4 mins; mb9 Site: right antecubital; 20:01 Follow up: Response: No adverse reaction mb9 Medication: 19:13 VIS not applicable for this client. mb9 Outcome: 20:26 Discharge ordered by . rn 20:28 Discharged to home ambulatory, with family, mb9 20:28 Condition: stable 20:28 Discharge instructions given to patient, Instructed on discharge instructions, follow up and referral plans. Demonstrated understanding of instructions, follow-up care, medications, Prescriptions given X 3, 20:32 Patient left the ED. mb9 Signatures: Lucas Chen MD MD rn Slawson, Ashby RN RN as6 Perri Clement RN RN mb9 Greta Yanes
--- NOTE | 2024-02-24 20:26 | EDPHYS ---
Physician Documentation [facility] Name: Dede Mcgee Age: 33 yrs Sex: Female : 1990 Arrival Date: 02/24/2024 Time: 18:50 Bed 11 Private MD: ED Physician Lucas Chen HPI: 02/23 19:32 This 33 yrs old Black Female presents to ER via Ambulatory with complaints of Low Back rn Pain. 19:32 The patient presents with pain that is acute. The symptoms are located in the low back. rn The pain radiates to the right leg and left leg. Onset: The symptoms/episode began/occurred 3 day(s) ago. Modifying factors: The patient symptoms are alleviated by remaining still, rest, the patient symptoms are aggravated by any movement. Associated signs and symptoms: Pertinent negatives: abdominal pain, constipation, dysuria, fever, hematuria, incontinence, nausea, numbness, tingling, urinary retention, vomiting, weakness. Severity of symptoms: At their worst the symptoms were moderate, in the emergency department the symptoms are unchanged. The patient has experienced similar episodes in the past. Patient reports chronic back problems since , usually has back pain/sciatica that radiates down both legs. Recently lifted both children and rotated with pain in lower back that is alternating down left and right side. No bowel or bladder issues. No weakness. No weakness or numbness. Feels identical to previous episodes in the past. 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 - Social history:: Smoking status: Patient denies any tobacco usage or history of. - Family history:: not pertinent. - Hospitalizations: : No recent hospitalization is reported. ROS: 19:32 Constitutional: Negative for fever, chills, and weight loss, Cardiovascular: Negative rn for chest pain, palpitations, and edema, Abdomen/GI: Negative for abdominal pain, nausea, vomiting, diarrhea, and constipation, Back: Positive for low back pain : Negative for injury, bleeding, discharge, and swelling, MS/Extremity: Negative for injury and deformity, Skin: Negative for injury, rash, and discoloration, Neuro: Negative for headache, weakness, numbness, tingling, and seizure, Exam: 19:32 Constitutional: This is a well developed, well nourished patient who is awake, alert, rn and in no acute distress. Cardiovascular: Regular rate and rhythm. No pulse deficits. Abdomen/GI: Soft, nontender, no masses specifically no pulsatile masses Back: No midline tenderness Skin: Warm, dry with normal turgor. Normal color with no rashes, no lesions, and no evidence of cellulitis. MS/ Extremity: Pulses equal, no cyanosis. Neurovascular intact. Full, normal range of motion. Equal circumference. Neuro: Awake and alert, GCS 15, oriented to person, place, time, and situation. Motor strength 5/5 in all extremities. Sensory grossly intact. Cerebellar exam normal. Normal gait. Vital Signs: 19:01 Weight 89.36 kg (R); Height 5 ft. 10 in. (R); Pain 8/10; as6 19:04 BP 142 / 102; Pulse 69; Resp 17 S; Temp 98.1(TE); Pulse Ox 100% on R/A; as6 20:02 BP 140 / 97; Pulse 69; Resp 16; Pulse Ox 100% on R/A; mb9 19:01 Body Mass Index 28.27 (89.36 kg, 177.8 cm) as6 19:01 Pain Scale: Adult as6 MDM: 18:59 Patient medically screened. rn 20:24 Differential diagnosis: arthritis, strain, sciatica, Herniated disc. Data reviewed: rn vital signs, nurses notes, and as a result, I will discharge patient. Counseling: I had a detailed discussion with the patient and/or guardian regarding the historical points, exam findings, and any diagnostic results supporting the discharge/admit diagnosis, the need for outpatient follow up, to return to the emergency department if symptoms worsen or persist or if there are any questions or concerns that arise at home. Response to treatment: the patient's symptoms have markedly improved after treatment, and as a result, I will discharge patient. Special discussion: I discussed with the patient/guardian in detail that at this point there is no indication for admission to the hospital. It is understood, however, that if the symptoms persist or worsen the patient needs to return immediately for re-evaluation. 02/23 19:14 Order name: IV Start; Complete Time: 19:15 rn Administered Medications: 19:20 Drug: Gabapentin PO 300 mg PO once Route: PO; mb9 20:01 Follow up: Response: No adverse reaction mb9 19:22 Drug: Ondansetron IVP 4 mg IVP once; over 2 minutes Route: IVP; Site: right antecubital;mb9 20:01 Follow up: Response: No adverse reaction mb9 19:25 Drug: Ketorolac IVP 15 mg IVP once Route: IVP; Site: right antecubital; mb9 20:01 Follow up: Response: No adverse reaction mb9 19:26 Drug: morphine IVP or IV 4 mg IVP once over 4 mins Route: IVP; Infused Over: 4 mins; mb9 Site: right antecubital; 20:01 Follow up: Response: No adverse reaction mb9 Disposition Summary: 02/24/24 20:26 Discharge Ordered Notes: Location: Home rn Problem: new rn Symptoms: have improved rn Condition: Stable rn Diagnosis - Low back pain rn - Radiculopathy, lumbar region rn Followup: rn - With: Private Physician - When: As needed - Reason: Recheck today's complaints, Re-evaluation by your physician Discharge Instructions: - Discharge Summary Sheet rn - Acute Back Pain, Adult rn - Lumbosacral Radiculopathy rn Forms: - Medication Reconciliation Form rn - Thank You Letter rn - 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 - Prescription Opioid Use rn - Patient Portal Instructions rn - Leadership Thank You Letter rn Prescriptions: - gabapentin 100 mg Oral capsule - take 1 capsule ORAL route every 12 hours As needed; 14 capsule; Refills: 0, rn Product Selection Permitted - Cyclobenzaprine 10 mg Oral tablet - take 1 tablet ORAL route every 12 hours As needed; 10 tablet; Refills: 0, rn Product Selection Permitted - Medrol (Ruben) 4 mg Oral Tablets, Dose Pack - take 1 tablet ORAL route as directed - follow package instructions; 1 packet; rn Refills: 0, Product Selection Permitted Signatures: Lucas Chen MD MD rn Slawson, Ashby, RN RN [id number] Perri Clement RN RN mb9
[2024-02-25 03:04] VITALS: BP 140/97; TEMP 98.1; O2SAT 100
== END 2024-02-24 20:32 | disposition home or self-care (01) ==
LOC: ER 18:50
DX: M54.16 Radiculopathy, lumbar region (principal); Z88.8 Allergy status to other drugs, medicaments and biological substances; Z91.013 Allergy to seafood
CPT/HCPCS: 96374; 96375; 99284; J2405

== ENCOUNTER 2024-07-28 12:24 | Emergency (ER) | payer SELFPAY ==
--- OUTSIDE RECORDS SUMMARY | 2024-07-28 12:27 | XMS REPORT | Continuity of Care Document ---
Author Name Unknown Address [address] [facility] [address] [place] [address] [facility] thconnect Address [address] [facility] [place] [address] Care Team Providers Care Correspondence Transcriber Name Role Phone JAREK KING Primary Care Physician Unava RADHA Bradford Attending Clinician UnavailMAGGIE Aranda Attending Clinician Unavailable REMI DHALIWAL Attending Clinician Unavail able REMI DHALIWAL Attending Clinician Unavail Remi Jacobs MD Attending Clinician Visit, Adc Nurse Attending Clinician Unavailable Doctor Unassigned, [place] Attending Clinician U Eve Busch DO Attending Clinician [phone] EVE GORE Attending Clinician Unavailable Payers Payer Name Policy Type Policy Number Effective Date Expirati on Date Source [facility] [id number] 2022 00:00:00 Problems Condition Name Condition Details Condition Category Status Onset Date Resolution Date Last Treatment Date Treating Clinician Comments Source Pain of round ligament complicati ng , antepartum Pain of round ligament complicati ng , antepartum Disease Active 2012-11 00:00: 00 [facility] High-risk High-risk Disease Active 2012-11 00:00: 00 Overview: ICD10 Diagnosis Term Associate Art Director Utility [facility] Spotting affecting , antepartum Spotting affecting , antepartum Disease Active 2012-11 00:00: 00 Overview: ICD10 Diagnosis Term Associate Art Director Utility [facility] Rubella immune Rubella immune Disease Active 2012-11 00:00: 00 [facility] Immune to varicella Immune to varicella Disease Active 2012-11 00:00: 00 [facility] Chlamydia trachomati s infection of lower genitourin venancio sites Chlamydia trachomati s infection of lower genitourin venancio sites Disease Active 2012-11 00:00: 00 Overview: Treated 3. SHWETHA in 3 weeks. [facility] Insufficie nt care Insufficie nt care Disease Active 2012-11 00:00: 00 [facility] Allergies, Adverse Reactions, Alerts Allergy Name Allergy Type Status Severity Reaction(s) Onset Date Inactive Date Treating Clinician Comments Source Seafood/ Fish Propensi ty to adverse reaction s Active Rash 2015-11 00:00: 00 [facility] SEAFOOD/ FISH Food Active Rash 2015-11 00:00: 00 [facility] [place] Propensi ty to adverse reaction s Active Shortness of Breath 2012-11 00:00: 00 [facility] AST DRUG INGREDI Active SOB 2012-11 00:00: 00 [facility] Social History Social Habit Start Date Stop Date Quantity Comments Source Sex Assigned At [facility] Exposure to SARS-CoV-2 (event) Not sure [facility] Tobacco use and exposure 2020-12-28 00:00:00 2020-12-28 00:00:00 Never used [facility] Alcohol intake 2020-12-28 00:00:00 2020-12-28 00:00:00 Current non-drinker of alcohol (finding) [facility] Smoking Status Start Date Stop Date Source Never smoker [facility] Medications Ordered Medication Name Filled Medication Name Start Date Stop Date Current Medication? Ordering Clinician Indication Dosage Frequency Signature (SIG) Comments Components Source lisinopriL 10 mg tablet 1- 00:00: 00 Yes [id number] 10mg Take 1 tablet by mouth at bedtime. [facility] aspirin 81 mg chewable tablet 12-18 00:00: 00 Yes [id number] 81mg Take 1 tablet by mouth daily. [facility] traMADOL (ULTRAM) 50 mg tablet 2015-11 00:00: 00 Yes 50mg Take 1 tablet by mouth every 6 (six) hours as needed for Pain (scale 4-6). Blaze Wise PA-C / Olivier Tapia MD BERTHA# [id number] DPS# [id number] x Lic.# [id number] NPI# [id number] [facility] Vital Signs Vital Name Observation Time Observation Value Comments S ource Systolic blood pressure 2020-12-28 16:27:00 127 mm[Hg] [facility] Diastolic blood pressure 2020-12-28 16:27:00 80 mm[Hg] [facility] Oxygen saturation in Arterial blood by Pulse oximetry 2020-12-28 16:27:00 100 /min [facility] Systolic blood pressure 2020-12-19 01:00:00 144 mm[Hg] [facility] Diastolic blood pressure 2020-12-19 01:00:00 94 mm[Hg] [facility] Heart rate 2020-12-19 01:00:00 72 /min [facility] Respiratory rate 2020-12-19 01:00:00 17 /min [facility] Oxygen saturation in Arterial blood by Pulse oximetry 2020-12-19 01:00:00 100 /min [facility] Body temperature 2020-12-19 00:30:00 36.22 Geri [facility] Body weight 2020-12-19 00:30:00 83.915 kg [facility] BMI 2020-12-19 00:30:00 26.54 kg/m2 [facility] Procedures Procedure Date / Time Performed Performing Clinician Source REFERRAL- REQUEST/RESPONSE 2020-12-24 06:01:00 Doctor Unassigned, [place] [facility] GLYCOSYLATED HEMOGLOBIN (A1C) 2020-12-19 00:58:00 Eve Gore [facility] COMP. METABOLIC PANEL (92119) 2020-12-19 00:58:00 Eve Gore [facility] LIPID PANEL (12466)(TOTAL CHOLESTEROL, TRIGLYCERIDES, HDL) 2020-12-19 00:58:00 Eve Gore [facility] CBC WITH DIFF 2020-12-19 00:58:00 Eve Gore [facility] URINALYSIS 2020-12-19 00:57:00 [facility] Encounters Start Date/Time End Date/Time Encounter Type Admission Type Attending [facility] Care Department Encounter ID Source 2024-02-12 13:23:03 2024-02-12 13:23:03 Outpatient SFA SFA [id number] Tomas Cline Deven 2023-06-26 15:19:22 2023-06-26 15:19:22 Outpatient SFA SFA [id number] Tomas Cline Deven 2023-04-06 09:00:00 2023-04-06 09:00:00 Outpatient RADHA MOLINA [facility] [id number] [facility] 2023-02-06 15:00:41 2023-02-06 15:00:41 Outpatient SFA SFA [id number] Tomas Cline Deven 2023-01-01 14:43:21 2023-01-01 14:43:21 Outpatient SFA SFA [id number] Tomas Cline Deven 2021-01-18 11:00:00 2021-01-18 11:00:00 Outpatient MAGGIE MAHMOOD [facility] [id number] [facility] 2021-01-04 10:40:00 2021-01-04 10:40:00 Outpatient REMI GALLO [facility] [id number] [facility] 2020-12-28 10:05:46 2020-12-28 14:30:27 Office Visit Remi Dhaliwal [facility] [id number] [facility] 2020-12-28 11:53:54 2020-12-28 12:04:03 Nurse Visit Visit, Remi Jernigan [facility] [id number] [facility] 2020-12-28 10:00:00 2020-12-28 10:00:00 Outpatient REMI GALLO [facility] [id number] [facility] 2020-12-24 00:00:00 2020-12-24 00:00:00 Orders Only Doctor Unassigned, [place] [facility] 1..840.114 [id number] [facility] 2020-12-18 18:22:00 2020-12-18 21:05:00 Emergency Eve Gore [facility] 1..840.114 [id number] [facility] 2020-12-18 18:22:00 2020-12-18 18:22:00 Emergency X GORE, EVE [facility] ERT [id number] [facility] Results Test Description Test Time Test Comments Results Result Co mments Source COMPREHENSIVE METABOLIC [id number] 08:27:50* Test Item Value Reference Range Interpretation Comme nts GLUCOSE (test code = 2217) 85 MG/DL 70-99 BUN (test code = 2208) 10 MG/DL 6-20 CREATININE (test code = 2214) 0.79 MG/DL 0.60-1.30 eGFR (2020 CKD-EPI) (test code = 05929) 101 ML/MIN/1.73 >60 CALC BUN/CREAT (test code = 2235) 13 RATIO 6-28 SODIUM (test code = 2231) 142 MEQ/L 133-146 POTASSIUM (test code = 2228) 5.0 MEQ/L 3.5-5.4 CHLORIDE (test code = 2215) 105 MEQ/L 95-107 CARBON DIOXIDE (test code = 220) 26 MEQ/L 19-31 CALCIUM (test code = 2208) 9.5 MG/DL 8.5-10.5 PROTEIN, TOTAL (test code = 2228) 6.5 G/DL 6.1-8.3 ALBUMIN (test code = 2200) 4.4 G/DL 3.5-5.2 CALC GLOBULIN (test code = 0) 2.1 G/DL 1.9-3.7 CALC A/G RATIO (test code = 2233) 2.1 RATIO 1.0-2.6 BILIRUBIN, TOTAL (test code = 2206) 0.3 MG/DL See_Comment [Automated me ssage] The system which generated this result transmitted reference range: <=1.2. The reference range was not used to interpret this result as normal/abnormal. ALKALINE PHOSPHATASE (test code = 2203) 51 U/L 40-114 AST (test code = 2217) 16 U/L 9-40 ALT (test code = 2218) 14 U/L 5-40 CBC W/AUTO DIFF WITH [id number] 02:29:45* Test Item Value Reference Range Interpretation [...] = 1065) 0.0 /100 WBC'S See_Comment [Automated 5o9a ge] The system which generated this result [...] 0.00-0.10 ABS NUCLEATED RBCS (test code = 38464) 0.00 K/UL 0.00-0.11 COMPREHENSIVE METABOLIC [id number] 06:03:27* Test Item Value Reference Range Interpretation Comme nts GLUCOSE (test code = 2217) 76 MG/DL 70-99 BUN (test code = 2208) 13 MG/DL 6-20 CREATININE (test code = 2214) 0.69 MG/DL 0.60-1.30 eGFR (2020 CKD-EPI) (test code = 60601) 117 ML/MIN/1.73 >60 CALC BUN/CREAT (test code = 2235) 19 RATIO 6-28 SODIUM (test code = 2231) 142 MEQ/L 133-146 POTASSIUM (test code = 2228) 4.2 MEQ/L 3.5-5.4 CHLORIDE (test code = 2215) 106 MEQ/L 95-107 CARBON DIOXIDE (test code = 2206) 25 MEQ/L 19-31 CALCIUM (test code = 2209) 9.7 MG/DL 8.5-10.5 PROTEIN, TOTAL (test code = 222) 6.8 G/DL 6.1-8.3 ALBUMIN (test code = 2201) 4.6 G/DL 3.5-5.2 CALC GLOBULIN (test code = 2240) 2.2 G/DL 1.9-3.7 CALC A/G RATIO (test code = 2234) 2.1 RATIO 1.0-2.6 BILIRUBIN, TOTAL (test code = 2207) 0.4 MG/DL See_Comment [Automated me ssage] The system which generated this result transmitted reference range: <=1.2. The reference range was not used to interpret this result as normal/abnormal. ALKALINE PHOSPHATASE (test code = 2204) 51 U/L 40-114 AST (test code = 2218) 13 U/L 9-40 ALT (test code = 2219) 11 U/L 5-40 LIPID [id number] 06:03:27* Test Item Value Reference Range Interpretation [...] SPECIMENS. FOR MOREINFORMATION, SEE CLIENT ANNOUNCEMENT AT [email or web address] RISK RATIO LDL/HDL (test code = 2238) 1.58 RATIO <3.22 HEMOGLOBIN [id number] 03:25:35* Test Item Value Reference Range Interpretation Comme nts HEMOGLOBIN A1c (test code = 18152) 5.5 % 4.2-5.6 [facility] has impo rtant pathology staff changes effective 01/24/2023. New pathology staff will provide uninterrupted, excellent patient care and clinical consultation. See URL: [email or web address]. UNLESS OTHERWISE INDICATED, ALL TESTING PERFORMED AT [facility] [address] [place] [address] CLIA: [id number], CAP: [id number] 01:52:00* Test Item Value Reference Range Interpretation Comme nts APPEARANCE (test code = 8835519733) Clear Clear COLOR (test code = 7645374821) Yellow Yellow PH (test code = 3355287990) 4.8-8.0 SP GRAVITY (test code = 7379789390) 1.003-1.030 GLU U QUAL (test code = 8299993726) Normal Normal BLOOD (test code = 0332858203) 1+ Negative A KETONES (test code = 7850900548) Negative Negative PROTEIN (test code = 2887-8) Negative Negative UROBILIN (test code = 1690545919) 2.0 mg/dL Normal A BILIRUBIN (test code = 4135202376) Negative Negative NITRITE (test code = 1693522505) Negative Negative LE[place] REGINE (test code = 0032664586) Negative Negative RBC/HPF (test code = 5463461875) See_Comment [Automated 5o9a ge] The system which generated this result transmitted reference range: 0 - 3 HPF. The reference range was not used to interpret this result as normal/abnormal. WBC/HPF (test code = 3248115496) See_Comment [Automated 5o9a ge] The system which generated this result transmitted reference range: 0 - 5 HPF. The reference range was not used to interpret this result as normal/abnormal. BACTERIA (test code = 5992479804) Few Negative A MUCOUS (test code = 8413679875) Slight Negative LPF A SQ EPITH (test code = 1226418632) HPF Lab Interpretation (test code = 65577-5) [facility]2020-12-19 01:28:00* Test Item Value Reference Range Interpretation Comme nts HGB A1C (test code = 4548-4) 5.0 % 4-6 JORDAN (test code = JORDAN) %A1C (NGSP) Interpretation (ADA)4.8-5.6 ? ? Normal or (Non-Diabetic Range)5.7-6.4 ? ? Increased Risk (Pre-Diabetic)>6.5 ?Diabetes Indicated Lab Interpretation (test code = 57600-8) Normal [facility] (17999)2020-12-19 01:25:00* Test Item Value Reference Range Interpretation Comme nts NA (test code = 8446150826) 136 mmol/L 135-145 K (test code = 6240848919) 3.7 mmol/L 3.5-5 CL (test code = 7864753414) 102 mmol/L 98-108 CO2 TOTAL (test code = 4990203285) 26 mmol/L 23-31 AGAP (test code = 5371361798) 2-16 BUN (test code = 1180922701) 12 mg/dL 7-23 GLUCOSE (test code = 5737533352) 121 mg/dL 70-110 H CREATININE (test code = 7882276620) 0.63 mg/dL 0.5-1.04 TOTAL BILI (test code = 9604769578) 0.4 mg/dL 0.1-1.1 CALCIUM (test code = 6806602603) 9.0 mg/dL 8.6-10.6 T PROTEIN (test code = 6753063771) 7.2 g/dL 6.3-8.2 ALBUMIN (test code = 4895443874) 4.3 g/dL 3.5-5 ALK PHOS (test code = 2867240949) 59 U/L 34-122 ALTv (test code = 1742-6) 13 U/L 5-35 AST(SGOT) (test code = 0236986727) 21 U/L 13-40 eGFR Calculation (Non-) (test code = 4421605990) mL/min/1.73m2 eGFR Calculation () (test code = 0591717698) mL/min/1.73m2 JORDAN (test code = JORDAN) Association [...] imaging tests). Lab Interpretation (test code = 19631-1) [facility]normal [facility] (22451)(TOTAL CHOLESTEROL, TRIGLYCERIDES, HDL)2020-12-19 01:25:00* Test Item Value Reference Range Interpretation Comme nts CHOL (test code = 7548607351) 180 mg/dL 120-200 HDL (test code = 8777008487) 49 mg/dL >50 L HDLC RATIO (test code = 8448410296) See_Comment [Automated 5o9a Lendino] The system which generated this result transmitted reference range: <=4.5. The reference range was not used to interpret this result as normal/abnormal. TRIG (test code = 7082408776) 62 mg/dL 30-170 LDL CHOL (test code = 73706-5) 119 mg/dL See_Comment [Automated 5o9a ge] The system which generated this result transmitted reference range: <=160. The reference range was not used to interpret this result as normal/abnormal. VLDL (test code = 8865797878) 12 mg/dL 5-60 Lab Interpretation (test code = 80544-8) [facility]normal [facility] [id number] 01:14:00* Test Item Value Reference Range Interpretation Comme nts WBC (test code = 6690-2) See_Comment [Automated 5o9a Lendino] The system which generated this result transmitted reference range: 4.30 - 11.10 10*3/?L. The reference range was not used to interpret this result as normal/abnormal. RBC (test code = 789-8) See_Comment [Automated 5o9a Lendino] The system which generated this result transmitted [...] 32.7 g/dL 31.6-35.1 RDW-SD (test code = 32324-2) 44.1 fL 39-49.9 RDW-CV (test code = 788-0) 12.7 % 12-15.5 PLT (test code = 777-3) See_Comment [Automated messa ge] The system which generated this result transmitted reference range: 166 - 358 10*3/?L. The reference range was not used to interpret this result as normal/abnormal. MPV (test code = 64062-4) 10.5 fL 9.5-12.9 NRBC/100 WBC (test code = 2960732360) See_Comment [Automated me ssage] The system which generated this result transmitted reference range: 0.0 - 10.0 /100 WBCs. The reference range was not used to interpret this result as normal/abnormal. NRBC x10^3 (test code = 4997086900) <0.01 See_Comment [Automated me ssage] The system which generated this result transmitted reference range: 10*3/?L. The reference range was not used to interpret this result as normal/abnormal. GRAN MAT (NEUT) % (test code = 770-8) 59.7 % IMM GRAN % (test code = 2960533587) 0.30 % LYMPH % (test code = 736-9) 29.5 % MONO % (test code = 5905-5) 4.9 % EOS % (test code = 713-8) 4.8 % BASO % (test code = 706-2) 0.8 % GRAN MAT x10^3(ANC) (test code = 2044038920) 4.73 10*3/uL 1.88-7.09 IMM GRAN x10^3 (test code = 3128835233) <0.03 0-0.06 LYMPH x10^3 (test code = 731-0) 2.33 10*3/uL 1.32-3.29 MONO x10^3 (test code = 742-7) 0.39 10*3/uL 0.33-0.92 EOS x10^3 (test code = 711-2) 0.38 10*3/uL 0.03-0.39 BASO x10^3 (test code = 704-7) 0.06 10*3/uL 0.01-0.07 [facility]"
--- NOTE | 2024-07-28 12:41 | ER ---
Nurse's Notes [facility] Name: Dede Mcgee Age: 34 yrs Sex: Female : 1990 Arrival Date: 07/28/2024 Time: 12:24 Bed 14 Private MD: Diagnosis: Radiculopathy, lumbar region Presentation: 07/28 12:37 Chief complaint: Patient states: Pt states she has herniated discs in her low back. Pt tl4 states she felt it 'trigger' 2 days ago. Pt states pain got significantly worse today. Pt c/o pain in her middle back that radiates down her right leg. Coronavirus screen: At this time, the client does not indicate any symptoms associated with coronavirus-19. Ebola Screen: No symptoms or risks identified at this time. Initial Sepsis Screen: Does the patient meet any 2 criteria? No. Patient's initial sepsis screen is negative. Does the patient have a suspected source of infection? No. Patient's initial sepsis screen is negative. Risk Assessment: Do you want to hurt yourself or someone else? Patient reports no desire to harm self or others. Onset of symptoms was July 28, 2024 at 08:00. 12:37 Method Of Arrival: Ambulatory tl4 12:37 Acuity: JOSLYN 4 tl4 Triage Assessment: 12:42 General: Appears uncomfortable, Behavior is calm, cooperative. Pain: Complains of pain tl4 in back and right leg. EENT: No deficits noted. No signs and/or symptoms were reported regarding the EENT system. Neuro: Level of Consciousness is awake, alert, obeys commands, Oriented to person, place, time, situation, Moves all extremities. Full function Gait is steady, Speech is normal. Cardiovascular: Capillary refill < 3 seconds Patient's skin is warm and dry. Respiratory: Airway is patent Respiratory effort is even, unlabored, Respiratory pattern is regular, symmetrical. GI: No deficits noted. No signs and/or symptoms were reported involving the gastrointestinal system. : No deficits noted. No signs and/or symptoms were reported regarding the genitourinary system. Derm: No deficits noted. No signs and/or symptoms reported regarding the dermatologic system. Musculoskeletal: Reports pain in back and right leg. Historical: - Allergies: 12:40 montelukast; tl4 12:40 SHELLFISH; tl4 12:40 Singulair; tl4 - Home Meds: 12:40 lisinopril 20 mg oral tablet daily [Active]; amlodipine 5 mg tablet daily [Active]; tl4 albuterol sulfate 90 mcg/actuation Inhl HFA Aerosol Inhaler [Active]; - PMHx: 12:40 Anxiety; Asthma; Bronchitis; Bronchitis; Depression; Hypertension; Ovarian cyst; tl4 - PSHx: 12:40 ovarian cyst; tl4 - Immunization history:: Adult Immunizations unknown. - Infectious Disease History:: Denies. - Social history:: Smoking status: Patient denies any tobacco usage or history of. Screenin:36 [facility] ED Fall Risk Assessment (Adult) History of falling in the last 3 months, tm6 including since admission No falls in past 3 months (0 pts) Confusion or Disorientation No (0 pts) Intoxicated or Sedated No (0 pts) Impaired Gait No (0 pts) Mobility Assist Device Used No (0 pt) Altered Elimination No (0 pt) Score/Fall Risk Level 0 - 2 = Low Risk Oriented to surroundings, Maintained a safe environment, Educated pt \T\ family on fall prevention, incl call for assistance when getting out of bed. Abuse screen: Denies threats or abuse. Denies injuries from another. Nutritional screening: No deficits noted. Tuberculosis screening: No symptoms or risk factors identified. Assessment: 12:36 General: Appears in no apparent distress. uncomfortable, Behavior is calm, cooperative. tm6 Pain: Complains of pain in lumbar area Pain radiates to right leg. Neuro: Level of Consciousness is awake, alert, obeys commands, Oriented to person, place, time, situation. Cardiovascular: Patient's skin is warm and dry. Respiratory: Airway is patent Respiratory effort is even, unlabored, Respiratory pattern is regular, symmetrical. GI: No signs and/or symptoms were reported involving the gastrointestinal system. Abdomen is flat, non-distended. : No signs and/or symptoms were reported regarding the genitourinary system. EENT: No signs and/or symptoms were reported regarding the EENT system. Derm: No signs and/or symptoms reported regarding the dermatologic system. Musculoskeletal: Reports pain in back and right leg since two days ago. Pain is 8 out of 10 on a pain scale. 12:38 Pain: Pain currently is 8 out of 10 on a pain scale. Pain began 2-3 days ago. tm6 Vital Signs: 12:37 BP 139 / 91; Pulse 72; Resp 16; Temp 99.2(O); Pulse Ox 100% on R/A; Weight 84.82 kg; tl4 Height 5 ft. 10 in. ; Pain 8/10; 12:55 BP 129 / 90; Pulse 68; Resp 19; Temp 99.2; Pulse Ox 100% on R/A; Pain 8/10; tm6 12:37 Body Mass Index 26.83 (84.82 kg, 177.8 cm) tl4 12:37 Pain Scale: Adult tl4 12:55 Pain Scale: Adult tm6 ED Course: 12:26 Patient arrived in ED. mr 12:26 Marci Ziegler PA-C is PHCP. sb4 12:26 Tramaine Her MD is Attending Physician. sb4 12:36 Fazal Ray, HEIDI is Primary Nurse. tm6 12:39 Patient has correct armband on for positive identification. Bed in low position. Call tm6 light in reach. Side rails up X 1. Provided Education on: use of call ochoa. Client placed on continuous cardiac and pulse oximetry monitoring. NIBP monitoring applied. Pulse ox on. NIBP on. Door closed. Noise minimized. Warm blanket given. Pillow given. 12:39 Arm band placed on right wrist. tm6 12:40 Triage completed. tl4 12:55 No provider procedures requiring assistance completed. Patient did not have IV access tm6 during this emergency room visit. Administered Medications: 12:48 Drug: Gabapentin PO 300 mg PO once Route: PO; tm6 12:48 Follow up: Response: Medication administered at discharge. tm6 12:48 Drug: Ketorolac IM 30 mg IM once Route: IM; Site: right deltoid; tm6 12:48 Follow up: Response: Medication administered at discharge. tm6 12:48 Drug: Dexamethasone IM 10 mg IM once Route: IM; Site: left deltoid; tm6 12:48 Follow up: Response: Medication administered at discharge. tm6 Medication: 12:39 VIS not applicable for this client. tm6 Outcome: 12:41 Discharge ordered by . sb4 12:55 Discharged to home ambulatory, with family, tm6 12:55 Condition: stable 12:55 Discharge instructions given to patient, family, Instructed on discharge instructions, follow up and referral plans. medication usage, Demonstrated understanding of instructions, follow-up care, medications, Prescriptions given X 3, 12:56 Patient left the ED. tm6 Signatures: Perri Gustafson, Gregorio Reg mr ZieglerMarci, PA-C PAAmandaC sb4 Fazal Ray RN RN tm6 Alex Marrero RN RN tl4 Corrections: (The following items were deleted from the chart) 12:39 12:36 Musculoskeletal: Reports pain in back and right leg since two days ago. tm6 tm6
--- NOTE | 2024-07-28 12:41 | EDPHYS ---
Physician Documentation [facility] Name: Dede Mcgee Age: 34 yrs Sex: Female : 1990 Arrival Date: 07/28/2024 Time: 12:24 Bed 14 Private MD: ED Physician Tramaine Her HPI: 07/28 12:42 This 34 yrs old Black Female presents to ER via Ambulatory with complaints of Back Pain.sb4 12:42 patient presents with complaints of low back pain. she states that she has a history of sb4 herniated discs and overdid it at work 2 days ago lifting heavy things and has been having low back pain since. states she had a flare up like this about 6 months ago that responded well to steroids and gabapentin. she does report some tingling in her lower extremities but denies any numbness or weakness. denies any bowel or bladder incontinence. Historical: - Allergies: 12:40 montelukast; tl4 12:40 SHELLFISH; tl4 12:40 Singulair; tl4 - Home Meds: 12:40 lisinopril 20 mg oral tablet daily [Active]; amlodipine 5 mg tablet daily [Active]; tl4 albuterol sulfate 90 mcg/actuation Inhl HFA Aerosol Inhaler [Active]; - PMHx: 12:40 Anxiety; Asthma; Bronchitis; Bronchitis; Depression; Hypertension; Ovarian cyst; tl4 - PSHx: 12:40 ovarian cyst; tl4 - Immunization history:: Adult Immunizations unknown. - Infectious Disease History:: Denies. - Social history:: Smoking status: Patient denies any tobacco usage or history of. ROS: 12:42 Constitutional: Negative for fever, chills, and weight loss, sb4 12:42 Back: Positive for pain at rest, pain with movement, radiated pain, of the lumbar area, left low back and right low back, 12:42 All other systems are negative, Exam: 12:42 Head/Face: Normocephalic, atraumatic. Eyes: Extra-ocular motions intact. Periorbital sb4 areas with no swelling, redness, or edema. ENT: Mucous membranes moist. Cardiovascular: Regular rate and rhythm with a normal S1 and S2. Respiratory: Lungs have equal breath sounds bilaterally, clear to auscultation and percussion. No rales, rhonchi or wheezes noted. No increased work of breathing, no retractions or nasal flaring. Skin: Warm, dry with normal turgor. Normal color with no rashes, no lesions, and no evidence of cellulitis. 12:42 Constitutional: The patient appears alert, awake, uncomfortable, 12:42 Back: pain, that is moderate, ROM is painful, normal spinal alignment noted, CVA tenderness, is absent, muscle spasm, is not present, Straight leg raises: pain bilaterally, 12:44 Neuro: Motor: moves all fours, Sensation: is normal, seizure activity, is not displayed sb4 by the patient, Vital Signs: 12:37 BP 139 / 91; Pulse 72; Resp 16; Temp 99.2(O); Pulse Ox 100% on R/A; Weight 84.82 kg; tl4 Height 5 ft. 10 in. ; Pain 8/10; 12:55 BP 129 / 90; Pulse 68; Resp 19; Temp 99.2; Pulse Ox 100% on R/A; Pain 8/10; tm6 12:37 Body Mass Index 26.83 (84.82 kg, 177.8 cm) tl4 12:37 Pain Scale: Adult tl4 12:55 Pain Scale: Adult tm6 MDM: 12:27 Patient medically screened. sb4 12:42 Data reviewed: vital signs, nurses notes, and as a result, I will discharge patient. sb4 Counseling: I had a detailed discussion with the patient and/or guardian regarding the historical points, exam findings, and any diagnostic results supporting the discharge/admit diagnosis, lab results, radiology results, to return to the emergency department if symptoms worsen or persist or if there are any questions or concerns that arise at home. 12:45 Test considered but Not performed: X-ray: not indicated, no acute injury. sb4 Administered Medications: 12:48 Drug: Gabapentin PO 300 mg PO once Route: PO; tm6 12:48 Follow up: Response: Medication administered at discharge. tm6 12:48 Drug: Ketorolac IM 30 mg IM once Route: IM; Site: right deltoid; tm6 12:48 Follow up: Response: Medication administered at discharge. tm6 12:48 Drug: Dexamethasone IM 10 mg IM once Route: IM; Site: left deltoid; tm6 12:48 Follow up: Response: Medication administered at discharge. tm6 Disposition: 14:13 Co-signature as Attending Physician, Tramaine Her MD I reviewed the patient's care rt provided by the Advanced Practice Provider and agree with the diagnosis and treatment plan. Disposition Summary: 07/28/24 12:41 Discharge Ordered Notes: Location: Home sb4 Problem: an acute exacerbation sb4 Symptoms: have improved sb4 Condition: Stable sb4 Diagnosis - Radiculopathy, lumbar region sb4 Followup: sb4 - With: Private Physician - When: As needed - Reason: Recheck today's complaints, Re-evaluation by your physician Discharge Instructions: - Discharge Summary Sheet sb4 - Lumbosacral Radiculopathy sb4 Forms: - Patient Portal Instructions sb4 - Leadership Thank You Letter sb4 - Work release form tm6 Prescriptions: - gabapentin 100 mg Oral capsule - take 1 capsule ORAL route every 8 hours; 15 capsule; Refills: 0, Product sb4 Selection Permitted - Cyclobenzaprine 10 mg Oral Tablet - take 1 tablet ORAL route every 8 hours As needed; 30 tablet; Refills: 0, sb4 Product Selection Permitted - Prednisone 20 mg Oral Tablet - take 1 tablet ORAL route every 12 hours for 5 days; 10 tablet; Refills: 0, sb4 Product Selection Permitted Signatures: Marci Ziegler PA-C PAKevin sb4 Tramaine Her MD MD rt Fazal Ray RN RN tm6 Alex Marrero RN RN tl4
[2024-07-28] MEDS ORDERED: GABAPENTIN 300 MG CAP ONE (12:42)
[2024-07-28] MEDS ORDERED: KETOROLAC 30 MG/ML INJ ONE (12:42)
[2024-07-28] MEDS ORDERED: dexAMETHasone 10 MG/ML VIAL ONE (12:42)
[2024-07-28 13:01] VITALS: TEMP 99.2; O2SAT 100
[2024-07-28 13:03] VITALS: BP 129/90
== END 2024-07-28 12:56 | disposition home or self-care (01) ==
LOC: ER 12:24
DX: M54.16 Radiculopathy, lumbar region (principal)
CPT/HCPCS: 96372; 99284

== ENCOUNTER 2024-10-03 21:09 | Emergency (ER) | payer SELFPAY ==
--- OUTSIDE RECORDS SUMMARY | 2024-10-03 21:13 | XMS REPORT | Continuity of Care Document ---
Author Name Unknown Address [address] [facility] [address] [place] [address] [facility] thconnect Address [address] [facility]. [address] [place] [address] Care Team Providers Care Utility Locate Technician Name Role Phone Sierra Menendez Primary Care Physician RADHA CYR Attending Clinician UnavailMAGGIE Aranda Attending Clinician Unavailable REMI DHALIWAL Attending Clinician Unavail able REMI DHALIWAL Attending Clinician Unavail Remi Jacobs MD Attending Clinician [phone] Visit, Adc Nurse Attending Clinician Unavailable Doctor Unassigned, Odem Attending Clinician U Eve Busch DO Attending Clinician EVE GORE Attending Clinician Unavailable Payers Payer Name Policy Type Policy Number Effective Date Expirati on Date Source [facility] [id number] 2022 00:00:00 Problems Condition Name Condition Details Condition Category Status Onset Date Resolution Date Last Treatment Date Treating Clinician Comments Source Pain of round ligament complicati ng , antepartum Pain of round ligament complicati ng , antepartum Disease Active 2012-11 00:00: 00 [facility] High-risk High-risk Disease Active 2012-11 00:00: 00 Overview: ICD10 Diagnosis 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 Medical Device Utility [facility] Spotting affecting , antepartum Spotting affecting , antepartum Disease Active 2012-11 015 00:00: 00 Overview: ICD10 Diagnosis 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 SHWETHA in 3 weeks. [facility] Insufficie nt care Insufficie nt care Disease Active 2012-11 0 00:00: 00 [facility] Allergies, Adverse Reactions, Alerts Allergy Name Allergy Type Status Severity Reaction(s) Onset Date Inactive Date Treating Clinician Comments Source [place] - Intraven ous Propensi ty to adverse reaction to drug Active 5-16 00:00: 00 Tomas Carvalho Singulai r - Oral Propensi ty to adverse reaction to drug Active 3-11 00:00: 00 Tomas Carvalho Seafood/ Fish Propensi ty to adverse reaction s Active Rash 2015-11 2 00:00: 00 [facility] SEAFOOD/ FISH Food Active Rash 2015-11 2-03 00:00: 00 [facility] Singulai r Propensi ty to adverse reaction to drug Inactiv e 6-21 00:00: 00 Tomas Carvalho [place] ast Propensi ty to adverse reaction s Active Shortness of Breath 2012-11 0 00:00: 00 [facility] [place] AST DRUG INGREDI Active SOB 2012-11 0 00:00: 00 [facility] Social History Social Habit Start Date Stop Date Quantity Comments Source Sex Assigned At [facility] Exposure to SARS-CoV-2 (event) Not sure [facility] Tobacco use and exposure 2020-12-28 00:00:00 2020-12-28 00:00:00 Never used [facility] Alcohol intake 2020-12-28 00:00:00 2020-12-28 00:00:00 Current non-drinker of alcohol (finding) [facility] Smoking Status Start Date Stop Date Source Never smoker [facility] Medications Ordered Medication Name Filled Medication Name Start Date Stop Date Current Medication? Ordering Clinician Indication Dosage Frequency Signature (SIG) Comments Components Source lisinopril 20 mg tablet 08-25 00:00: 00 Yes mg Tomas Carvalho amlodipine 5 mg tablet 08-25 00:00: 00 Yes mg Tomas Carvalho lisinopril 20 mg tablet 11-30 00:00: 00 Yes mg Tomas Carvalho amlodipine 5 mg tablet 11-30 00:00: 00 Yes mg Tomas Carvalho TAKE 1 TABLET DAILY. 2022-11 00:00: 00 Yes 20 Tomas Carvalho TAKE 1 TABLET DAILY. 2022-11 00:00: 00 Yes 5 Tomas Carvalho TAKE 1 TABLET TWICE DAILY WITH FOOD. 2022-11 00:00: 00 03-17 00:00 :00 No [id number] Tomas Carvalho TAKE ONE (1) TABLET(S) BY MOUTH ONCE A DAY. 04-12 00:00: 00 Yes Tomas Carvalho TAKE 1 TABLET DAILY. 04-12 00:00: 00 03-17 00:00 :00 No 20 Tomas Carvalho TAKE 1 TABLET EVERY 8 HOURS NEEDED. 3-14 00:00: 00 03-17 00:00 :00 No 800 Tomas Carvalho TAKE ONE (1) TABLET(S) BY MOUTH EVERY TWELVE HOURS FOR 5 DAYS. 01-21 00:00: 00 Yes Tomas Carvalho TAKE ONE (1) TABLET(S) BY MOUTH ONCE A DAY FOR 5 DAYS. 01-21 00:00: 00 Yes Tomas Carvalho TAKE 10 ML EVERY 6 TO 8 HOURS NEEDED FOR COUGH -24 00:00: 00 03-17 00:00 :00 No [id number] Tomas Carvalho TAKE 1 TABLET DAILY. 12-19 00:00: 00 03-17 00:00 :00 No 50 Tomas Carvalho INHALE 2 PUFFS EVERY 4-6 HOURS NEEDED. 12-19 00:00: 00 03-17 00:00 :00 No [id number] Tomas Carvalho INHALE 1 PUFF TWICE DAILY. RINSE MOUTH AFTER USE. 12-19 00:00: 00 03-17 00:00 :00 No 110 Tomas Carvalho Dose Unknown 12-08 00:00: 00 Yes Tomas Carvalho TAKE ONE (1) TABLET(S) BY MOUTH DAILY. 12-08 00:00: 00 Yes Tomas Carvalho TAKE 1 TABLET DAILY. 12-08 00:00: 00 03-17 00:00 :00 No 20 Tomas Carvalho TAKE ONE (1) TABLET(S) BY MOUTH DAILY. 08-17 00:00: 00 Yes Tomas Carvalho TAKE ONE (1) TABLET(S) BY MOUTH DAILY. 08-17 00:00: 00 Yes Tomas Carvalho TAKE ONE (1) TABLET(S) BY MOUTH DAILY. 08-03 00:00: 00 Yes Tomas Carvalho Dose Unknown 8-16 00:00: 00 Yes Tomas Carvalho Dose Unknown 8-16 00:00: 00 Yes Tomas Carvalho TAKE 1 TABLET BY MOUTH DAILY 23 00:00: 00 Yes Tomas Carvalho TAKE 1 TABLET BY MOUTH DAILY 6 00:00: 00 Yes Tomas Carvalho TAKE 1 TABLET BY MOUTH DAILY 6 00:00: 00 Yes Tomas Carvalho amlodipine 5 mg tablet 5-30 00:00: 00 Yes 1mg Tomas Carvalho lisinopril 20 mg tablet 5-30 00:00: 00 Yes 1mg Tomas Carvalho Dose Unknown 5-16 00:00: 00 Yes Tomas F Deven Dose Unknown 0 5-16 00:00: 00 Yes Tomas F Deven Dose Unknown 0 3-11 00:00: 00 Yes Tomas F Deven Dose Unknown 0 3-11 00:00: 00 Yes Tomas F Deven Dose Unknown 3-11 00:00: 00 Yes Tomas F Deven Dose Unknown 02-03 00:00: 00 Yes Tomas Carvalho Dose Unknown 02-03 00:00: 00 Yes Tomas Carvalho amlodipine 5 mg tablet 12-23 00:00: 00 Yes 1mg Tomas Carvalho ProAir HFA 90 mcg/actuati on aerosol inhaler 2020-11 00:00: 00 Yes 2mcg/ac tuation Tomas Carvalho lisinopril 20 mg tablet 2020-11 00:00: 00 Yes 1mg Tomas Carvalho fluticasone propionate 50 mcg/actuati on nasal spray,suspe nsion 2020-11 00:00: 00 Yes 2mcg/ac tuation Tomas Carvalho benzonatate 100 mg capsule 2020-11 00:00: 00 Yes 1mg Tomas Carvalho lisinopril 10 mg tablet 07-16 00:00: 00 Yes 1mg Tomas Carvalho lisinopril 10 mg tablet 07-14 00:00: 00 Yes 1mg Tomas Carvalho lisinopril 10 mg tablet 5 00:00: 00 Yes 1mg Tomas Carvalho lisinopril 10 mg tablet 01-06 00:00: 00 Yes 1mg Tomas Carvalho lisinopriL 10 mg tablet 12-18 00:00: 00 Yes [id number] 10mg Take 1 tablet by mouth at bedtime. [facility] aspirin 81 mg chewable tablet 12-18 00:00: 00 Yes [id number] 81mg Take 1 tablet by mouth daily. [facility] lisinopril 10 mg tablet 08-21 00:00: 00 Yes 1mg Tomas Carvalho traMADOL (ULTRAM) 50 mg tablet 2015-11 00:00: 00 Yes 50mg Take 1 tablet by mouth every 6 (six) hours as needed for Pain (scale 4-6). Blaze Wise PA-C / Olivier Tapia MD BERTHA# [id number] DPS# [id number] x Lic.# [id number] NPI# [id number] [facility] Zithromax 500 mg tablet 05-19 00:00: 00 Yes 2mg Tomas Carvalho Mirena 20 mcg/24 hours (7 yrs) 52 mg intrauterin e device 05-16 00:00: 00 Yes 1(7 yrs) 52 mg Tomas Carvalho Cipro 500 mg tablet 05-16 00:00: 00 Yes 1mg Tomas Carvalho Vital Signs Vital Name Observation Time Observation Value Comments S jakob Systolic blood pressure 2020-12-28 16:27:00 127 mm[Hg] [facility] Diastolic blood pressure 2020-12-28 16:27:00 80 mm[Hg] [facility] Oxygen saturation in Arterial blood by Pulse oximetry 2020-12-28 16:27:00 100 /min [facility] Systolic blood pressure 2020-12-19 01:00:00 144 mm[Hg] [facility] Diastolic blood pressure 2020-12-19 01:00:00 94 mm[Hg] [facility] Heart rate 2020-12-19 01:00:00 72 /min [facility] Respiratory rate 2020-12-19 01:00:00 17 /min [facility] Oxygen saturation in Arterial blood by Pulse oximetry 2020-12-19 01:00:00 100 /min [facility] Body temperature 2020-12-19 00:30:00 36.22 Geri [facility] Body weight 2020-12-19 00:30:00 83.915 kg [facility] BMI 2020-12-19 00:30:00 26.54 kg/m2 [facility] BP Diastolic 2023-11-04 12:59:00 Ron Carvalho Weight Measured 2023-11-04 12:59:00 184.40 pounds Tomas Carvalho Height Measured 2023-11-04 12:59:00 70.00 inches Tomas Carvalho Body Temperature 2023-11-04 12:59:00 Tomas Carvalho Heart Rate 2023-11-04 12:59:00 Gaylevalente Carvalho Respiratory Rate 2023-11-04 12:59:00 Tomas Carvalho BP Systolic 2023-11-04 12:59:00 Step hen F Deven BP Systolic 2023-06-26 15:27:00 122 mm[Hg] Step hen F Deven BP Diastolic 2023-06-26 15:27:00 85 mm[Hg] Ron phen F Deven Weight Measured 2023-06-26 15:27:00 184.40 pounds Tomas F Deven Height Measured 2023-06-26 15:27:00 70.00 inches Tomas F Deven Body Temperature 2023-06-26 15:27:00 98.20 degrees Tomas F Deven Heart Rate 2023-06-26 15:27:00 74.00 /min Gayle en F Deven Respiratory Rate 2023-06-26 15:27:00 19.00 /min Tomas F Deven BP Systolic 2023-04-12 09:53:00 133 mm[Hg] Step hen F Deven BP Diastolic 2023-04-12 09:53:00 86 mm[Hg] Ron phen F Deven Weight Measured 2023-04-12 09:53:00 Tomas F Deven Height Measured 2023-04-12 09:53:00 Tomas F Deven Body Temperature 2023-04-12 09:53:00 Tomas F Deven Heart Rate 2023-04-12 09:53:00 Gayle en F Deven Respiratory Rate 2023-04-12 09:53:00 Tomas F Deven BP Systolic 2023-02-06 15:09:00 115 mm[Hg] Step hen F Deven BP Diastolic 2023-02-06 15:09:00 78 mm[Hg] Ron phen F Deven Weight Measured 2023-02-06 15:09:00 186.40 pounds Tomas F Deven Height Measured 2023-02-06 15:09:00 70.00 inches Tomas F Deven Body Temperature 2023-02-06 15:09:00 98.30 degrees Tomas F Deven Heart Rate 2023-02-06 15:09:00 67.00 /min Gayle en F Devne Respiratory Rate 2023-02-06 15:09:00 18.00 /min Tomas F Deven BP Systolic 2022-12-08 15:08:00 120 mm[Hg] Step hen F Deven BP Diastolic 2022-12-08 15:08:00 73 mm[Hg] Ron phen F Deven Weight Measured 2022-12-08 15:08:00 Tomas F Deven Height Measured 2022-12-08 15:08:00 Tomas F Deven Body Temperature 2022-12-08 15:08:00 Tomas F Deven Heart Rate 2022-12-08 15:08:00 Gayle en F Deven Respiratory Rate 2022-12-08 15:08:00 Tomas F Deven BP Systolic 2022-08-17 14:03:00 182 mm[Hg] Step hen F Deven BP Diastolic 2022-08-17 14:03:00 42 mm[Hg] Ron phen F Deven Weight Measured 2022-08-17 14:03:00 Tomas F Deven Height Measured 2022-08-17 14:03:00 Tomas F Deven Body Temperature 2022-08-17 14:03:00 Tomas F Deven Heart Rate 2022-08-17 14:03:00 Gayle en F Deven Respiratory Rate 2022-08-17 14:03:00 Tomas F Deven BP Systolic 2022-08-03 13:59:00 125 mm[Hg] Step hen F Deven BP Diastolic 2022-08-03 13:59:00 85 mm[Hg] Ron phen F Deven Weight Measured 2022-08-03 13:59:00 175.20 pounds Tomas F Deven Height Measured 2022-08-03 13:59:00 70.00 inches Tomas F Deven Body Temperature 2022-08-03 13:59:00 98.30 degrees Tomas F Deven Heart Rate 2022-08-03 13:59:00 63.00 /min Gayle en F Deven Respiratory Rate 2022-08-03 13:59:00 18.00 /min Tomas F Deven BP Systolic 2022-05-18 15:16:00 Step hen F Deven BP Diastolic 2022-05-18 15:16:00 Ron phen F Deven Weight Measured 2022-05-18 15:16:00 180.80 pounds Tomas F Deven Height Measured 2022-05-18 15:16:00 70.00 inches Tomas F Deven Body Temperature 2022-05-18 15:16:00 Tomas F Deven Heart Rate 2022-05-18 15:16:00 Gayle en F Deven Respiratory Rate 2022-05-18 15:16:00 Tomas F Deven BP Systolic 2022-05-06 09:54:00 123 mm[Hg] Step hen Marlyn Carvalho BP Diastolic 2022-05-06 09:54:00 83 mm[Hg] Ron phen Marlyn Carvalho Weight Measured 2022-05-06 09:54:00 180.80 pounds Tomas Carvalho Height Measured 2022-05-06 09:54:00 70.00 inches Tomas Carvalho Body Temperature 2022-05-06 09:54:00 98.10 degrees Tomas Carvalho Heart Rate 2022-05-06 09:54:00 63.00 /min Gayle en F Deven Respiratory Rate 2022-05-06 09:54:00 Tomas Marlyn Carvalho BP Systolic 2021-07-16 14:49:00 144 mm[Hg] Jason hen F Deven BP Diastolic 2021-07-16 14:49:00 96 mm[Hg] Ron phen Marlyn Carvalho Weight Measured 2021-07-16 14:49:00 177.40 pounds Tomas Carvalho Height Measured 2021-07-16 14:49:00 70.00 inches Tomas Carvalho Body Temperature 2021-07-16 14:49:00 98.40 degrees Tomas Carvalho Heart Rate 2021-07-16 14:49:00 66.00 /min Gayle en F Deven Respiratory Rate 2021-07-16 14:49:00 17.00 /min Tomas Carvalho Procedures Procedure Date / Time Performed Performing Clinician Source REFERRAL- REQUEST/RESPONSE 2020-12-24 06:01:00 Doctor Unassigned, Odem [facility] COMP. METABOLIC PANEL ([id number]) 2020-12-19 00:58:00 [facility] LIPID PANEL ([id number])(TOTAL CHOLESTEROL, TRIGLYCERIDES, HDL) 2020-12-19 00:58:00 [facility] CBC WITH DIFF 2020-12-19 00:58:00 Eve Gore [facility] GLYCOSYLATED HEMOGLOBIN (A1C) 2020-12-19 00:58:00 [facility] URINALYSIS 2020-12-19 00:57:00 Eve Gore [facility] Encounters Start Date/Time End Date/Time Encounter Type Admission Type Attending Clinicians Care Facility Care Department Encounter ID Source 2024-09-05 00:00:00 2024-09-05 00:00:00 Outpatient Visit [facility] [id number] Tomas Carvalho 2024-08-25 00:00:00 2024-08-25 00:00:00 Outpatient Visit [facility] [id number] Tomas Carvalho 2024-02-12 13:23:03 2024-02-12 13:23:03 Outpatient [facility] [id number] Tomas Cline [place] 2023-06-26 15:19:22 2023-06-26 15:19:22 Outpatient [facility] [id number] Tomas Cline [place] 2023-04-06 09:00:00 2023-04-06 09:00:00 Outpatient RADHA MOLINA [facility] [id number] [facility] 2023-02-06 15:00:41 2023-02-06 15:00:41 Outpatient [facility] [id number] Tomas Cline [place] 2023-01-01 14:43:21 2023-01-01 14:43:21 Outpatient [facility] [id number] Tomas Cline [place] 2021-01-18 11:00:00 2021-01-18 11:00:00 Outpatient MAGGIE [facility]MOOD [facility] [id number] [facility] 2021-01-04 10:40:00 2021-01-04 10:40:00 Outpatient REMI GALLO [facility] [id number] [facility] 2020-12-28 10:05:46 2020-12-28 14:30:27 Office Visit Remi Dhaliwal RUST Sofia Ashley [facility] [id number] [facility] 2020-12-28 11:53:54 2020-12-28 12:04:03 [facility] 1..[id number] [facility] 2020-12-28 10:00:00 2020-12-28 10:00:00 Outpatient REMI GALLO [facility] [id number] [facility] 2020-12-24 00:00:00 2020-12-24 00:00:00 Orders Only Doctor Unassigned, Odem [facility] 1..[id number] [facility] 2020-12-18 18:22:00 2020-12-18 21:05:00 Emergency Eve Gore [facility] 1..[id number] [facility] 2020-12-18 18:22:00 2020-12-18 18:22:00 Emergency EVE KNIGHT [facility] [id number] [facility] Results Test Description Test Time Test Comments Results Result Co mments Source COMPREHENSIVE METABOLIC [id number] 08:27:50* Test Item Value Reference Range Interpretation Comme nts GLUCOSE (test code = 2217) 85 MG/DL 70-99 BUN (test code = 2208) 10 MG/DL 6-20 CREATININE (test code = 2214) 0.79 MG/DL 0.60-1.30 eGFR (2020 CKD-EPI) (test code = 27617) 101 ML/MIN/1.73 >60 CALC BUN/CREAT (test code [...] G/DL 3.5-5.2 CALC GLOBULIN (test code = 2239) 2.1 G/DL 1.9-3.7 CALC A/G RATIO (test [...] 14 U/L 5-40 CBC W/AUTO DIFF WITH [id number] 02:29:45* Test Item Value Reference Range Interpretation [...] = 1065) 0.0 /100 WBC'S See_Comment [Automated messa ge] The system which [...] 0.00-0.10 ABS NUCLEATED RBCS (test code = 34379) 0.00 K/UL 0.00-0.11 CBC W/AUTO [id number] 00:00:00* Test Item Value Reference Range Interpretation Comme nts WBC (test code = 1001) 6.9 K/UL RBC (test code = 1002) 4.51 M/UL HEMOGLOBIN (test code = 1003) 14.0 G/DL HEMATOCRIT (test code = 1004) 41.0 % MCV (test code = 1005) 90.9 fL MCH (test code = 1006) 31.0 PG MCHC (test code = 1007) 34.1 G/DL RDW (test code = 1038) 12.5 % NEUTROPHILS (test code = 1008) 48.4 % LYMPHOCYTES (test code = 1010) 39.2 % MONOCYTES (test code = 1011) 7.2 % EOSINOPHILS (test code = 1012) 3.9 % BASOPHILS (test code = 1013) 1.0 % IMMATURE GRANULOCYTES (test code = 1036) 0.3 % NUCLEATED RBCS (test code = 1065) 0.0 /100WBC'S PLATELET COUNT (test code = 1015) 277 K/UL ABSOLUTE NEUTROPHILS (test c ode = 1066) 3.35 K/UL ABSOLUTE LYMPHOCYTES (test c ode = 1067) 2.72 K/UL ABSOLUTE MONOCYTES (test cod e = 1068) 0.50 K/UL ABSOLUTE EOSINOPHILS (test c ode = 1040) 0.27 K/UL ABSOLUTE BASOPHILS (test cod e = 1069) 0.07 K/UL ABS IMMATURE GRANULOCYTES (t est code = 1020) 0.02 K/UL ABS NUCLEATED RBCS (test cod e = 95269) 0.00 K/UL Tomas CarvalhoCOMPREHENSIVE METABOLIC [id number] 00:00:00* Test Item Value Reference Range Interpretation Comme nts GLUCOSE (test code = 2217) 85 MG/DL BUN (test code = 2208) 10 MG/DL CREATININE (test code = 2214) 0.79 MG/DL eGFR (2020 CKD-EPI) (test code = 93459) 101 ML/MIN/1.73 CALC BUN/CREAT (test code = 2235) 13 RATIO SODIUM (test code = 2231) 142 MEQ/L POTASSIUM (test code = 2228) 5.0 MEQ/L CHLORIDE (test code = 2215) 105 MEQ/L CARBON DIOXIDE (test code = 2206) 26 MEQ/L CALCIUM (test code = 2209) 9.5 MG/DL PROTEIN, TOTAL (test code = 2229) 6.5 G/DL ALBUMIN (test code = 2201) 4.4 G/DL CALC GLOBULIN (test code = 2240) 2.1 G/DL CALC A/G RATIO (test code = 2234) 2.1 RATIO BILIRUBIN, TOTAL (test code = 2207) 0.3 MG/DL ALKALINE PHOSPHATASE (test code = 2204) 51 U/L AST (test code = 2218) 16 U/L ALT (test code = 2219) 14 U/L Tomas CarvalhoRICHARDH, THIRD [id number] 00:00:00* Test Item Value Reference Range Interpretation Comme nts TSH, THIRD GENERATION (test code = 2821) 2.960 UIU/ML Tomas CarvalhoCBC W/AUTO [id number] 00:00:00* Test Item Value Reference Range Interpretation Comme nts WBC (test code = 1001) 6.9 K/UL RBC (test code = 1002) 4.51 M/UL HEMOGLOBIN (test code = 1003) 14.0 G/DL HEMATOCRIT (test code = 1004) 41.0 % MCV (test code = 1005) 90.9 fL MCH (test code = 1006) 31.0 PG MCHC (test code = 1007) 34.1 G/DL RDW (test code = 1038) 12.5 % NEUTROPHILS (test code = 1008) 48.4 % LYMPHOCYTES (test code = 1010) 39.2 % MONOCYTES (test code = 1011) 7.2 % EOSINOPHILS (test code = 1012) 3.9 % BASOPHILS (test code = 1013) 1.0 % IMMATURE GRANULOCYTES (test code = 1036) 0.3 % NUCLEATED RBCS (test code = 1065) 0.0 /100WBC'S PLATELET COUNT (test code = 1015) 277 K/UL ABSOLUTE NEUTROPHILS (test c ode = 1066) 3.35 K/UL ABSOLUTE LYMPHOCYTES (test c ode = 1067) 2.72 K/UL ABSOLUTE MONOCYTES (test cod e = 1068) 0.50 K/UL ABSOLUTE EOSINOPHILS (test c ode = 1040) 0.27 K/UL ABSOLUTE BASOPHILS (test cod e = 1069) 0.07 K/UL ABS IMMATURE GRANULOCYTES (t est code = 1020) 0.02 K/UL ABS NUCLEATED RBCS (test cod e = 44597) 0.00 K/UL Tomas F DevenCOMPREHENSIVE METABOLIC [id number] 00:00:00* Test Item Value Reference Range Interpretation Comme nts GLUCOSE (test code = 2217) 85 MG/DL BUN (test code = 2208) 10 MG/DL CREATININE (test code = 2214) 0.79 MG/DL eGFR (2020 CKD-EPI) (test code = 89551) 101 ML/MIN/1.73 CALC BUN/CREAT (test code = 2235) 13 RATIO SODIUM (test code = 2231) 142 MEQ/L POTASSIUM (test code = 2228) 5.0 MEQ/L CHLORIDE (test code = 2215) 105 MEQ/L CARBON DIOXIDE (test code = 2206) 26 MEQ/L CALCIUM (test code = 2209) 9.5 MG/DL PROTEIN, TOTAL (test code = 2229) 6.5 G/DL ALBUMIN (test code = 2201) 4.4 G/DL CALC GLOBULIN (test code = 2240) 2.1 G/DL CALC A/G RATIO (test code = 2234) 2.1 RATIO BILIRUBIN, TOTAL (test code = 2207) 0.3 MG/DL ALKALINE PHOSPHATASE (test code = 2203) 51 U/L AST (test code = 2218) 16 U/L ALT (test code = 221) 14 U/L Tomas Perez, THIRD [id number] 00:00:00* Test Item Value Reference Range Interpretation Comme nts TSH, THIRD GENERATION (test code = 2821) 2.960 UIU/ML Tomas CarvalhoCOMPREHENSIVE METABOLIC [id number] 06:03:27* Test Item Value Reference Range Interpretation Comme nts GLUCOSE (test code = 7) 76 MG/DL 70-99 BUN (test code = 2207) 13 MG/DL 6-20 CREATININE (test code = 221) 0.69 MG/DL 0.60-1.30 eGFR (2020 CKD-EPI) (test code = 19532) 117 ML/MIN/1.73 >60 CALC BUN/CREAT (test code = 2235) 19 RATIO 6-28 SODIUM (test code = 2230) 142 MEQ/L 133-146 POTASSIUM (test code = 2228) 4.2 MEQ/L 3.5-5.4 CHLORIDE (test code = 5) 106 MEQ/L 95-107 CARBON DIOXIDE (test code = 2206) 25 MEQ/L 19-31 CALCIUM (test code = 2208) 9.7 MG/DL 8.5-10.5 PROTEIN, TOTAL (test code = 222) 6.8 G/DL 6.1-8.3 ALBUMIN (test code = 2200) 4.6 G/DL 3.5-5.2 CALC GLOBULIN (test code = 2240) 2.2 G/DL 1.9-3.7 CALC A/G RATIO (test code = 223) 2.1 RATIO 1.0-2.6 BILIRUBIN, TOTAL (test code = 220) 0.4 MG/DL See_Comment [Automated me ssage] The system which generated this result transmitted reference range: <=1.2. The reference range was not used to interpret this result as normal/abnormal. ALKALINE PHOSPHATASE (test code = 4) 51 U/L 40-114 AST (test code = 2218) 13 U/L 9-40 ALT (test code = 2219) 11 U/L 5-40 LIPID [id number] 06:03:27* Test Item Value Reference Range Interpretation [...] SPECIMENS. FOR MOREINFORMATION, SEE CLIENT ANNOUNCEMENT AT [email or web address] RISK RATIO LDL/HDL (test code = 2238) 1.58 RATIO <3.22 HEMOGLOBIN [id number] 03:25:35* Test Item Value Reference Range Interpretation Comme nts HEMOGLOBIN A1c (test code = 37733) 5.5 % 4.2-5.6 [facility] has impo rtant pathology staff changes effective 01/24/2023. New pathology staff will provide uninterrupted, excellent patient care and clinical consultation. See URL: [email or web address]. UNLESS OTHERWISE INDICATED, ALL TESTING PERFORMED AT [facility] [address] [place] [address] CLIA: [id number], CAP: [id number] COMPREHENSIVE METABOLIC [id number] 00:00:00* Test Item Value Reference Range Interpretation Comme nts GLUCOSE (test code = 2217) 76 MG/DL BUN (test code = 2208) 13 MG/DL CREATININE (test code = 2214) 0.69 MG/DL eGFR (2020 CKD-EPI) (test code = 63559) 117 ML/MIN/1.73 CALC BUN/CREAT (test code = 2235) 19 RATIO SODIUM (test code = 2231) 142 MEQ/L POTASSIUM (test code = 2228) 4.2 MEQ/L CHLORIDE (test code = 2215) 106 MEQ/L CARBON DIOXIDE (test code = 2206) 25 MEQ/L CALCIUM (test code = 2209) 9.7 MG/DL PROTEIN, TOTAL (test code = 2229) 6.8 G/DL ALBUMIN (test code = 2201) 4.6 G/DL CALC GLOBULIN (test code = 2240) 2.2 G/DL CALC A/G RATIO (test code = 2234) 2.1 RATIO BILIRUBIN, TOTAL (test code = 2207) 0.4 MG/DL ALKALINE PHOSPHATASE (test code = 2204) 51 U/L AST (test code = 2218) 13 U/L ALT (test code = 2219) 11 U/L Tomas CarvalhoLIPID [id number] 00:00:00* Test Item Value Reference Range Interpretation Comme nts CHOLESTEROL (test code = 2210) 177 MG/DL TRIGLYCERIDES (test code = 2232) 83 MG/DL HDL CHOLESTEROL (test code = 2220) 62 MG/DL CALC LDL CHOL (test code = 2237) 98 MG/DL RISK RATIO LDL/HDL (test cod e = 2238) 1.58 RATIO Tomas CarvalhoHEMOGLOBIN [id number] 00:00:00* Test Item Value Reference Range Interpretation Comme evette HEMOGLOBIN A1c (test code = 55398) 5.5 % Tomas CarvalhoCOMPREHENSIVE METABOLIC [id number] 00:00:00* Test Item Value Reference Range Interpretation Comme nts GLUCOSE (test code = 2217) 76 MG/DL BUN (test code = 2208) 13 MG/DL CREATININE (test code = 2214) 0.69 MG/DL eGFR (2020 CKD-EPI) (test code = 16726) 117 ML/MIN/1.73 CALC BUN/CREAT (test code = 2235) 19 RATIO SODIUM (test code = 2231) 142 MEQ/L POTASSIUM (test code = 2228) 4.2 MEQ/L CHLORIDE (test code = 2215) 106 MEQ/L CARBON DIOXIDE (test code = 2206) 25 MEQ/L CALCIUM (test code = 2209) 9.7 MG/DL PROTEIN, TOTAL (test code = 2229) 6.8 G/DL ALBUMIN (test code = 2201) 4.6 G/DL CALC GLOBULIN (test code = 2240) 2.2 G/DL CALC A/G RATIO (test code = 2234) 2.1 RATIO BILIRUBIN, TOTAL (test code = 2207) 0.4 MG/DL ALKALINE PHOSPHATASE (test code = 2204) 51 U/L AST (test code = 2218) 13 U/L ALT (test code = 2219) 11 U/L Tomas CarvalhoLIPID [id number] 00:00:00* Test Item Value Reference Range Interpretation Comme nts CHOLESTEROL (test code = 2210) 177 MG/DL TRIGLYCERIDES (test code = 2232) 83 MG/DL HDL CHOLESTEROL (test code = 2220) 62 MG/DL CALC LDL CHOL (test code = 2237) 98 MG/DL RISK RATIO LDL/HDL (test cod e = 2238) 1.58 RATIO Tomas CarvalhoHEMOGLOBIN [id number] 00:00:00* Test Item Value Reference Range Interpretation Comme nts HEMOGLOBIN A1c (test code = 97501) 5.5 % Tomas [id number] 01:52:00* Test Item Value Reference Range Interpretation Comme nts APPEARANCE (test code = 3761025838) Clear Clear COLOR (test code = 5889580457) Yellow Yellow PH (test code = 0467920782) 4.8-8.0 SP GRAVITY (test code = 4307195164) 1.003-1.030 GLU U QUAL (test code = 0918489004) Normal Normal BLOOD (test code = 5664202348) 1+ Negative A KETONES (test code = 7129611909) Negative Negative PROTEIN (test code = 2887-8) Negative Negative UROBILIN (test code = 5303089223) 2.0 mg/dL Normal A BILIRUBIN (test code = 7265273179) Negative Negative NITRITE (test code = 8730873966) Negative Negative [place]INE (test code = 0492971687) Negative Negative RBC/HPF (test code = 9423019505) See_Comment [Automated [employer]arnedIta ge] The system which generated this result transmitted reference range: 0 - 3 HPF. The reference range was not used to interpret this result as normal/abnormal. WBC/HPF (test code = 5964229737) See_Comment [Automated [employer] ge] The system which generated this result transmitted reference range: 0 - 5 HPF. The reference range was not used to interpret this result as normal/abnormal. BACTERIA (test code = 3777330473) Few Negative A MUCOUS (test code = 4372049297) Slight Negative LPF A SQ EPITH (test code = 2699187652) HPF Lab Interpretation (test code = 84003-0) [facility]A1C)2020-12-19 01:28:00* Test Item Value Reference Range Interpretation Comme nts HGB A1C (test code = 4548-4) 5.0 % 4-6 JORDAN (test code = JORDAN) %A1C (NGSP) Interpretation (ADA)4.8-5.6 ? ? Normal or (Non-Diabetic Range)5.7-6.4 ? ? Increased Risk (Pre-Diabetic)>6.5 ?Diabetes Indicated Lab Interpretation (test code = 86968-9) Normal [facility] (83427)2020-12-19 01:25:00* Test Item Value Reference Range Interpretation Comme nts NA (test code = 0519672550) 136 mmol/L 135-145 K (test code = 3198836100) 3.7 mmol/L 3.5-5 CL (test code = 2502194723) 102 mmol/L 98-108 CO2 TOTAL (test code = 0846703725) 26 mmol/L 23-31 AGAP (test code = 9629715642) 2-16 BUN (test code = 0945336983) 12 mg/dL 7-23 GLUCOSE (test code = 5180280319) 121 mg/dL 70-110 H CREATININE (test code = 3152470212) 0.63 mg/dL 0.5-1.04 TOTAL BILI (test code = 7507610210) 0.4 mg/dL 0.1-1.1 CALCIUM (test code = 7165227329) 9.0 mg/dL 8.6-10.6 T PROTEIN (test code = 9294698413) 7.2 g/dL 6.3-8.2 ALBUMIN (test code = 9505816176) 4.3 g/dL 3.5-5 ALK PHOS (test code = 3569415970) 59 U/L 34-122 ALTv (test code = 1742-6) 13 U/L 5-35 AST(SGOT) (test code = 8114702513) 21 U/L 13-40 eGFR Calculation (Non-) (test code = 4452114628) mL/min/1.73m2 eGFR Calculation () (test code = 8945784780) mL/min/1.73m2 JORDAN (test code = JORDAN) Association [...] imaging tests). Lab Interpretation (test code = 14816-4) Abnormal [facility] Hospital[facility] (12418)(TOTAL CHOLESTEROL, TRIGLYCERIDES, HDL)2020-12-19 01:25:00* Test Item Value Reference Range Interpretation Comme nts CHOL (test code = 2154440934) 180 mg/dL 120-200 HDL (test code = 7906185725) 49 mg/dL >50 L HDLC RATIO (test code = 8958231431) See_Comment [Poup] The system which generated this result transmitted reference range: <=4.5. The reference range was not used to interpret this result as normal/abnormal. TRIG (test code = 4006491573) 62 mg/dL 30-170 LDL CHOL (test code = 86691-6) 119 mg/dL See_Comment [Poup] The system which generated this result transmitted reference range: <=160. The reference range was not used to interpret this result as normal/abnormal. VLDL (test code = 3830743023) 12 mg/dL 5-60 Lab Interpretation (test code = 95829-5) Abnormal [facility] WITH [id number] 01:14:00* Test Item Value Reference Range Interpretation [...] 32.7 g/dL 31.6-35.1 RDW-SD (test code = 35803-8) 44.1 fL 39-49.9 RDW-CV (test code = 788-0) 12.7 % 12-15.5 PLT (test code = 777-3) See_Comment [Automated messa ge] The system which generated this result transmitted reference range: 166 - 358 10*3/?L. The reference range was not used to interpret this result as normal/abnormal. MPV (test code = 55705-5) 10.5 fL 9.5-12.9 NRBC/100 WBC (test code = 7352406453) See_Comment [Automated [employer] ssage] The system which generated this result transmitted reference range: 0.0 - 10.0 /100 WBCs. The reference range was not used to interpret this result as normal/abnormal. NRBC x10^3 (test code = 0448620252) <0.01 See_Comment [Automated me ssage] The system which generated this result transmitted reference range: 10*3/?L. The reference range was not used to interpret this result as normal/abnormal. GRAN MAT (NEUT) % (test code = 770-8) 59.7 % IMM GRAN % (test code = 6908072811) 0.30 % LYMPH % (test code = 736-9) 29.5 % MONO % (test code = 5905-5) 4.9 % EOS % (test code = 713-8) 4.8 % BASO % (test code = 706-2) 0.8 % GRAN MAT x10^3(ANC) (test code = 1008639122) 4.73 10*3/uL 1.88-7.09 IMM GRAN x10^3 (test code = 1493687467) <0.03 0-0.06 LYMPH x10^3 (test code = 731-0) 2.33 10*3/uL 1.32-3.29 MONO x10^3 (test code = 742-7) 0.39 10*3/uL 0.33-0.92 EOS x10^3 (test code = 711-2) 0.38 10*3/uL 0.03-0.39 BASO x10^3 (test code = 704-7) 0.06 10*3/uL 0.01-0.07 [facility] ([facility]OVID-19) by RT-PCR (HIGH RISK) 2020-12-07 00:00:00* Test Item Value Reference Range Interpretation Comme nts SARS-CoV-2 INTERPRETATION (t est code = 27908) NEGATIVE SOURCE (test code = 97108) NOT SPECIFIED Tomas Marlyn [id number] (COVID-19) by RT-PCR (HIGH RISK)2020-12-07 00:00:00* Test Item Value Reference Range Interpretation Comme nts SARS-CoV-2 INTERPRETATION (t est code = 44213) NEGATIVE SOURCE (test code = 87522) NOT SPECIFIED Tomas Velasquez, [id number] 00:00:00* Test Item Value Reference Range Interpretation Comme nts CULTURE, URINE (test code = 49865) SPECIMEN NUMBER: [id number] Tomas Velasquez, [id number] 00:00:00* Test Item Value Reference Range Interpretation Comme nts CULTURE, URINE (test code = 79294) SPECIMEN NUMBER: [id number] Tomas CarvalhoCOMPREHENSIVE METABOLIC [id number] 00:00:00* Test Item Value Reference Range Interpretation Comme nts GLUCOSE (test code = 2217) 78 MG/DL BUN (test code = 2208) 12 MG/DL CREATININE (test code = 2214) 0.55 MG/DL eGFR AMER. (test cod e = 28223) 147 ML/MIN/1.73 eGFR NON- AMER. (test code = 14249) 127 ML/MIN/1.73 CALC BUN/CREAT (test code = 2235) 22 RATIO SODIUM (test code = 2231) 137 MEQ/L POTASSIUM (test code = 2228) 4.2 MEQ/L CHLORIDE (test code = 2215) 101 MEQ/L CARBON DIOXIDE (test code = 2206) 23 MEQ/L CALCIUM (test code = 2209) 9.3 MG/DL PROTEIN, TOTAL (test code = 2229) 7.3 G/DL ALBUMIN (test code = 2201) 4.4 G/DL CALC GLOBULIN (test code = 2240) 2.9 G/DL CALC A/G RATIO (test code = 2234) 1.5 RATIO BILIRUBIN, TOTAL (test code = 2207) 0.2 MG/DL ALKALINE PHOSPHATASE (test code = 2204) 49 U/L AST (test code = 2218) 14 U/L ALT (test code = 2219) 10 U/L Tomas CarvalhoCBC W/AUTO [id number] 00:00:00* Test Item Value Reference Range Interpretation Comme nts WBC (test code = 1001) 4.9 K/UL RBC (test code = 1002) 4.38 M/UL HEMOGLOBIN (test code = 1003) 13.6 G/DL HEMATOCRIT (test code = 1004) 40.7 % MCV (test code = 1005) 92.9 fL MCH (test code = 1006) 31.1 PG MCHC (test code = 1007) 33.4 G/DL RDW (test code = 1038) 12.7 % NEUTROPHILS (test code = 1008) 47.8 % LYMPHOCYTES (test code = 1010) 36.8 % MONOCYTES (test code = 1011) 7.2 % EOSINOPHILS (test code = 1012) 7.4 % BASOPHILS (test code = 1013) 0.8 % PLATELET COUNT (test code = 1015) 248 K/UL Tomas [id number] 00:00:00* Test Item Value Reference Range Interpretation Comme [facility] TSH (test code = 2821) 2.050 UIU/ML Tomas CarvalhoVITAMIN [id number] 00:00:00* Test Item Value Reference Range Interpretation Comme [facility] VITAMIN B-12 (test code = 2840) 748 PG/ML Tomas CarvalhoVITAMIN D, 25 [id number] 00:00:00* Test Item Value Reference Range Interpretation Comme [facility] VITAMIN D, 25 OH (test code = 4958) 20 NG/ML Tomas CarvalhoCOMPREHENSIVE METABOLIC [id number] 00:00:00* Test Item Value Reference Range Interpretation Comme [facility] GLUCOSE (test code = 2217) 78 MG/DL BUN (test code = 2208) 12 MG/DL CREATININE (test code = 2214) 0.55 MG/DL eGFR AMER. (test cod e = 04255) 147 ML/MIN/1.73 eGFR NON- AMER. (test code = 85252) 127 ML/MIN/1.73 CALC BUN/CREAT (test code = 2235) 22 RATIO SODIUM (test code = 2231) 137 MEQ/L POTASSIUM (test code = 2228) 4.2 MEQ/L CHLORIDE (test code = 2215) 101 MEQ/L CARBON DIOXIDE (test code = 2206) 23 MEQ/L CALCIUM (test code = 2209) 9.3 MG/DL PROTEIN, TOTAL (test code = 2229) 7.3 G/DL ALBUMIN (test code = 2201) 4.4 G/DL CALC GLOBULIN (test code = 2240) 2.9 G/DL CALC A/G RATIO (test code = 2234) 1.5 RATIO BILIRUBIN, TOTAL (test code = 2207) 0.2 MG/DL ALKALINE PHOSPHATASE (test code = 2204) 49 U/L AST (test code = 2218) 14 U/L ALT (test code = 2219) 10 U/L Tomas CarvalhoCBC W/AUTO [id number] 00:00:00* Test Item Value Reference Range Interpretation Comme nts WBC (test code = 1001) 4.9 K/UL RBC (test code = 1002) 4.38 M/UL HEMOGLOBIN (test code = 1003) 13.6 G/DL HEMATOCRIT (test code = 1004) 40.7 % MCV (test code = 1005) 92.9 fL MCH (test code = 1006) 31.1 PG MCHC (test code = 1007) 33.4 G/DL RDW (test code = 1038) 12.7 % NEUTROPHILS (test code = 1008) 47.8 % LYMPHOCYTES (test code = 1010) 36.8 % MONOCYTES (test code = 1011) 7.2 % EOSINOPHILS (test code = 1012) 7.4 % BASOPHILS (test code = 1013) 0.8 % PLATELET COUNT (test code = 1015) 248 K/UL Tomas [id number] 00:00:00* Test Item Value Reference Range Interpretation Comme nts TSH (test code = 2821) 2.050 UIU/ML Tomas CarvalhoVITAMIN [id number] 00:00:00* Test Item Value Reference Range Interpretation Comme nts VITAMIN B-12 (test code = 2840) 748 PG/ML Tomas CarvalhoVITAMIN D, 25 [id number] 00:00:00* Test Item Value Reference Range Interpretation Comme nts VITAMIN D, 25 OH (test code = 4958) 20 NG/ML Tomas Cline TrentAMYDIA, AMPLIFIED, [id number] 00:00:00* Test Item Value Reference Range Interpretation Comme nts CHLAMYDIA, TMA (test code = 25449) NEGATIVE Tomas Cline DevenGC, AMPLIFIED, [id number] 00:00:00* Test Item Value Reference Range Interpretation Comme nts GONORRHEA, TMA (test code = 14027) NEGATIVE Tomas Cline DevenCHLAMYDIA, AMPLIFIED, [id number] 00:00:00* Test Item Value Reference Range Interpretation Comme nts CHLAMYDIA, TMA (test code = 56441) NEGATIVE Tomas Cline DevenGC, AMPLIFIED, [id number] 00:00:00* Test Item Value Reference Range Interpretation Comme nts GONORRHEA, TMA (test code = 23936) NEGATIVE Tomas CarvalhoGC AND CHLAMYDIA, AMPLIFIED, [id number] 00:00:00* Test Item Value Reference Range Interpretation Comme nts GONORRHEA, TMA (test code = 40569) NEGATIVE CHLAMYDIA, TMA (test code = 90933) POSITIVE Tomas CarvalhoGC AND CHLAMYDIA, AMPLIFIED, [id number] 00:00:00* Test Item Value Reference Range Interpretation Comme nts GONORRHEA, TMA (test code = 27276) NEGATIVE CHLAMYDIA, TMA (test code = 25089) POSITIVE Tomas CarvalhoVAGINAL PATHOGENS DNA [id number] 00:00:00* Test Item Value Reference Range Interpretation Comme nts BUTCH SPECIES (test code = 13876) NEGATIVE G. VAGINALIS (test code = 70739) POSITIVE T. VAGINALIS (test code = 74457) NEGATIVE Tomas CarvalhoVAGINAL PATHOGENS DNA [id number] 00:00:00* Test Item Value Reference Range Interpretation Comme nts BUTCH SPECIES (test code = 73287) NEGATIVE G. VAGINALIS (test code = 38531) POSITIVE T. VAGINALIS (test code = 26693) NEGATIVE Tomas Carvalho Notes Date/Time Note Provider Source Tomas Carvalho [facility]2024-09-30 00:00:00 Tomas Hollins [facility]"
--- NOTE | 2024-10-03 22:09 | RAD REPORT ---
Procedure: Chest Pa And Lat (2 Views) HISTORY: Cough COMPARISON: 2020 FINDINGS: The lungs appear clear of acute infiltrate. No significant pleural effusion noted. The heart is normal size. IMPRESSION: No acute abnormality is displayed.
--- NOTE | 2024-10-03 22:32 | ER ---
Nurse's Notes [facility] Name: Dede Mcgee Age: 34 yrs Sex: Female : 1990 Arrival Date: 10/03/2024 Time: 21:09 Bed 7 Private MD: Diagnosis: Cough Presentation: 10/03 21:18 Chief complaint: Patient states: blood pressure has been high for about 4 days. Cold tm6 symptoms started about 3 days ago, with coughing and congestion. Chest feels strained from coughing. Feels a little dizzy. Coronavirus screen: Client denies travel out of the [place] in the last 14 days. Ebola Screen: Patient negative for fever greater than or equal to 101.5 degrees Fahrenheit, and additional compatible Ebola Virus Disease symptoms Patient denies exposure to infectious person. Patient denies travel to an Ebola-affected area in the 21 days before illness onset. No symptoms or risks identified at this time. Initial Sepsis Screen: Does the patient meet any 2 criteria? No. Patient's initial sepsis screen is negative. Does the patient have a suspected source of infection? No. Patient's initial sepsis screen is negative. Risk Assessment: Do you want to hurt yourself or someone else? Patient reports no desire to harm self or others. Onset of symptoms was September 29, 2024. 21:18 Method Of Arrival: Ambulatory tm6 21:18 Acuity: JOSLYN 4 tm6 Triage Assessment: 21:22 General: Appears in no apparent distress. Behavior is calm, cooperative. Pain: tm6 Complains of pain in chest Pain currently is 0 out of 10 on a pain scale. Quality of pain is described as "strain from coughing". EENT: No signs and/or symptoms were reported regarding the EENT system. Neuro: Level of Consciousness is awake, alert, obeys commands, Oriented to person, place, time, situation. Cardiovascular: Patient's skin is warm and dry. Respiratory: Airway is patent Respiratory effort is even, unlabored, Respiratory pattern is regular, symmetrical. Respiratory: Reports cough that is persistent. GI: No signs and/or symptoms were reported involving the gastrointestinal system. Abdomen is flat, non-distended. : No signs and/or symptoms were reported regarding the genitourinary system. Derm: No signs and/or symptoms reported regarding the dermatologic system. Musculoskeletal: No signs and/or symptoms reported regarding the musculoskeletal system. 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 - Infectious Disease History:: Denies. - Social history:: Smoking status: Patient denies any tobacco usage or history of. Screenin:37 [facility] ED Fall Risk Assessment (Adult) History of falling in the last 3 months, ha1 including since admission No falls in past 3 months (0 pts) Confusion or Disorientation No (0 pts) Intoxicated or Sedated No (0 pts) Impaired Gait No (0 pts) Mobility Assist Device Used No (0 pt) Altered Elimination No (0 pt) Score/Fall Risk Level 0 - 2 = Low Risk Oriented to surroundings, Maintained a safe environment, Educated pt \\T\\ family on fall prevention, incl call for assistance when getting out of bed, Hourly rounding (assess needs \\T\\ fall precautionary measures) done. Abuse screen: Denies threats or abuse. Denies injuries from another. Nutritional screening: No deficits noted. Tuberculosis screening: No symptoms or risk factors identified. Assessment: 21:27 General: Appears uncomfortable, Behavior is calm, cooperative. Pain: Complains of pain ha1 in when coughing Pain does not radiate. Pain currently is 4 out of 10 on a pain scale. Quality of pain is described as aching, Pain began gradually, 2-3 days ago. Neuro: Level of Consciousness is awake, alert, obeys commands, Oriented to person, place, time, situation. Cardiovascular: Patient's skin is warm and dry. Respiratory: Reports cough that is non-productive, dry, hacking, persistent Airway is patent Respiratory effort is even, unlabored, Respiratory pattern is regular, symmetrical. 22:36 Reassessment: Patient and/or family updated on plan of care and expected duration. Pain ha1 level reassessed. Patient is alert, oriented x 3, equal unlabored respirations, skin warm/dry/pink. Patient states symptoms have improved. Vital Signs: 21:18 BP 137 / 98; Pulse 86; Resp 19; Temp 98.6(O); Pulse Ox 100% on R/A; MAP 110 mmHg; tm6 Weight 82.55 kg; Height 5 ft. 10 in. ; Pain 0/10; 22:36 BP 133 / 95; Pulse 82; Resp 17 S; Temp 97.9(T); Pulse Ox 99% on R/A; ha1 21:18 Body Mass Index 26.11 (82.55 kg, 177.8 cm) tm6 21:18 Pain Scale: Adult tm6 ED Course: 21:11 Patient arrived in ED. jj6 21:15 Balta Sharif PA is PHCP. cp 21:15 Blaze Dukes MD is Attending Physician. cp 21:20 Triage completed. tm6 21:20 Arm band placed on left wrist. tm6 21:27 Patient has correct armband on for positive identification. Placed in gown. Bed in low ha1 position. Call light in reach. Side rails up X 1. 21:27 Provided Education on: plan of care . Client placed on continuous cardiac and pulse ha1 oximetry monitoring. NIBP monitoring applied. monitoring and evaluation advisor on. 22:00 XRAY Chest Pa And Lat (2 Views) In Process Unspecified. EDMS 22:38 No provider procedures requiring assistance completed. Patient did not have IV access ha1 during this emergency room visit. Patient maintains SpO2 saturation greater than 95% on room air. Administered Medications: No medications were administered Medication: 22:39 VIS not applicable for this client. ha1 Outcome: 22:31 Discharge ordered by MD. cp 22:38 Discharged to home ambulatory, with family, ha1 22:38 Condition: stable 22:38 Discharge instructions given to patient, family, Instructed on discharge instructions, follow up and referral plans. medication usage, Demonstrated understanding of instructions, follow-up care, medications, Prescriptions given X 2, 22:41 Patient left the ED. ha1 Signatures: Dispatcher [employer] EDMS Balta Sharif PA PA cp Jeffries, Jennifer jj6 Faith Amin RN RN ha1 Fazal Ray RN RN tm6 Corrections: (The following items were deleted from the chart) 21:21 21:20 Allergies: montelukast; tm6 tm6
--- NOTE | 2024-10-03 22:32 | EDPHYS ---
Physician Documentation [facility] Name: Dede Mcgee Age: 34 yrs Sex: Female : 1990 Arrival Date: 10/03/2024 Time: 21:09 Bed 7 Private MD: ED Physician Blaze Dukes HPI: 10/03 21:27 This 34 yrs old Black Female presents to ER via Ambulatory with complaints of High cp Blood Pressure, Cough. 21:27 The patient has elevated blood pressure and discovered this at home, with a home cp device. Onset: The symptoms/episode began/occurred 4 day(s) ago. Severity of symptoms: in the emergency department the blood pressure is improved, 137 mm Hg. 21:27 Associated signs and symptoms: Pertinent positives: cough times 3 days. cp [employer]: 21:20 LMP N/A - control method, Not tm6 Historical: - Allergies: 21:20 SHELLFISH; tm6 21:20 Singulair; tm6 - PMHx: 21:20 Anxiety; Asthma; Bronchitis; Depression; Hypertension; Ovarian cyst; tm6 - PSHx: 21:20 ovarian cyst; tm6 - Immunization history:: Client reports having NOT received the Covid vaccine. - Infectious Disease History:: Denies. - Social history:: Smoking status: Patient denies any tobacco usage or history of. ROS: 21:33 Respiratory: Positive for cough, Negative for shortness of breath, wheezing, cp 21:33 Cardiovascular: Negative for chest pain, edema, palpitations, cp 21:33 Abdomen/GI: Negative for abdominal pain, vomiting, diarrhea, constipation, Exam: 21:35 Constitutional: The patient appears in no acute distress, alert, awake, cp non-diaphoretic, non-toxic, well developed, well nourished, 21:35 Head/Face: Normocephalic, atraumatic. cp 21:35 Eyes: Periorbital structures: appear normal, Conjunctiva: normal, no exudate, no injection, Sclera: no appreciated abnormality, Lids and lashes: appear normal, bilaterally, 21:35 ENT: External ear(s): are unremarkable, Nose: is normal, Mouth: Lips: moist, Oral mucosa: pink and intact, moist, Posterior pharynx: is normal, airway is patent, no erythema, no exudate, 21:35 Chest/axilla: Inspection: normal, Palpation: is normal, no crepitus, no tenderness, 21:35 Cardiovascular: Rate: normal, Rhythm: regular, Edema: is not appreciated, JVD: is not appreciated, 21:35 Respiratory: the patient does not display signs of respiratory distress, Respirations: normal, no use of accessory muscles, no retractions, labored breathing, is not present, Breath sounds: decreased breath sounds, are not appreciated, stridor, is not appreciated, wheezing: is not appreciated, 21:35 Abdomen/GI: Exam negative for discomfort, distension, guarding, Inspection: abdomen appears normal, 21:35 Back: pain, is absent, ROM is normal, 21:35 Neuro: Orientation: to person, place \T\ time. Mentation: is normal, Motor: moves all fours, strength is normal, Sensation: is normal, Vital Signs: 21:18 BP 137 / 98; Pulse 86; Resp 19; Temp 98.6(O); Pulse Ox 100% on R/A; MAP 110 mmHg; tm6 Weight 82.55 kg; Height 5 ft. 10 in. ; Pain 0/10; 22:36 BP 133 / 95; Pulse 82; Resp 17 S; Temp 97.9(T); Pulse Ox 99% on R/A; ha1 21:18 Body Mass Index 26.11 (82.55 kg, 177.8 cm) tm6 21:18 Pain Scale: Adult tm6 MDM: 22:31 Medical Screening Exam initiated cp 22:31 Data reviewed: vital signs, nurses notes, radiologic studies, plain films, and as a cp result, I will discharge patient. 22:31 Differential diagnosis: hypertensive crisis, Malignant HTN, CVA, intracerebral cp hemorrhage. Counseling: I had a detailed discussion with the patient and/or guardian regarding the historical points, exam findings, and any diagnostic results supporting the discharge/admit diagnosis, radiology results, to return to the emergency department if symptoms worsen or persist or if there are any questions or concerns that arise at home. ED course: VSS. Patient appears non-toxic and no signs of respiratory distress. Will discharge to home for continued monitoring. 10/03 21:26 Order name: XRAY Chest Pa And Lat (2 Views); Complete Time: 22:11 cp Administered Medications: No medications were administered Disposition: 10/04 21:24 Chart complete. cp Disposition Summary: 10/03/24 22:31 Discharge Ordered Notes: Location: Home cp Problem: new cp Symptoms: have improved cp Condition: Stable cp Diagnosis - Cough cp Followup: cp - With: Private Physician - When: 2 - 3 days - Reason: Worsening of condition Discharge Instructions: - Discharge Summary Sheet cp - Cough, Adult cp - Form - Blood Pressure Record Sheet cp - How to Take Your Blood Pressure cp Forms: - Medication Reconciliation Form cp - Antibiotic Education cp - Prescription Opioid Use cp - Patient Portal Instructions cp - Leadership Thank You Letter cp Prescriptions: - Bromfed DM 2-30-10 mg/5 mL Oral syrup - administer 10 milliliter ORAL route every 6 hours As needed as needed for cold cp symptoms; 240 milliliter; Refills: 0, Product Selection Permitted - Zithromax Z-Ruben 250 mg Oral Tablet - take 1 tablet ORAL route as directed for 5 days Day 1 - take two (2) tablets cp one time. Day 2, 3, 4 , 5 take one (1) tablet once daily.; 6 tablet; Refills: 0, Product Selection Permitted Signatures: Dispatcher [employer] EDMS Balta Sharif PA PA cp Fazal Ray RN RN tm6 Corrections: (The following items were deleted from the chart) 10/03 21:21 21:20 Allergies: montelukast; tm6 tm6 21:53 21:27 This 34 yrs old Black Female presents to ER via Ambulatory with complaints of cp High Blood Pressure, Chest Pain. cp
[2024-10-03 23:06] VITALS: BP 133/95; TEMP 97.9; O2SAT 99
== END 2024-10-03 22:41 | disposition home or self-care (01) ==
LOC: ER 21:09
DX: R05.9 Cough, unspecified (principal); I10 Essential (primary) hypertension; Z28.310 Unvaccinated for COVID-19
CPT/HCPCS: 71046; 99284

== ENCOUNTER 2025-02-08 10:24 | Emergency (ER) | payer SELFPAY ==
--- OUTSIDE RECORDS SUMMARY | 2025-02-08 10:29 | XMS REPORT | Continuity of Care Document ---
Author Name Unknown Address [address] [facility] [place]. [address] [place] [address] [facility] Address [address] [place]. [address] [place] [address] Care Team Providers Care Audit Director Name Role Phone JAREK KING Primary Care Physician Unava RADHA Bradford Attending Clinician UnavailMAGGIE Aranda Attending Clinician Unavailable REMI DHALIWAL Attending Clinician Unavail able REMI DHALIWAL Attending Clinician Unavail Remi Jacobs MD Attending Clinician Visit, [facility] Nurse Attending Clinician Unavailable Doctor Unassigned, [place] Attending Clinician U Eve Busch DO Attending Clinician [phone] [place] Attending Clinician Unavailable Payers Payer Name Policy Type Policy Number Effective Date Expirati on Date Source [facility] [id number] 2022 00:00:00 Problems Condition Name Condition Details Condition Category Status Onset Date Resolution Date Last Treatment Date Treating Clinician Comments Source Spotting affecting , antepartum Spotting affecting , antepartum Disease Active 2012-11 00:00: 00 Overview: ICD10 Diagnosis 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 [facility] Rubella immune Rubella immune Disease Active 2012-11 00:00: 00 [facility] Immune to varicella Immune to varicella Disease Active 2012-11 00:00: 00 [facility] Pain of round ligament complicati ng , antepartum Pain of round ligament complicati ng , antepartum Disease Active 2012-11 0-15 00:00: 00 [facility] High-risk High-risk Disease Active 2012-11 015 00:00: 00 Overview: ICD10 Diagnosis 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 SHWETHA in 3 weeks. [facility] Insufficie nt care Insufficie nt care Disease Active 2012-11 0 00:00: 00 [facility] Allergies, Adverse Reactions, Alerts Allergy Name [...] to adverse reaction s Active Rash 2015-11 2- 00:00: 00 [facility] SEAFOOD/ FISH Food Active Rash 2015-11 2-03 00:00: 00 [facility] Singulai r Propensi ty to adverse reaction to drug Inactiv e 6-21 00:00: 00 Tomas Carvalho [place] ast Propensi ty to adverse reaction s Active Shortness of Breath 2012-11 0 00:00: 00 [facility] MONTELUK AST DRUG INGREDI Active SOB 2012-11 010 00:00: 00 [facility] Social History Social Habit Start Date Stop Date Quantity Comments Source Sex Assigned At [facility] Exposure to SARS-CoV-2 (event) Not sure [facility] Tobacco use and exposure 2020-12-28 00:00:00 2020-12-28 00:00:00 Never used [facility] Alcohol intake 2020-12-28 00:00:00 2020-12-28 00:00:00 Current non-drinker of alcohol (finding) [facility] Smoking Status Start Date Stop Date Source Never smoker [facility] Medications Ordered Medication Name Filled Medication Name Start Date Stop Date Current Medication? Ordering Clinician Indication Dosage Frequency Signature (SIG) Comments Components Source Mirena 21 mcg/24 hr (up to 8 years) 52 mg intrauterin e device 1 00:00: 00 Yes 1to 8 yrs) 52 mg Tomas Carvalho albuterol sulfate HFA 90 mcg/actuati on aerosol inhaler 2023-11 011 00:00: 00 Yes 12mcg/a ctuatio n Tomas Carvalho lisinopril 20 mg tablet 08-25 00:00: 00 Yes mg Tomas Carvalho amlodipine 5 mg tablet 08-25 00:00: 00 Yes mg Tomas Carvalho lisinopril 20 mg tablet 1-05 00:00: 00 Yes mg Tomas Carvalho amlodipine 5 mg tablet - 00:00: 00 Yes mg Tomas Carvalho TAKE 1 TABLET DAILY. 2022-11 00:00: 00 Yes 20 Tomas Carvalho TAKE 1 TABLET DAILY. 2022-11 00:00: 00 Yes 5 Tomas Carvalho TAKE 1 TABLET TWICE DAILY WITH FOOD. 2022-11 00:00: 00 03-17 00:00 :00 No [id number] Tomas Carvalho TAKE ONE (1) TABLET(S) BY MOUTH ONCE A DAY. -18 00:00: 00 Yes Tomas Carvalho TAKE 1 TABLET DAILY. 5-18 00:00: 00 03-17 00:00 :00 No 20 Tomas Carvalho TAKE 1 TABLET EVERY 8 HOURS NEEDED. 3-14 00:00: 00 03-17 00:00 :00 No 800 Tomas Carvalho TAKE ONE (1) TABLET(S) BY MOUTH EVERY TWELVE HOURS FOR 5 DAYS. - 00:00: 00 Yes Tomas Carvalho TAKE ONE (1) TABLET(S) BY MOUTH ONCE A DAY FOR 5 DAYS. 01-21 00:00: 00 Yes Tomas Carvalho TAKE 1 TABLET DAILY. 12-19 00:00: 00 03-17 00:00 :00 No 50 Tomas Carvalho INHALE 2 PUFFS EVERY 4-6 HOURS NEEDED. 12-19 00:00: 00 03-17 00:00 :00 No [id number] Tomas Carvalho INHALE 1 PUFF TWICE DAILY. RINSE MOUTH AFTER USE. 12-19 00:00: 00 03-17 00:00 :00 No 110 Tomas Carvalho TAKE 10 ML EVERY 6 TO 8 HOURS NEEDED FOR COUGH 12-19 00:00: 00 03-17 00:00 :00 No [id number] Tomas Carvalho Dose Unknown 12-08 00:00: 00 [...] 00:00: 00 Yes Tomas Carvalho Dose Unknown 16 00:00: 00 Yes Tomas Carvalho Dose Unknown 16 00:00: 00 Yes Tomas Carvalho TAKE 1 TABLET BY MOUTH DAILY 05-18 00:00: 00 Yes Tomas Carvalho TAKE 1 TABLET BY MOUTH DAILY 05-06 00:00: 00 Yes Tomas Carvalho TAKE 1 TABLET BY MOUTH DAILY 04-27 00:00: 00 Yes Tomas Carvalho amlodipine 5 mg tablet 30 00:00: 00 Yes 1mg Tomas Carvalho lisinopril 20 mg tablet 04-24 00:00: 00 Yes 1mg Tomas Carvalho Dose Unknown 16 00:00: 00 Yes Tomas Carvalho Dose Unknown 16 00:00: 00 Yes Tomas Carvalho Dose Unknown 02-03 00:00: 00 Yes Tomas Carvalho Dose Unknown 02-03 00:00: 00 Yes Tomas Carvalho Dose Unknown 3 00:00: 00 Yes Tomas Carvalho Dose Unknown [...] 1mg Tomas Carvalho lisinopril 10 mg tablet 04-04 00:00: 00 Yes 1mg Tomas Carvalho lisinopril 10 mg tablet 01-06 00:00: 00 Yes 1mg Tomas Carvalho lisinopriL 10 mg tablet 12-18 00:00: 00 Yes [id number] 10mg Take 1 tablet by mouth at bedtime. [facility] aspirin 81 mg chewable tablet 12-18 00:00: 00 Yes [id number] 81mg Take 1 tablet by mouth daily. [facility] lisinopril 10 mg tablet 08-21 00:00: 00 Yes 1mg Tomas Carvalho traMADOL (ULTRAM) 50 mg tablet 2015-11 00:00: 00 Yes 50mg Take 1 tablet by mouth every 6 (six) hours as needed for Pain (scale 4-6). Blaze Wise PA-C / Olivier Tapia MD BERTHA# [id number] DPS# [id number] x Lic.# [id number] [facility]# [id number] [facility] Zithromax 500 mg tablet 05-19 00:00: 00 Yes 2mg Tomas Carvalho Mirena 20 mcg/24 hours (7 yrs) 52 mg intrauterin e device 05-16 00:00: 00 Yes 12 mL(600k /600k) Tomas Carvalho Cipro 500 mg tablet 05-16 00:00: 00 Yes 1mg Tomashaseeb Carvalho Vital Signs Vital Name Observation Time Observation Value Comments S jakob Systolic blood pressure 2020-12-28 16:27:00 127 mm[Hg] [facility] Diastolic blood pressure 2020-12-28 16:27:00 80 mm[Hg] [facility] Oxygen saturation in Arterial blood by Pulse oximetry 2020-12-28 16:27:00 100 /min [facility] Systolic blood pressure 2020-12-19 01:00:00 144 mm[Hg] [facility] Diastolic blood pressure 2020-12-19 01:00:00 94 mm[Hg] [facility] Heart rate 2020-12-19 01:00:00 72 /min [facility] Respiratory rate 2020-12-19 01:00:00 17 /min [facility] Oxygen saturation in Arterial blood by Pulse oximetry 2020-12-19 01:00:00 100 /min [facility] Body temperature 2020-12-19 00:30:00 36.22 Geri [facility] Body weight 2020-12-19 00:30:00 83.915 kg [facility] BMI 2020-12-19 00:30:00 26.54 kg/m2 [facility] BP Systolic 2024-12-24 10:39:00 136 mm[Hg] Jason haseeb Cline Deven BP Diastolic 2024-12-24 10:39:00 96 mm[Hg] Ron phen F Deven Weight Measured 2024-12-24 10:39:00 182.80 pounds Tomas F Deven Height Measured 2024-12-24 10:39:00 70.00 inches Tomas F Deven Body Temperature 2024-12-24 10:39:00 98.10 degrees Tomas F Deven Heart Rate 2024-12-24 10:39:00 63.00 /min Gayle en F Deven Respiratory Rate 2024-12-24 10:39:00 18.00 /min Tomas F Deven BP Diastolic 2023-11-04 12:59:00 Ron phen F Deven Weight Measured 2023-11-04 12:59:00 184.40 pounds Tomas F Deven Height Measured 2023-11-04 12:59:00 70.00 inches Tomas F Deven Body Temperature 2023-11-04 12:59:00 Tomas F Deven Heart Rate 2023-11-04 12:59:00 Gayle en F Deven Respiratory Rate 2023-11-04 12:59:00 Tomas F Deven BP Systolic 2023-11-04 12:59:00 Step hen F [...] 2023-02-06 15:09:00 67.00 /min Gayle en F Deven Respiratory Rate 2023-02-06 15:09:00 18.00 /min Tomas [...] Systolic 2022-05-06 09:54:00 123 mm[Hg] Step hen F Deven BP Diastolic 2022-05-06 09:54:00 83 mm[Hg] Ron phen F Deven Weight Measured 2022-05-06 09:54:00 180.80 pounds Tomas F Deven Height Measured 2022-05-06 09:54:00 70.00 inches Tomas F Deven Body Temperature 2022-05-06 09:54:00 98.10 degrees Tomas F Deven Heart Rate 2022-05-06 09:54:00 63.00 /min Gayle en F Deven Respiratory Rate 2022-05-06 09:54:00 Tomas F Deven BP Systolic 2021-07-16 14:49:00 144 mm[Hg] Step hen F Deven BP Diastolic 2021-07-16 14:49:00 96 mm[Hg] Ron phen F Deven Weight Measured 2021-07-16 14:49:00 177.40 pounds Tomas F Deven Height Measured 2021-07-16 14:49:00 70.00 inches Tomas F Deven Body Temperature 2021-07-16 14:49:00 98.40 degrees Tomas F Deven Heart Rate 2021-07-16 14:49:00 66.00 /min Gayle Carvalho Respiratory Rate 2021-07-16 14:49:00 17.00 /min Tomas Carvalho Procedures Procedure Date / Time Performed Performing Clinician Source REFERRAL- REQUEST/RESPONSE 2020-12-24 06:01:00 Doctor Unassigned, [place] [facility] COMP. METABOLIC PANEL (70600) 2020-12-19 00:58:00 Singer [facility] LIPID PANEL (95546)(TOTAL CHOLESTEROL, TRIGLYCERIDES, HDL) 2020-12-19 00:58:00 Singer [facility] CBC WITH DIFF 2020-12-19 00:58:00 Singer [facility] GLYCOSYLATED HEMOGLOBIN (A1C) 2020-12-19 00:58:00 Singer [facility] URINALYSIS 2020-12-19 00:57:00 Singer [facility] Encounters Start Date/Time End Date/Time Encounter Type Admission Type Attending [facility] Care Department Encounter ID Source 2025-01-26 09:39:33 2025-01-26 09:39:33 Outpatient SFA [facility] [id number] Tomas Carvalho 2025-01-09 15:28:59 2025-01-09 15:28:59 Outpatient SFA SFA [id number] Tomas Carvalho 2025-01-06 10:34:55 2025-01-06 10:34:55 Outpatient SFA [facility] [id number] Tomas Carvalho 2024-12-24 10:30:40 2024-12-24 10:30:40 Outpatient SFA SFA [id number] Tomas Carvalho 2024-12-24 00:00:00 2024-12-24 00:00:00 Outpatient Visit SFA [id number] Tomas Carvalho 2024-09-05 00:00:00 2024-09-05 00:00:00 Outpatient Visit SFA [id number] Tomas Carvalho 2024-08-25 00:00:00 2024-08-25 00:00:00 Outpatient Visit [facility] [id number] Tomas Carvalho 2024-02-12 13:23:03 2024-02-12 13:23:03 Outpatient SFA [facility] [id number] Tomas Cline Deven 2023-06-26 15:19:22 2023-06-26 15:19:22 Outpatient SFA [facility] [id number] Tomas Cline Deven 2023-04-06 09:00:00 2023-04-06 09:00:00 Outpatient RADHA MOLINA [facility] [id number] [facility] 2023-02-06 15:00:41 2023-02-06 15:00:41 Outpatient SFA [facility] [id number] Tomas Cline Brandt 2023-01-01 14:43:21 2023-01-01 14:43:21 Outpatient SFA [facility] [id number] Tomas Cline Brandt 2021-01-18 11:00:00 2021-01-18 11:00:00 Outpatient MAGGIE MAHMOOD [facility] [id number] [facility] 2021-01-04 10:40:00 2021-01-04 10:40:00 Outpatient REMI GALLO [facility] [id number] [facility] 2020-12-28 10:05:46 2020-12-28 14:30:27 Office Visit Remi Dhaliwal [facility] [id number] [facility] 2020-12-28 11:53:54 2020-12-28 12:04:03 Nurse Visit Visit, [facility] Nurse Remi Dhaliwal [facility] [id number] [facility] 2020-12-28 10:00:00 2020-12-28 10:00:00 Outpatient REMI GALLO HOWARD [facility] [id number] [facility] 2020-12-24 00:00:00 2020-12-24 00:00:00 Orders Only Doctor Unassigned, [place] [facility] [id number] [facility] 2020-12-18 18:22:00 2020-12-18 21:05:00 Emergency [facility] [id number] [facility] 2020-12-18 18:22:00 2020-12-18 18:22:00 Emergency X [facility] ERT [id number] [facility] Results Test Description Test Time Test Comments Results Result Co mments Source COMPREHENSIVE METABOLIC [id number] 08:27:50* Test Item Value Reference Range Interpretation Comme nts GLUCOSE (test code = 2217) 85 MG/DL 70-99 BUN (test code = 2208) 10 MG/DL 6-20 CREATININE (test code = 2214) 0.79 MG/DL 0.60-1.30 eGFR (2020 CKD-EPI) (test code = 22563) 101 ML/MIN/1.73 >60 CALC BUN/CREAT (test code [...] code = 2206) 0.3 MG/DL See_Comment [Automated ak ssage] The system which generated this result transmitted reference range: <=1.2. The reference range was not used to interpret this result as normal/abnormal. ALKALINE PHOSPHATASE (test code = 2203) 51 U/L 40-114 AST (test code = 2217) 16 U/L 9-40 ALT (test code = 9) 14 U/L 5-40 CBC W/AUTO DIFF WITH [id number] 02:29:45* Test Item Value Reference Range Interpretation [...] 0.00-0.10 ABS NUCLEATED RBCS (test code = 08846) 0.00 K/UL 0.00-0.11 CBC W/AUTO [id number] 00:00:00* Test Item Value Reference Range Interpretation [...] ABS NUCLEATED RBCS (test cod e = 18383) 0.00 K/UL Tomas CarvalhoCOMPREHENSIVE METABOLIC [id number] 00:00:00* Test Item Value Reference Range Interpretation Comme nts GLUCOSE (test code = 2217) 85 MG/DL BUN (test code = 2208) 10 MG/DL CREATININE (test code = 2214) 0.79 MG/DL eGFR (2020 CKD-EPI) (test code = 83583) 101 ML/MIN/1.73 CALC BUN/CREAT (test code = [...] (test code = 2219) 14 U/L Tomas Pastrana, THIRD [id number] 00:00:00* Test Item Value Reference Range Interpretation Comme nts TSH, THIRD GENERATION (test code = 2821) 2.960 UIU/ML Tomas CarvalhoCBC W/AUTO [id number] 00:00:00* Test Item Value Reference Range Interpretation [...] ABS NUCLEATED RBCS (test cod e = 94099) 0.00 K/UL Tomas CarvalhoCOMPREHENSIVE METABOLIC [id number] 00:00:00* Test Item Value Reference Range Interpretation Comme nts GLUCOSE (test code = 2217) 85 MG/DL BUN (test code = 2208) 10 MG/DL CREATININE (test code = 2214) 0.79 MG/DL eGFR (2020 CKD-EPI) (test code = 20180) 101 ML/MIN/1.73 CALC BUN/CREAT (test code = [...] (test code = 2219) 14 U/L Tomas Perez, THIRD [id number] 00:00:00* Test Item Value Reference Range Interpretation Comme nts TSH, THIRD GENERATION (test code = 2821) 2.960 UIU/ML Tomas CarvalhoCBC W/AUTO [id number] 00:00:00* Test Item Value Reference Range Interpretation [...] ABS NUCLEATED RBCS (test cod e = 56224) 0.00 K/UL Tomas CarvalhoCOMPREHENSIVE METABOLIC [id number] 00:00:00* Test Item Value Reference Range Interpretation Comme nts GLUCOSE (test code = 2217) 85 MG/DL BUN (test code = 2208) 10 MG/DL CREATININE (test code = 2214) 0.79 MG/DL eGFR (2020 CKD-EPI) (test code = 01427) 101 ML/MIN/1.73 CALC BUN/CREAT (test code = 2235) 13 RATIO SODIUM (test code = 2231) 142 MEQ/L POTASSIUM (test code = 2228) 5.0 MEQ/L CHLORIDE (test code = 2215) 105 MEQ/L CARBON DIOXIDE (test code = 220) 26 MEQ/L CALCIUM (test code = 220) 9.5 MG/DL PROTEIN, TOTAL (test code = 222) 6.5 G/DL ALBUMIN (test code = 2201) 4.4 G/DL CALC GLOBULIN (test code = 2240) 2.1 G/DL CALC A/G RATIO (test code = 2234) 2.1 RATIO BILIRUBIN, TOTAL (test code = 2206) 0.3 MG/DL ALKALINE PHOSPHATASE (test code = 220) 51 U/L AST (test code = 221) 16 U/L ALT (test code = 221) 14 U/L Tomas PastranaH, THIRD [id number] 00:00:00* Test Item Value Reference Range Interpretation Comme nts TSH, THIRD GENERATION (test code = 2821) 2.960 UIU/ML Tomas CarvalhoCOMPREHENSIVE METABOLIC [id number] 06:03:27* Test Item Value Reference Range Interpretation Comme nts GLUCOSE (test code = 7) 76 MG/DL 70-99 BUN (test code = 2207) 13 MG/DL 6-20 CREATININE (test code = 221) 0.69 MG/DL 0.60-1.30 eGFR (2020 CKD-EPI) (test code = 22667) 117 ML/MIN/1.73 >60 CALC BUN/CREAT (test code = 223) 19 RATIO 6-28 SODIUM (test code = [...] code = 2219) 11 U/L 5-40 LIPID [id number] 06:03:27* Test Item Value Reference Range Interpretation [...] SPECIMENS. FOR MOREINFORMATION, SEE CLIENT ANNOUNCEMENT AT [email or web address] RISK RATIO LDL/HDL (test code = 2238) 1.58 RATIO <3.22 HEMOGLOBIN [id number] 03:25:35* Test Item Value Reference Range Interpretation Comme nts HEMOGLOBIN A1c (test code = 99665) 5.5 % 4.2-5.6 [facility] has impo rtant pathology staff changes effective 01/24/2023. New pathology staff will provide uninterrupted, excellent patient care and clinical consultation. See URL: [email or web address]. UNLESS OTHERWISE INDICATED, ALL TESTING PERFORMED AT [facility] [address], [place] CLIA: [id number], CAP: [id number] COMPREHENSIVE METABOLIC [id number] 00:00:00* Test Item Value Reference Range Interpretation Comme nts GLUCOSE (test code = 2217) 76 MG/DL BUN (test code = 2208) 13 MG/DL CREATININE (test code = 2214) 0.69 MG/DL eGFR (2020 CKD-EPI) (test code = 85744) 117 ML/MIN/1.73 CALC BUN/CREAT (test code = [...] (test code = 2219) 11 U/L Tomas Cline BrandtLIPID [id number] 00:00:00* Test Item Value Reference Range Interpretation Comme nts CHOLESTEROL (test code = 2210) 177 MG/DL TRIGLYCERIDES (test code = 2232) 83 MG/DL HDL CHOLESTEROL (test code = 2220) 62 MG/DL CALC LDL CHOL (test code = 2237) 98 MG/DL RISK RATIO LDL/HDL (test cod e = 2238) 1.58 RATIO Tomas CarvalhoHEMOGLOBIN [id number] 00:00:00* Test Item Value Reference Range Interpretation Comme nts HEMOGLOBIN A1c (test code = 60902) 5.5 % Tomas Cline DevenCOMPREHENSIVE METABOLIC [id number] 00:00:00* Test Item Value Reference Range Interpretation Comme nts GLUCOSE (test code = 2217) 76 MG/DL BUN (test code = 2208) 13 MG/DL CREATININE (test code = 2214) 0.69 MG/DL eGFR (2020 CKD-EPI) (test code = 69544) 117 ML/MIN/1.73 CALC BUN/CREAT (test code = [...] code = 2219) 11 U/L Tomas CarvalhoLIPID [id number] 00:00:00* Test Item Value Reference Range Interpretation Comme nts CHOLESTEROL (test code = 2210) 177 MG/DL TRIGLYCERIDES (test code = 2232) 83 MG/DL HDL CHOLESTEROL (test code = 2220) 62 MG/DL CALC LDL CHOL (test code = 2237) 98 MG/DL RISK RATIO LDL/HDL (test cod e = 2238) 1.58 RATIO Tomas CarvalhoHEMOGLOBIN [id number] 00:00:00* Test Item Value Reference Range Interpretation Comme nts HEMOGLOBIN A1c (test code = 55340) 5.5 % Tomas CarvalhoCOMPREHENSIVE METABOLIC [id number] 00:00:00* Test Item Value Reference Range Interpretation Comme nts GLUCOSE (test code = 2217) 76 MG/DL BUN (test code = 2208) 13 MG/DL CREATININE (test code = 2214) 0.69 MG/DL eGFR (2020 CKD-EPI) (test code = 63142) 117 ML/MIN/1.73 CALC BUN/CREAT (test code = [...] code = 2219) 11 U/L Tomas CarvalhoLIPID [id number] 00:00:00* Test Item Value Reference Range Interpretation Comme nts CHOLESTEROL (test code = 2210) 177 MG/DL TRIGLYCERIDES (test code = 2232) 83 MG/DL HDL CHOLESTEROL (test code = 2220) 62 MG/DL CALC LDL CHOL (test code = 2237) 98 MG/DL RISK RATIO LDL/HDL (test cod e = 2238) 1.58 RATIO Tomas CarvalhoHEMOGLOBIN [id number] 00:00:00* Test Item Value Reference Range Interpretation Comme evette HEMOGLOBIN A1c (test code = 94163) 5.5 % Tomas [id number] 01:52:00* Test Item Value Reference Range Interpretation Comme nts APPEARANCE (test code = 6812407088) Clear Clear COLOR (test code = 6385754522) Yellow Yellow PH (test code = 2078719765) 4.8-8.0 SP GRAVITY (test code = 1935628990) 1.003-1.030 GLU U QUAL (test code = 2244450047) Normal Normal BLOOD (test code = 7823015384) 1+ Negative A KETONES (test code = 1601331933) Negative Negative PROTEIN (test code = 2887-8) Negative Negative UROBILIN (test code = 8802210451) 2.0 mg/dL Normal A BILIRUBIN (test code = 0733733264) Negative Negative NITRITE (test code = 4201872114) Negative Negative [place]INE (test code = 3331009875) Negative Negative RBC/HPF (test code = 3480310004) See_Comment [Automated Easy Tempoa ge] The system which generated this result transmitted reference range: 0 - 3 HPF. The reference range was not used to interpret this result as normal/abnormal. WBC/HPF (test code = 3639399809) See_Comment [Automated Easy Tempoa ge] The system which generated this result transmitted reference range: 0 - 5 HPF. The reference range was not used to interpret this result as normal/abnormal. BACTERIA (test code = 3690939725) Few Negative A MUCOUS (test code = 0943821951) Slight Negative LPF A SQ EPITH (test code = 3970945439) HPF Lab Interpretation (test code = 43824-9) [facility]normal [facility]C)2020-12-19 01:28:00* Test Item Value Reference Range Interpretation Comme nts HGB A1C (test code = 4548-4) 5.0 % 4-6 JORDAN (test code = JORDAN) %A1C (NGSP) Interpretation (ADA)4.8-5.6 ? ? Normal or (Non-Diabetic Range)5.7-6.4 ? ? Increased Risk (Pre-Diabetic)>6.5 ?Diabetes Indicated Lab Interpretation (test code = 91529-4) Normal [facility] (92309)2020-12-19 01:25:00* Test Item Value Reference Range Interpretation Comme nts NA (test code = 1362728839) 136 mmol/L 135-145 K (test code = 4141390707) 3.7 mmol/L 3.5-5 CL (test code = 9200984368) 102 mmol/L 98-108 CO2 TOTAL (test code = 0744546561) 26 mmol/L 23-31 AGAP (test code = 9634425831) 2-16 BUN (test code = 0318799502) 12 mg/dL 7-23 GLUCOSE (test code = 2368538830) 121 mg/dL 70-110 H CREATININE (test code = 6886303521) 0.63 mg/dL 0.5-1.04 TOTAL BILI (test code = 0088231983) 0.4 mg/dL 0.1-1.1 CALCIUM (test code = 5610616978) 9.0 mg/dL 8.6-10.6 T PROTEIN (test code = 7797578909) 7.2 g/dL 6.3-8.2 ALBUMIN (test code = 8350816825) 4.3 g/dL 3.5-5 ALK PHOS (test code = 3755242652) 59 U/L 34-122 ALTv (test code = 1742-6) 13 U/L 5-35 AST(SGOT) (test code = 0530169994) 21 U/L 13-40 eGFR Calculation (Non-) (test code = 4449872267) mL/min/1.73m2 eGFR Calculation () (test code = 5644590678) mL/min/1.73m2 JORDAN (test code = JORDAN) Association [...] imaging tests). Lab Interpretation (test code = 17469-5) [facility]TOTAL CHOLESTEROL, TRIGLYCERIDES, HDL)2020-12-19 01:25:00* Test Item Value Reference Range Interpretation Comme nts CHOL (test code = 0750673770) 180 mg/dL 120-200 HDL (test code = 7915750711) 49 mg/dL >50 L HDLC RATIO (test code = 6294952500) See_Comment [Automated Wave Systems] The system which generated this result transmitted reference range: <=4.5. The reference range was not used to interpret this result as normal/abnormal. TRIG (test code = 2391630328) 62 mg/dL 30-170 LDL CHOL (test code = 24130-4) 119 mg/dL See_Comment [[employer]] The system which generated this result transmitted reference range: <=160. The reference range was not used to interpret this result as normal/abnormal. VLDL (test code = 6043115552) 12 mg/dL 5-60 Lab Interpretation (test code = 82805-1) Abnormal [facility] WITH [id number] 01:14:00* Test Item Value Reference Range Interpretation Comme nts WBC (test code = 6690-2) See_Comment [[employer]] The system which generated this result transmitted reference range: 4.30 - 11.10 10*3/?L. The reference range was not used to interpret this result as normal/abnormal. RBC (test code = 789-8) See_Comment [Automated Easy Tempoa ge] The system which generated this result [...] 32.7 g/dL 31.6-35.1 RDW-SD (test code = 02919-1) 44.1 fL 39-49.9 RDW-CV (test code = 788-0) 12.7 % 12-15.5 PLT (test code = 777-3) See_Comment [Automated Easy Tempo[employer] ge] The system which generated this result transmitted reference range: 166 - 358 10*3/?L. The reference range was not used to interpret this result as normal/abnormal. MPV (test code = 69953-9) 10.5 fL 9.5-12.9 NRBC/100 WBC (test code = 6013062226) See_Comment [Automated me ssage] The system which generated this result transmitted reference range: 0.0 - 10.0 /100 WBCs. The reference range was not used to interpret this result as normal/abnormal. NRBC x10^3 (test code = 2325190883) <0.01 See_Comment [Automated me ssage] The system which generated this result transmitted reference range: 10*3/?L. The reference range was not used to interpret this result as normal/abnormal. GRAN MAT (NEUT) % (test code = 770-8) 59.7 % IMM GRAN % (test code = 6946994413) 0.30 % LYMPH % (test code = 736-9) 29.5 % MONO % (test code = 5905-5) 4.9 % EOS % (test code = 713-8) 4.8 % BASO % (test code = 706-2) 0.8 % GRAN MAT x10^3(ANC) (test code = 1228403158) 4.73 10*3/uL 1.88-7.09 IMM GRAN x10^3 (test code = 2096582836) <0.03 0-0.06 LYMPH x10^3 (test code = 731-0) 2.33 10*3/uL 1.32-3.29 MONO x10^3 (test code = 742-7) 0.39 10*3/uL 0.33-0.92 EOS x10^3 (test code = 711-2) 0.38 10*3/uL 0.03-0.39 BASO x10^3 (test code = 704-7) 0.06 10*3/uL 0.01-0.07 [facility]-PCR (HIGH RISK) 2020-12-07 00:00:00* Test Item Value Reference Range Interpretation Comme nts SARS-CoV-2 INTERPRETATION (t est code = 42451) NEGATIVE SOURCE (test code = 34838) NOT SPECIFIED Tomas CarvalhoSARS-CoV-2 (COVID-19) by RT-PCR (HIGH RISK)2020-12-07 00:00:00* Test Item Value Reference Range Interpretation Comme nts SARS-CoV-2 INTERPRETATION (t est code = 38018) NEGATIVE SOURCE (test code = 65450) NOT SPECIFIED Tomas CarvalhoSARS-CoV-2 (COVID-19) by RT-PCR (HIGH RISK)2020-12-07 00:00:00* Test Item Value Reference Range Interpretation Comme nts SARS-CoV-2 INTERPRETATION (t est code = 61452) NEGATIVE SOURCE (test code = 11411) NOT SPECIFIED Tomas Velasquez, [id number] 00:00:00* Test Item Value Reference Range Interpretation Comme nts CULTURE, URINE (test code = 85359) SPECIMEN NUMBER: [id number] Tomas CarvalhoCULTURE, [id number] 00:00:00* Test Item Value Reference Range Interpretation Comme nts CULTURE, URINE (test code = 93841) SPECIMEN NUMBER: [id number] Tomas ChandlerLTURE, [id number] 00:00:00* Test Item Value Reference Range Interpretation Comme nts CULTURE, URINE (test code = 00749) SPECIMEN NUMBER: [id number] Tomas CarvalhoCOMPREHENSIVE METABOLIC [id number] 00:00:00* Test Item Value Reference Range Interpretation Comme nts GLUCOSE (test code = 2217) 78 MG/DL BUN (test code = 2208) 12 MG/DL CREATININE (test code = 2214) 0.55 MG/DL eGFR AMER. (test cod e = 13028) 147 ML/MIN/1.73 eGFR NON- AMER. (test code = 09033) 127 ML/MIN/1.73 CALC BUN/CREAT (test code = [...] = 2219) 10 U/L Tomas CarvalhoCBC W/AUTO [id number] 00:00:00* Test Item Value Reference Range Interpretation [...] (test code = 1015) 248 K/UL Tomas [id number] 00:00:00* Test Item Value Reference Range Interpretation Comme evette TSH (test code = 2821) 2.050 UIU/ML Tomas CarvalhoVITAMIN [id number] 00:00:00* Test Item Value Reference Range Interpretation Comme evette VITAMIN B-12 (test code = 2840) 748 PG/ML Tomas CarvalhoVITAMIN D, 25 [id number] 00:00:00* Test Item Value Reference Range Interpretation Comme [facility] VITAMIN D, 25 OH (test code = 4958) 20 NG/ML Tomas CarvalhoCOMPREHENSIVE METABOLIC [id number] 00:00:00* Test Item Value Reference Range Interpretation Comme nts GLUCOSE (test code = 2217) 78 MG/DL BUN (test code = 2208) 12 MG/DL CREATININE (test code = 2214) 0.55 MG/DL eGFR AMER. (test cod e = 97449) 147 ML/MIN/1.73 eGFR NON- AMER. (test code = 85452) 127 ML/MIN/1.73 CALC BUN/CREAT (test code = [...] = 2219) 10 U/L Tomas CarvalhoCBC W/AUTO [id number] 00:00:00* Test Item Value Reference Range Interpretation [...] (test code = 1015) 248 K/UL Tomas [id number] 00:00:00* Test Item Value Reference Range Interpretation Comme [facility] TSH (test code = 2821) 2.050 UIU/ML Tomas Cline DevenVITAMIN [id number] 00:00:00* Test Item Value Reference Range Interpretation Comme [facility] VITAMIN B-12 (test code = 2840) 748 PG/ML Tomas CarvalhoVITAMIN D, 25 [id number] 00:00:00* Test Item Value Reference Range Interpretation Comme [facility] VITAMIN D, 25 OH (test code = 4958) 20 NG/ML Tomas CarvalhoCOMPREHENSIVE METABOLIC [id number] 00:00:00* Test Item Value Reference Range Interpretation Comme nts GLUCOSE (test code = 2217) 78 MG/DL BUN (test code = 2208) 12 MG/DL CREATININE (test code = 2214) 0.55 MG/DL eGFR AMER. (test cod e = 65617) 147 ML/MIN/1.73 eGFR NON- AMER. (test code = 28285) 127 ML/MIN/1.73 CALC BUN/CREAT (test code = [...] = 2219) 10 U/L Tomas CarvalhoCBC W/AUTO [id number] 00:00:00* Test Item Value Reference Range Interpretation [...] (test code = 1015) 248 K/UL Tomas [id number] 00:00:00* Test Item Value Reference Range Interpretation Comme nts TSH (test code = 2821) 2.050 UIU/ML Tomas CarvalhoVITAMIN [id number] 00:00:00* Test Item Value Reference Range Interpretation Comme nts VITAMIN B-12 (test code = 2840) 748 PG/ML Tomas CarvalhoVITAMIN D, 25 [id number] 00:00:00* Test Item Value Reference Range Interpretation Comme nts VITAMIN D, 25 OH (test code = 4958) 20 NG/ML Tomas Cline AustinCHLAMYDIA, AMPLIFIED, [id number] 00:00:00* Test Item Value Reference Range Interpretation Comme nts CHLAMYDIA, TMA (test code = 60263) NEGATIVE Tomas Marlyn AustinGC, AMPLIFIED, [id number] 00:00:00* Test Item Value Reference Range Interpretation Comme nts GONORRHEA, TMA (test code = 16765) NEGATIVE Tomas Marlyn AustinCHLAMYDIA, AMPLIFIED, [id number] 00:00:00* Test Item Value Reference Range Interpretation Comme nts CHLAMYDIA, TMA (test code = 18913) NEGATIVE Tomas F AustinGC, AMPLIFIED, [id number] 00:00:00* Test Item Value Reference Range Interpretation Comme nts GONORRHEA, TMA (test code = 29234) NEGATIVE Tomas F AustinCHLAMYDIA, AMPLIFIED, [id number] 00:00:00* Test Item Value Reference Range Interpretation Comme nts CHLAMYDIA, TMA (test code = 62236) NEGATIVE Tomas F AustinGC, AMPLIFIED, [id number] 00:00:00* Test Item Value Reference Range Interpretation Comme nts GONORRHEA, TMA (test code = 59989) NEGATIVE Tomas F AustinGC AND CHLAMYDIA, AMPLIFIED, [id number] 00:00:00* Test Item Value Reference Range Interpretation Comme nts GONORRHEA, TMA (test code = 20193) NEGATIVE CHLAMYDIA, TMA (test code = 64162) POSITIVE Tomas F AustinGC AND CHLAMYDIA, AMPLIFIED, [id number] 00:00:00* Test Item Value Reference Range Interpretation Comme nts GONORRHEA, TMA (test code = 12203) NEGATIVE CHLAMYDIA, TMA (test code = 45185) POSITIVE Tomas CarvalhoGC AND CHLAMYDIA, AMPLIFIED, [id number] 00:00:00* Test Item Value Reference Range Interpretation Comme nts GONORRHEA, TMA (test code = 19842) NEGATIVE CHLAMYDIA, TMA (test code = 89089) POSITIVE Tomas CarvalhoVAGINAL PATHOGENS DNA [id number] 00:00:00* Test Item Value Reference Range Interpretation Comme nts BUTCH SPECIES (test code = 02637) NEGATIVE G. VAGINALIS (test code = 56863) POSITIVE T. VAGINALIS (test code = 72532) NEGATIVE Tomas CarvalhoVAGINAL PATHOGENS DNA [id number] 00:00:00* Test Item Value Reference Range Interpretation Comme nts BUTCH SPECIES (test code = 57957) NEGATIVE G. VAGINALIS (test code = 08476) POSITIVE T. VAGINALIS (test code = 69328) NEGATIVE Tomas CarvalhoVAGINAL PATHOGENS DNA [id number] 00:00:00* Test Item Value Reference Range Interpretation Comme nts BUTCH SPECIES (test code = 68001) NEGATIVE G. VAGINALIS (test code = 67869) POSITIVE T. VAGINALIS (test code = 26056) NEGATIVE Tomas Carvalho Notes Date/Time Note Provider Source [facility]2024-10-11 00:00:00 [facility]2024-09-30 00:00:00 Tomas Hollins [facility]"
[2025-02-08 11:27] LABS: Influenza A Ag Negative; Influenza B Ag Negative; SARS-CoV-2 Antigen Rapid Res Negative (Negative)
--- NOTE | 2025-02-08 12:56 | RAD REPORT ---
EXAMINATION: TWO VIEW CHEST XR CLINICAL INDICATION: Female, 34 years old. PRODUCTIVE COUGH TECHNIQUE: 2 view radiographs of the chest were performed. COMPARISON: 10/03/2024 FINDINGS: The lungs are well inflated and clear. No pneumothorax or sizable effusion. The heart is normal in si ze. Mediastinal contours are unremarkable. IMPRESSION: No acute or significant abnormalities.
--- NOTE | 2025-02-08 13:02 | EDPHYS ---
Physician Documentation [facility] Name: Dede Mcgee Age: 34 yrs Sex: Female : 1990 Arrival Date: 02/08/2025 Time: 10:24 Bed 19 Private MD: ED Physician Hector Mulligan HPI: 02/08 12:02 This 34 yrs old Black Female presents to ER via Ambulatory with complaints of Pelvic dr5 Pain, Vaginal Pain - iud problem, Abdominal Problem - LLQ. 12:02 Onset: The symptoms/episode began/occurred acutely. Patient is a 34-year-old female dr5 with history of anxiety, asthma, bronchitis, depression, hypertension, ovarian cysts coming in with cough, congestion, subjective fevers at home for the past 2 days. Patient also reports that she has an embedded IUD and is having a procedure scheduled for next week to have it removed. Patient reports she has had previous ovarian cysts which is a chronic problem.. Historical: - Allergies: 10:46 SHELLFISH; cm10 10:46 Singulair; cm10 - PMHx: 10:46 Anxiety; Asthma; Bronchitis; Depression; Hypertension; Ovarian cyst; cm10 - PSHx: 10:46 ovarian cyst; cm10 - Immunization history:: Adult Immunizations up to date. - Infectious Disease History:: Denies. - Social history:: Smoking status: unknown. ROS: 12:03 Constitutional: as per hpi dr5 Exam: 12:03 Constitutional: This is a well developed, well nourished patient who is awake, alert, dr5 and in no acute distress. Head/Face: Normocephalic, atraumatic. Eyes: Pupils equal round and reactive to light, extra-ocular motions intact. Lids and lashes normal. Conjunctiva and sclera are non-icteric and not injected. Cornea within normal limits. Periorbital areas with no swelling, redness, or edema. ENT: Nares patent. No nasal discharge, no septal abnormalities noted. Tympanic membranes are normal and external auditory canals are clear. Oropharynx with no redness, swelling, or masses, exudates, or evidence of obstruction, uvula midline. Mucous membranes moist. Chest/axilla: Normal chest wall appearance and motion. Nontender with no deformity. No lesions are appreciated. Cardiovascular: Regular rate and rhythm with a normal S1 and S2. Normal PMI, no JVD. No pulse deficits. Respiratory: Lungs have equal breath sounds bilaterally, clear to auscultation. No rales, rhonchi or wheezes noted. No increased work of breathing, no retractions or nasal flaring. Back: No spinal tenderness. No costovertebral tenderness. Full range of motion. Skin: Warm, dry with normal turgor. Normal color with no rashes, no lesions, and no evidence of cellulitis. MS/ Extremity: Pulses equal, no cyanosis. Neurovascular intact. Full, normal range of motion. Neuro: Awake and alert, GCS 15, oriented to person, place, time, and situation. Cranial nerves II-XII grossly intact. Motor strength 5/5 in all extremities. Sensory grossly intact. Cerebellar exam normal. Normal gait. Vital Signs: 10:47 BP 138 / 96; Pulse 69; Resp 15; Temp 98.5(O); Pulse Ox 98% ; Weight 83.91 kg; Height 5 cm10 ft. 9 in. ; 13:10 BP 132 / 90; Pulse 70; Resp 18 S; Pulse Ox 99% on R/A; kc6 10:47 Body Mass Index 27.32 (83.91 kg, 175.26 cm) cm10 MDM: 10:37 Medical Screening Exam initiated dr5 13:08 Differential diagnosis: viral Infection, bacterial infection, URI, pneumonia. Data dr5 reviewed: vital signs, nurses notes. Care significantly affected by the following chronic conditions: Hypertension. Care significantly affected by the following Social Determinants of Health: Poor access to healthcare and/or lack of insurance, Poor access to transportation, Problems related to employment. Counseling: I had a detailed discussion with the patient and/or guardian regarding the historical points, exam findings, and any diagnostic results supporting the discharge/admit diagnosis, the presence of at least one elevated blood pressure reading (>120/80) during this emergency department visit, radiology results, the need for outpatient follow up, for definitive care, a family practitioner, to return to the emergency department if symptoms worsen or persist or if there are any questions or concerns that arise at home. ED course: Patient is negative for COVID, flu, and strep, and chest x-ray is negative for bronchitis, or pneumonia. Antibiotics not indicated at this time. Will give patient a short course of steroids and cough medication to take at home. Increase fluids and alternate Tylenol Motrin as needed for pain or fever. Follow-up with primary care doctor this week.. 02/08 10:51 Order name: COVID-19 Ag + Flu A+B Ag; Complete Time: 11:49 dr5 02/08 10:51 Order name: Group A Streptococcus Rapid; Complete Time: 11:49 dr5 02/08 11:31 Order name: Throat Culture EDLA 02/08 10:51 Order name: Chest Pa And Lat (2 Views) XRAY; Complete Time: 12:57 dr5 Administered Medications: No medications were administered Disposition Summary: 02/08/25 13:01 Discharge Ordered Notes: Location: Home dr5 Condition: Stable dr5 Diagnosis - Acute upper respiratory infection, unspecified dr5 Followup: dr5 - With: Emergency Department - When: As needed - Reason: Worsening of condition Followup: dr5 - With: Private Physician - When: 1 - 2 days - Reason: Recheck today's complaints, Continuance of care, Re-evaluation by your physician Discharge Instructions: - Discharge Summary Sheet kc6 - Upper Respiratory Infection, Adult dr5 Forms: - Work release form kc6 - Medication Reconciliation Form dr5 - Patient Portal Instructions dr5 - Leadership Thank You Letter dr5 Prescriptions: - Medrol (Ruben) 4 mg Oral Tablets, Dose Pack - take 1 tablet ORAL route as directed - follow package instructions; 1 packet; dr5 Refills: 0, Product Selection Permitted - benzonatate 100 mg Oral capsule - take 1 capsule ORAL route 3 times per day As needed; 30 capsule; Refills: 0, dr5 Product Selection Permitted Signatures: Dispatcher [employer] Migdalia Mcbride RN RN cm10 Thomas Peters, JEISON-C SCREW EYE ASSEMBLER-[facility]5 Corrections: (The following items were deleted from the chart) 12:02 12:02 Patient is a 34-year-old female with history of anxiety, asthma, bronchitis, dr5 depression, hypertension, ovarian cysts coming in with cough, congestion, subjective fevers at home for the past. dr5 12:03 12:02 Patient is a 34-year-old female with history of anxiety, asthma, bronchitis, dr5 depression, hypertension, ovarian cysts coming in with cough, congestion, subjective fevers at home for the past 2 days.. dr5
--- NOTE | 2025-02-08 13:02 | ER ---
Nurse's Notes [facility] Name: Dede Mcgee Age: 34 yrs Sex: Female : 1990 Arrival Date: 02/08/2025 Time: 10:24 Bed 19 Private MD: Diagnosis: Acute upper respiratory infection, unspecified Presentation: 02/08 10:47 Chief complaint: Patient states: IUD is embedded and she is having pain. pt also cm10 reports nausea and cough. Coronavirus screen: Client denies travel out of the [place] in the last 14 days. Ebola Screen: Patient denies travel to an Ebola-affected area in the 21 days before illness onset. Initial Sepsis Screen: Does the patient meet any 2 criteria? No. Patient's initial sepsis screen is negative. Does the patient have a suspected source of infection? No. Patient's initial sepsis screen is negative. Risk Assessment: Do you want to hurt yourself or someone else? Patient reports no desire to harm self or others. Onset of symptoms was February 08, 2025. 10:47 Method Of Arrival: Ambulatory cm10 10:47 Acuity: JOSLYN 3 cm10 Triage Assessment: 10:46 General: Appears in no apparent distress. comfortable, Behavior is calm, cooperative. cm10 Neuro: No deficits noted. Level of Consciousness is awake, alert, obeys commands, Oriented to person, place, time, situation, Appropriate for age. Respiratory: No deficits noted. Airway is patent Respiratory effort is even, unlabored, Respiratory pattern is regular, symmetrical. Historical: - Allergies: 10:46 SHELLFISH; cm10 10:46 Singulair; cm10 - PMHx: 10:46 Anxiety; Asthma; Bronchitis; Depression; Hypertension; Ovarian cyst; cm10 - PSHx: 10:46 ovarian cyst; cm10 - Immunization history:: Adult Immunizations up to date. - Infectious Disease History:: Denies. - Social history:: Smoking status: unknown. Screenin:05 [facility] ED Fall Risk Assessment (Adult) History of falling in the last 3 months, kc6 including since admission No falls in past 3 months (0 pts) Confusion or Disorientation No (0 pts) Intoxicated or Sedated No (0 pts) Impaired Gait No (0 pts) Mobility Assist Device Used No (0 pt) Altered Elimination No (0 pt) Score/Fall Risk Level 0 - 2 = Low Risk Oriented to surroundings, Maintained a safe environment, Educated pt \T\ family on fall prevention, incl call for assistance when getting out of bed. Abuse screen: Denies threats or abuse. Denies injuries from another. Nutritional screening: No deficits noted. Tuberculosis screening: No symptoms or risk factors identified. Assessment: 11:05 General: Appears in no apparent distress. comfortable, well groomed, well developed, kc6 Behavior is calm, cooperative, appropriate for age. Pain: Complains of pain in abdomen and pelvis. Neuro: Level of Consciousness is awake, alert, obeys commands, Oriented to person, place, time, situation, Appropriate for age. Cardiovascular: Capillary refill < 3 seconds. Respiratory: Reports cough that is dry, Airway is patent Trachea midline Respiratory effort is even, unlabored, Respiratory pattern is regular, symmetrical. GI: Abdomen is flat, non-distended, Bowel sounds present X 4 quads. Abd is soft and non tender X 4 quads. Reports lower abdominal pain, cramping, nausea, Patient currently denies diarrhea, vomiting. : Reports cramping, pain in suprapubic area Denies burning with urination, vaginal bleeding. EENT: Reports nasal congestion. Derm: No signs and/or symptoms reported regarding the dermatologic system. Skin is intact, is healthy with good turgor, Skin is pink, warm \T\ dry. Musculoskeletal: No signs and/or symptoms reported regarding the musculoskeletal system. Circulation, motion, and sensation intact. Range of motion: intact in all extremities. Vital Signs: 10:47 BP 138 / 96; Pulse 69; Resp 15; Temp 98.5(O); Pulse Ox 98% ; Weight 83.91 kg; Height 5 cm10 ft. 9 in. ; 13:10 BP 132 / 90; Pulse 70; Resp 18 S; Pulse Ox 99% on R/A; kc6 10:47 Body Mass Index 27.32 (83.91 kg, 175.26 cm) cm10 ED Course: 10:28 Patient arrived in ED. am2 10:35 Mihai Iraheta, HEIDI is Primary Nurse. bp 10:36 Thomas Peters FNP-C is PHCP. dr5 10:36 Hector Mulligan MD is Attending Physician. dr5 10:46 Arm band placed on right wrist. Patient placed in an exam room, on a stretcher. cm10 10:48 Triage completed. cm10 10:54 Latasha Kruse, RN is Primary Nurse. kc6 11:04 Patient has correct armband on for positive identification. Bed in low position. Call kc6 light in reach. Side rails up X 1. Pulse ox on. NIBP on. Door closed. Noise minimized. Lights dimmed. Pillow given. Verbal reassurance given. 11:05 Patient maintains SpO2 saturation greater than 95% on room air. kc6 11:44 Chest Pa And Lat (2 Views) XRAY In Process Unspecified. EDMS 13:10 No provider procedures requiring assistance completed. Patient did not have IV access kc6 during this emergency room visit. Administered Medications: No medications were administered Medication: 13:10 VIS not applicable for this client. kc6 Outcome: 13:01 Discharge ordered by . dr5 13:10 Discharged to home ambulatory, kc6 13:10 Condition: good 13:10 Discharge instructions given to patient, Instructed on discharge instructions, follow up and referral plans. medication usage, Demonstrated understanding of instructions, follow-up care, medications, Prescriptions given X 2, 13:10 Patient left the ED. kc6 Signatures: Dispatcher [employer] EDNH Vanessa Kenny am2 Mihai Iraheta, HEIDI GORDON bp Latasha Kruse, RN RN kc6 Migdalia Russo RN RN cm10 Thomas Peters, BRASS POLISHER-C BRASS POLISHER-Cdr5
[2025-02-08 13:29] VITALS: TEMP 98.5
[2025-02-08 13:30] VITALS: BP 132/90; O2SAT 99
== END 2025-02-08 13:10 | disposition home or self-care (01) ==
LOC: ER 10:24
DX: J06.9 Acute upper respiratory infection, unspecified (principal); Z11.52 Encounter for screening for COVID-19
CPT/HCPCS: 36415; 71046; 87070; 87428; 99283

== ENCOUNTER 2025-02-19 22:42 | Emergency (ER) | payer SELFPAY ==
--- OUTSIDE RECORDS SUMMARY | 2025-02-19 22:47 | XMS REPORT | Continuity of Care Document ---
Author Name Unknown Address [address] [facility] [place] [address] [facility] Address [address] [facility] [place] [address] Care Team Providers Care Plaster Tender Name Role Phone JAREK KING Primary Care Physician Unava ilRADHA Sandoval Attending Clinician UnavailMAGGIE Aranda Attending Clinician Unavailable REMI DHALIWAL Attending Clinician Unavail able REMI DHALIWAL Attending Clinician Unavail Remi Jacobs MD Attending Clinician Visit, [facility] Nurse Attending Clinician Unavailable Doctor Unassigned, [place] Attending Clinician U Eve Busch DO Attending Clinician [phone] EVE GORE Attending Clinician Unavailable Payers Payer Name Policy Type Policy Number Effective Date Expirati on Date Source [facility] [id number] 2022 00:00:00 Problems Condition Name Condition Details Condition Category Status Onset Date Resolution Date Last Treatment Date Treating Clinician Comments Source Pain of round ligament complicati ng , antepartum Pain of round ligament complicati ng , antepartum Disease Active 2012-11 00:00: 00 [facility] High-risk High-risk Disease Active 2012-11 00:00: 00 Overview: ICD10 Diagnosis Term Portfolio Lead Utility [facility] Spotting affecting , antepartum Spotting affecting , antepartum Disease Active 2013-1 0-15 00:00: 00 Overview: ICD10 Diagnosis Term Portfolio Lead Utility [facility] Rubella immune Rubella immune Disease Active 2012-11 015 00:00: 00 [facility] Immune to varicella Immune to varicella Disease Active 2012-11 015 00:00: 00 [facility] Chlamydia trachomati s infection of lower genitourin venancio sites Chlamydia trachomati s infection of lower genitourin venancio sites Disease Active 2012-11 014 00:00: 00 Overview: Treated 3. SHWETHA in 3 weeks. [facility] Insufficie nt care Insufficie nt care Disease Active 2012-11 0 00:00: 00 [facility] Allergies, Adverse Reactions, Alerts [...] s Active Rash 2015-11 2- 00:00: 00 [facility] SEAFOOD/ FISH Food Active Rash 2015-11 2-03 00:00: 00 [facility] Singulai r Propensi ty to adverse reaction to drug Inactiv e 6-21 00:00: 00 Tomas Carvalho Monteluk ast Propensi ty to adverse reaction s Active Shortness of Breath 2012-11 0 00:00: 00 [facility] MONTELUK AST DRUG INGREDI Active SOB 2012-11 0 00:00: 00 [facility] Social History Social Habit Start Date Stop Date Quantity Comments Source Sex Assigned At [facility] Exposure to SARS-CoV-2 (event) Not sure [facility] Tobacco use and exposure 2020-12-28 00:00:00 2020-12-28 00:00:00 Never used [facility] Alcohol intake 2020-12-28 00:00:00 2020-12-28 00:00:00 Current non-drinker of alcohol (finding) [facility] Smoking Status Start Date Stop Date Source Never smoker [facility] Medications Ordered Medication Name Filled [...] mg Tomas Carvalho amlodipine 5 mg tablet 1-05 00:00: 00 Yes mg Tomas Carvalho TAKE 1 TABLET DAILY. 2022-11 00:00: 00 Yes 20 Tomas Carvalho TAKE 1 TABLET DAILY. 2022-11 00:00: 00 Yes 5 Tomas Carvalho TAKE 1 TABLET TWICE DAILY WITH FOOD. 2022-11 00:00: 00 03-17 00:00 :00 No [id number] Tomas Carvalho TAKE ONE (1) TABLET(S) BY [...] 12-19 00:00: 00 03-17 00:00 :00 No [id number] Tomas Carvalho INHALE 1 PUFF TWICE DAILY. RINSE MOUTH AFTER USE. 12-19 00:00: 00 03-17 00:00 :00 No 110 Tomas Carvalho TAKE 10 ML EVERY 6 TO 8 HOURS NEEDED FOR COUGH 12-19 00:00: 00 03-17 00:00 :00 No [id number] Tomas Carvalho Dose Unknown 12-08 00:00: 00 [...] 1mg Tomas Carvalho lisinopril 20 mg tablet 30 00:00: 00 Yes 1mg Tomas Carvalho Dose [...] 10 mg tablet 12-18 00:00: 00 Yes [id number] 10mg Take 1 tablet by mouth at bedtime. [facility] aspirin 81 mg chewable tablet 12-18 00:00: 00 Yes [id number] 81mg Take 1 tablet by mouth daily. [facility] lisinopril 10 mg tablet 08-21 00:00: 00 Yes 1mg Tomas Carvalho traMADOL (ULTRAM) 50 mg tablet 2015-11 00:00: 00 Yes 50mg Take 1 tablet by mouth every 6 (six) hours as needed for Pain (scale 4-6). Blaze Wise PA-C / Olivier Tapia MD BERTHA# [id number] DPS# [id number] x Lic.# [id number] I# [id number] [facility] Zithromax 500 mg tablet 05-19 00:00: 00 Yes 2mg Tomas Carvalho Mirena 20 mcg/24 hours (7 yrs) 52 mg intrauterin e device 05-16 00:00: 00 Yes 12 mL(600k /600k) Tomas Carvalho Cipro 500 mg tablet 05-16 00:00: 00 Yes 1mg Tomashaseeb Carvalho Vital Signs Vital Name Observation Time Observation Value Comments Abby robert Systolic blood pressure 2020-12-28 16:27:00 127 mm[Hg] [facility] Diastolic blood pressure 2020-12-28 16:27:00 80 mm[Hg] [facility] Oxygen saturation in Arterial blood by Pulse oximetry 2020-12-28 16:27:00 100 /min [facility] Systolic blood pressure 2020-12-19 01:00:00 144 mm[Hg] [facility] Diastolic blood pressure 2020-12-19 01:00:00 94 mm[Hg] [facility] Heart rate 2020-12-19 01:00:00 72 /min [facility] Respiratory rate 2020-12-19 01:00:00 17 /min [facility] Oxygen saturation in Arterial blood by Pulse oximetry 2020-12-19 01:00:00 100 /min [facility] Body temperature 2020-12-19 00:30:00 36.22 Geri [facility] Body weight 2020-12-19 00:30:00 83.915 kg [facility] BMI 2020-12-19 00:30:00 26.54 kg/m2 [facility] BP Systolic 2024-12-24 10:39:00 136 mm[Hg] Jason Carvalho BP Diastolic 2024-12-24 10:39:00 96 mm[Hg] Ron [...] Deven BP Diastolic 2022-12-08 15:08:00 73 mm[Hg] Orn phen F Deven Weight Measured 2022-12-08 15:08:00 [...] Source REFERRAL- REQUEST/RESPONSE 2020-12-24 06:01:00 Doctor Unassigned, [place] [facility] COMP. METABOLIC PANEL ([id number]) 2020-12-19 00:58:00 [facility] LIPID PANEL (48210)(TOTAL CHOLESTEROL, TRIGLYCERIDES, HDL) 2020-12-19 00:58:00 Singer [facility] CBC WITH DIFF 2020-12-19 00:58:[address] [facility] GLYCOSYLATED HEMOGLOBIN (A1C) 2020-12-19 00:58:00 Singer [facility] URINALYSIS 2020-12-19 00:57:00 Singer [facility] Encounters Start Date/Time End Date/Time Encounter Type Admission Type Attending [facility] Care Department Encounter ID Source 2025-02-19 11:09:44 2025-02-19 11:09:44 Outpatient SFA SFA [id number] Tomas Carvalho 2025-01-26 09:39:33 2025-01-26 09:39:33 Outpatient SFA SFA [id number] Tomas Carvalho 2025-01-09 15:28:59 2025-01-09 15:28:59 Outpatient SFA SFA [id number] Tomas Carvalho 2025-01-06 10:34:55 2025-01-06 10:34:55 Outpatient SFA SFA 210 Tomas Carvalho 2024-12-24 10:30:40 2024-12-24 10:30:40 Outpatient SFA SFA [id number] Tomas Carvalho 2024-12-24 00:00:00 2024-12-24 00:00:00 Outpatient Visit SFA [id number] Tomas Carvalho 2024-09-05 00:00:00 2024-09-05 00:00:00 Outpatient Visit SFA [id number] Tomas Cline Deven 2024-08-25 00:00:00 2024-08-25 00:00:00 Outpatient Visit [facility] [id number] Tomas Cline Deven 2024-02-12 13:23:03 2024-02-12 13:23:03 Outpatient SFA [facility] [id number] Tomas Cline [place] 2023-06-26 15:19:22 2023-06-26 15:19:22 Outpatient SFA [facility] [id number] Tomas Cline [place] 2023-04-06 09:00:00 2023-04-06 09:00:00 Outpatient RADHA MOLINA [facility] [id number] [facility] 2023-02-06 15:00:41 2023-02-06 15:00:41 Outpatient SFA [facility] [id number] Tomas Cline [place] 2023-01-01 14:43:21 2023-01-01 14:43:21 Outpatient SFA [facility] [id number] Tomas Cline [place] 2021-01-18 11:00:00 2021-01-18 11:00:00 Outpatient MAGGIE MAHMOOD [facility] [id number] [facility] 2021-01-04 10:40:00 2021-01-04 10:40:00 Outpatient REMI GALLO [facility] [id number] [facility] 2020-12-28 10:05:46 2020-12-28 14:30:27 Office Visit Remi Dhaliwal [facility] [id number] [facility] 2020-12-28 11:53:54 2020-12-28 12:04:03 Nurse Visit Visit, [facility] Nurse Remi Dhaliwal [facility] [id number] [facility] 2020-12-28 10:00:00 2020-12-28 10:00:00 Outpatient REMI GALLO [facility] [id number] [facility] 2020-12-24 00:00:00 2020-12-24 00:00:00 Orders Only Doctor Unassigned, [place] [facility] [id number] [facility] 2020-12-18 18:22:00 2020-12-18 21:05:00 Emergency Eve Gore [facility] [id number] [facility] 2020-12-18 18:22:00 2020-12-18 18:22:00 Emergency X EVE GORE [facility] ERT [id number] [facility] Results Test Description Test Time Test Comments Results Result Co mments Source COMPREHENSIVE METABOLIC [id number] 08:27:50* Test Item Value Reference Range Interpretation Comme nts GLUCOSE (test code = 2217) 85 MG/DL 70-99 BUN (test code = 2208) 10 MG/DL 6-20 CREATININE (test code = 2214) 0.79 MG/DL 0.60-1.30 eGFR (2020 CKD-EPI) (test code = 81351) 101 ML/MIN/1.73 >60 CALC BUN/CREAT (test code [...] code = 2206) 0.3 MG/DL See_Comment [Automated oh ssage] The system which generated this result transmitted reference range: <=1.2. The reference range was not used to interpret this result as normal/abnormal. ALKALINE PHOSPHATASE (test code = 2203) 51 U/L 40-114 AST (test code = 2217) 16 U/L 9-40 ALT (test code = 2219) 14 U/L 5-40 CBC W/AUTO DIFF WITH [id number] 02:29:45* Test Item Value Reference Range Interpretation [...] 0.00-0.10 ABS NUCLEATED RBCS (test code = 74911) 0.00 K/UL 0.00-0.11 CBC W/AUTO [id number] 00:00:00* Test Item Value Reference Range Interpretation [...] ABS NUCLEATED RBCS (test cod e = 55348) 0.00 K/UL Tomas CarvalhoCOMPREHENSIVE METABOLIC [id number] 00:00:00* Test Item Value Reference Range Interpretation Comme nts GLUCOSE (test code = 2217) 85 MG/DL BUN (test code = 2208) 10 MG/DL CREATININE (test code = 2214) 0.79 MG/DL eGFR (2020 CKD-EPI) (test code = 04344) 101 ML/MIN/1.73 CALC BUN/CREAT (test code = [...] (test code = 2219) 14 U/L Tomas CarvalhoTSH, THIRD [id number] 00:00:00* Test Item Value Reference Range Interpretation Comme nts TSH, THIRD GENERATION (test code = 2821) 2.960 UIU/ML Tomas CarvalhoCBC W/AUTO [id number] 00:00:00* Test Item Value Reference Range Interpretation [...] ABS NUCLEATED RBCS (test cod e = 84827) 0.00 K/UL Tomas CarvalhoCOMPREHENSIVE METABOLIC [id number] 00:00:00* Test Item Value Reference Range Interpretation Comme nts GLUCOSE (test code = 2217) 85 MG/DL BUN (test code = 2208) 10 MG/DL CREATININE (test code = 2214) 0.79 MG/DL eGFR (2020 CKD-EPI) (test code = 40384) 101 ML/MIN/1.73 CALC BUN/CREAT (test code = [...] (test code = 2219) 14 U/L Tomas PastranaH, THIRD [id number] 00:00:00* Test Item Value Reference Range Interpretation Comme nts TSH, THIRD GENERATION (test code = 2821) 2.960 UIU/ML Tomas CarvalhoCBC W/AUTO [id number] 00:00:00* Test Item Value Reference Range Interpretation [...] ABS NUCLEATED RBCS (test cod e = 73733) 0.00 K/UL Tomas CarvalhoCOMPREHENSIVE METABOLIC [id number] 00:00:00* Test Item Value Reference Range Interpretation Comme nts GLUCOSE (test code = 2217) 85 MG/DL BUN (test code = 2208) 10 MG/DL CREATININE (test code = 2214) 0.79 MG/DL eGFR (2020 CKD-EPI) (test code = 53850) 101 ML/MIN/1.73 CALC BUN/CREAT (test code = 2235) 13 RATIO SODIUM (test code = 2231) 142 MEQ/L POTASSIUM (test code = 2228) 5.0 MEQ/L CHLORIDE (test code = 2215) 105 MEQ/L CARBON DIOXIDE (test code = 220) 26 MEQ/L CALCIUM (test code = 2209) 9.5 MG/DL PROTEIN, TOTAL (test code = 222) 6.5 G/DL ALBUMIN (test code = 220) 4.4 G/DL CALC GLOBULIN (test code = 2240) 2.1 G/DL CALC A/G RATIO (test code = 2234) 2.1 RATIO BILIRUBIN, TOTAL (test code = 220) 0.3 MG/DL ALKALINE PHOSPHATASE (test code = 220) 51 U/L AST (test code = 221) 16 U/L ALT (test code = 221) 14 U/L Tomas CarvalhoH, THIRD [id number] 00:00:00* Test Item Value Reference Range Interpretation Comme nts TSH, THIRD GENERATION (test code = 2821) 2.960 UIU/ML Tomas CarvalhoCOMPREHENSIVE METABOLIC [id number] 06:03:27* Test Item Value Reference Range Interpretation Comme nts GLUCOSE (test code = 2217) 76 MG/DL 70-99 BUN (test code = 8) 13 MG/DL 6-20 CREATININE (test code = 2214) 0.69 MG/DL 0.60-1.30 eGFR (2020 CKD-EPI) (test code = 04560) 117 ML/MIN/1.73 >60 CALC BUN/CREAT (test code [...] 6.8 G/DL 6.1-8.3 ALBUMIN (test code = 220) 4.6 G/DL 3.5-5.2 CALC GLOBULIN (test code [...] code = 2219) 11 U/L 5-40 LIPID [id number] 06:03:27* Test Item Value Reference Range Interpretation [...] SPECIMENS. FOR MOREINFORMATION, SEE CLIENT ANNOUNCEMENT AT [email or web address] [email or web address] RATIO LDL/HDL (test code = 2238) 1.58 RATIO <3.22 HEMOGLOBIN [id number] 03:25:35* Test Item Value Reference Range Interpretation Comme nts HEMOGLOBIN A1c (test code = 58623) 5.5 % 4.2-5.6 [facility] has impo rtant pathology staff changes effective 01/24/2023. New pathology staff will provide uninterrupted, excellent patient care and clinical consultation. See URL: [email or web address]. UNLESS OTHERWISE INDICATED, ALL TESTING PERFORMED AT [facility] [address] [place] [address] CLIA: [id number], CAP: [id number] COMPREHENSIVE METABOLIC [id number] 00:00:00* Test Item Value Reference Range Interpretation Comme nts GLUCOSE (test code = 2217) 76 MG/DL BUN (test code = 2208) 13 MG/DL CREATININE (test code = 2214) 0.69 MG/DL eGFR (2020 CKD-EPI) (test code = 44216) 117 ML/MIN/1.73 CALC BUN/CREAT (test code = [...] code = 2219) 11 U/L Tomas Cline AustinLIPID [id number] 00:00:00* Test Item Value Reference Range Interpretation Comme nts CHOLESTEROL (test code = 2210) 177 MG/DL TRIGLYCERIDES (test code = 2232) 83 MG/DL HDL CHOLESTEROL (test code = 2220) 62 MG/DL CALC LDL CHOL (test code = 2237) 98 MG/DL RISK RATIO LDL/HDL (test cod e = 2238) 1.58 RATIO Tomas CarvalhoHEMOGLOBIN [id number] 00:00:00* Test Item Value Reference Range Interpretation Comme nts HEMOGLOBIN A1c (test code = 52035) 5.5 % Tomas CarvalhoCOMPREHENSIVE METABOLIC [id number] 00:00:00* Test Item Value Reference Range Interpretation Comme nts GLUCOSE (test code = 2217) 76 MG/DL BUN (test code = 2208) 13 MG/DL CREATININE (test code = 2214) 0.69 MG/DL eGFR (2020 CKD-EPI) (test code = 62117) 117 ML/MIN/1.73 CALC BUN/CREAT (test code = [...] code = 2219) 11 U/L Tomas CarvalhoLIPID [id number] 00:00:00* Test Item Value Reference Range Interpretation Comme nts CHOLESTEROL (test code = 2210) 177 MG/DL TRIGLYCERIDES (test code = 2232) 83 MG/DL HDL CHOLESTEROL (test code = 2220) 62 MG/DL CALC LDL CHOL (test code = 2237) 98 MG/DL RISK RATIO LDL/HDL (test cod e = 2238) 1.58 RATIO Tomas CarvalhoHEMOGLOBIN [id number] 00:00:00* Test Item Value Reference Range Interpretation Comme nts HEMOGLOBIN A1c (test code = 65327) 5.5 % Tomas CarvalhoCOMPREHENSIVE METABOLIC [id number] 00:00:00* Test Item Value Reference Range Interpretation Comme nts GLUCOSE (test code = 2217) 76 MG/DL BUN (test code = 8) 13 MG/DL CREATININE (test code = 2214) 0.69 MG/DL eGFR (2020 CKD-EPI) (test code = 75875) 117 ML/MIN/1.73 CALC BUN/CREAT (test code = [...] code = 2219) 11 U/L Tomas CarvalhoLIPID [id number] 00:00:00* Test Item Value Reference Range Interpretation Comme nts CHOLESTEROL (test code = 2210) 177 MG/DL TRIGLYCERIDES (test code = 2232) 83 MG/DL HDL CHOLESTEROL (test code = 2220) 62 MG/DL CALC LDL CHOL (test code = 2237) 98 MG/DL RISK RATIO LDL/HDL (test cod e = 2238) 1.58 RATIO Tomas CarvalhoHEMOGLOBIN [id number] 00:00:00* Test Item Value Reference Range Interpretation Comme nts HEMOGLOBIN A1c (test code = 59234) 5.5 % Tomas [id number] 01:52:00* Test Item Value Reference Range Interpretation Comme nts APPEARANCE (test code = 3977078880) Clear Clear COLOR (test code = 2996921155) Yellow Yellow PH (test code = 1767229899) 4.8-8.0 SP GRAVITY (test code = 6249596478) 1.003-1.030 GLU U QUAL (test code = 5093708033) Normal Normal BLOOD (test code = 8636531957) 1+ Negative A KETONES (test code = 6896449605) Negative Negative PROTEIN (test code = 2887-8) Negative Negative UROBILIN (test code = 8099127217) 2.0 mg/dL Normal A BILIRUBIN (test code = 9349876414) Negative Negative NITRITE (test code = 8666411130) Negative Negative [place] REGINE (test code = 1327542604) Negative Negative RBC/HPF (test code = 2384101846) See_Comment [Automated CORP80a ge] The system which generated this result transmitted reference range: 0 - 3 HPF. The reference range was not used to interpret this result as normal/abnormal. WBC/HPF (test code = 6458107995) See_Comment [Automated CORP80a ge] The system which generated this result transmitted reference range: 0 - 5 HPF. The reference range was not used to interpret this result as normal/abnormal. BACTERIA (test code = 1319376284) Few Negative A MUCOUS (test code = 0882555370) Slight Negative LPF A SQ EPITH (test code = 1061811017) HPF Lab Interpretation (test code = 81466-3) [facility]2020-12-19 01:28:00* Test Item Value Reference Range Interpretation Comme nts HGB A1C (test code = 4548-4) 5.0 % 4-6 JORDAN (test code = JORDAN) %A1C (NGSP) Interpretation (ADA)4.8-5.6 ? ? Normal or (Non-Diabetic Range)5.7-6.4 ? ? Increased Risk (Pre-Diabetic)>6.5 ?Diabetes Indicated Lab Interpretation (test code = 69720-0) [facility]44041[facility]2020-12-19 01:25:00* Test Item Value Reference Range Interpretation Comme nts NA (test code = 9982373795) 136 mmol/L 135-145 K (test code = 5708632702) 3.7 mmol/L 3.5-5 CL (test code = 5025950357) 102 mmol/L 98-108 CO2 TOTAL (test code = 0920926059) 26 mmol/L 23-31 AGAP (test code = 5862026849) 2-16 BUN (test code = 7019163557) 12 mg/dL 7-23 GLUCOSE (test code = 6359377547) 121 mg/dL 70-110 H CREATININE (test code = 9361986713) 0.63 mg/dL 0.5-1.04 TOTAL BILI (test code = 8338648944) 0.4 mg/dL 0.1-1.1 CALCIUM (test code = 3603968800) 9.0 mg/dL 8.6-10.6 T PROTEIN (test code = 3509231615) 7.2 g/dL 6.3-8.2 ALBUMIN (test code = 9201699685) 4.3 g/dL 3.5-5 ALK PHOS (test code = 8178070840) 59 U/L 34-122 ALTv (test code = 1742-6) 13 U/L 5-35 AST(SGOT) (test code = 0212299765) 21 U/L 13-40 eGFR Calculation (Non-) (test code = 3245692733) mL/min/1.73m2 eGFR Calculation () (test code = 8803178092) mL/min/1.73m2 JORDAN (test code = JORDAN) Association [...] imaging tests). Lab Interpretation (test code = 69583-1) [facility]TOTAL CHOLESTEROL, TRIGLYCERIDES, HDL)2020-12-19 01:25:00* Test Item Value Reference Range Interpretation Comme nts CHOL (test code = 8696058039) 180 mg/dL 120-200 HDL (test code = 6013462252) 49 mg/dL >50 L HDLC RATIO (test code = 2664658851) See_Comment [Automated messa ge] The system which generated this result transmitted reference range: <=4.5. The reference range was not used to interpret this result as normal/abnormal. TRIG (test code = 3081961509) 62 mg/dL 30-170 LDL CHOL (test code = 76934-5) 119 mg/dL See_Comment [Automated messa ge] The system which generated this result transmitted reference range: <=160. The reference range was not used to interpret this result as normal/abnormal. VLDL (test code = 1809342824) 12 mg/dL 5-60 Lab Interpretation (test code = 05384-4) Abnormal [facility] WITH [id number] 01:14:00* Test Item Value Reference Range Interpretation Comme nts WBC (test code = 6690-2) See_Comment [Automated messa ge] The system which generated this result transmitted reference range: 4.30 - 11.10 10*3/?L. The reference range was not used to interpret this result as normal/abnormal. RBC (test code = 789-8) See_Comment [Automated CORP80a ge] The system which generated this result [...] 32.7 g/dL 31.6-35.1 RDW-SD (test code = 47476-2) 44.1 fL 39-49.9 RDW-CV (test code = 788-0) 12.7 % 12-15.5 PLT (test code = 777-3) See_Comment [Automated CORP80a ge] The system which generated this result transmitted reference range: 166 - 358 10*3/?L. The reference range was not used to interpret this result as normal/abnormal. MPV (test code = 91000-7) 10.5 fL 9.5-12.9 NRBC/100 WBC (test code = 5157921580) See_Comment [Automated me ssage] The system which generated this result transmitted reference range: 0.0 - 10.0 /100 WBCs. The reference range was not used to interpret this result as normal/abnormal. NRBC x10^3 (test code = 7766856509) <0.01 See_Comment [Automated me ssage] The system which generated this result transmitted reference range: 10*3/?L. The reference range was not used to interpret this result as normal/abnormal. GRAN MAT (NEUT) % (test code = 770-8) 59.7 % IMM GRAN % (test code = 1080514905) 0.30 % LYMPH % (test code = 736-9) 29.5 % MONO % (test code = 5905-5) 4.9 % EOS % (test code = 713-8) 4.8 % BASO % (test code = 706-2) 0.8 % GRAN MAT x10^3(ANC) (test code = 2518949242) 4.73 10*3/uL 1.88-7.09 IMM GRAN x10^3 (test code = 8488488014) <0.03 0-0.06 LYMPH x10^3 (test code = 731-0) 2.33 10*3/uL 1.32-3.29 MONO x10^3 (test code = 742-7) 0.39 10*3/uL 0.33-0.92 EOS x10^3 (test code = 711-2) 0.38 10*3/uL 0.03-0.39 BASO x10^3 (test code = 704-7) 0.06 10*3/uL 0.01-0.07 [facility] (HIGH RISK) 2020-12-07 00:00:00* Test Item Value Reference Range Interpretation Comme nts SARS-CoV-2 INTERPRETATION (t est code = 19621) NEGATIVE SOURCE (test code = 60494) NOT SPECIFIED Tomas CarvalhoSARS-CoV-2 (COVID-19) by RT-PCR (HIGH RISK)2020-12-07 00:00:00* Test Item Value Reference Range Interpretation Comme nts SARS-CoV-2 INTERPRETATION (t est code = 52951) NEGATIVE SOURCE (test code = 90744) NOT SPECIFIED Tomas CarvalhoSARS-CoV-2 (COVID-19) by RT-PCR (HIGH RISK)2020-12-07 00:00:00* Test Item Value Reference Range Interpretation Comme nts SARS-CoV-2 INTERPRETATION (t est code = 36271) NEGATIVE SOURCE (test code = 31578) NOT SPECIFIED Tomas CarvalhoCULTURE, [id number] 00:00:00* Test Item Value Reference Range Interpretation Comme nts CULTURE, URINE (test code = 27366) SPECIMEN NUMBER: [id number] Tomas CarvalhoCULTURE, [id number] 00:00:00* Test Item Value Reference Range Interpretation Comme nts CULTURE, URINE (test code = 33993) SPECIMEN NUMBER: [id number] Tomas CarvalhoCULTURE, [id number] 00:00:00* Test Item Value Reference Range Interpretation Comme nts CULTURE, URINE (test code = 96806) SPECIMEN NUMBER: [id number] Tomas CarvalhoCOMPREHENSIVE METABOLIC [id number] 00:00:00* Test Item Value Reference Range Interpretation Comme nts GLUCOSE (test code = 2217) 78 MG/DL BUN (test code = 2208) 12 MG/DL CREATININE (test code = 2214) 0.55 MG/DL eGFR AMER. (test cod e = 93876) 147 ML/MIN/1.73 eGFR NON- AMER. (test code = 48696) 127 ML/MIN/1.73 CALC BUN/CREAT (test code = [...] = 2219) 10 U/L Tomas CarvalhoCBC W/AUTO [id number] 00:00:00* Test Item Value Reference Range Interpretation [...] (test code = 1015) 248 K/UL Tomas [id number] 00:00:00* Test Item Value Reference Range Interpretation Comme [facility] [place] [facility] (test code = 2821) 2.050 UIU/ML Tomas CarvalhoVITAMIN [id number] 00:00:00* Test Item Value Reference Range Interpretation Comme [facility] VITAMIN B-12 (test code = 2840) 748 PG/ML Tomas CarvalhoVITAMIN D, 25 [id number] 00:00:00* Test Item Value Reference Range Interpretation Comme [facility] VITAMIN D, 25 [place] (test code = 4958) 20 NG/ML Tomas CarvalhoCOMPREHENSIVE METABOLIC [id number] 00:00:00* Test Item Value Reference Range Interpretation Comme nts GLUCOSE (test code = 2217) 78 MG/DL BUN (test code = 2208) 12 MG/DL CREATININE (test code = 2214) 0.55 MG/DL eGFR AMER. (test cod e = 30706) 147 ML/MIN/1.73 eGFR NON- AMER. (test code = 43337) 127 ML/MIN/1.73 CALC BUN/CREAT (test code = [...] (test code = 2219) 10 U/L Tomas Marlyn DevenCBC W/AUTO [id number] 00:00:00* Test Item Value Reference Range Interpretation Comme [facility] WBC (test code = 1001) 4.9 K/UL [...] (test code = 1015) 248 K/UL Tomas Marlyn [id number] 00:00:00* Test Item Value Reference Range Interpretation Comme [facility] TSH (test code = 2821) 2.050 UIU/ML Tomas CarvalhoVITAMIN [id number] 00:00:00* Test Item Value Reference Range Interpretation Comme [facility] VITAMIN B-12 (test code = 2840) 748 PG/ML Tomas CarvalhoVITAMIN D, 25 [id number] 00:00:00* Test Item Value Reference Range Interpretation Comme nts VITAMIN D, 25 OH (test code = 4958) 20 NG/ML Tomas CarvalhoCOMPREHENSIVE METABOLIC [id number] 00:00:00* Test Item Value Reference Range Interpretation Comme nts GLUCOSE (test code = 2217) 78 MG/DL BUN (test code = 2208) 12 MG/DL CREATININE (test code = 2214) 0.55 MG/DL eGFR AMER. (test cod e = 29129) 147 ML/MIN/1.73 eGFR NON- AMER. (test code = 60553) 127 ML/MIN/1.73 CALC BUN/CREAT (test code = [...] = 2219) 10 U/L Tomas CarvalhoCBC W/AUTO [id number] 00:00:00* Test Item Value Reference Range Interpretation [...] (test code = 1015) 248 K/UL Tomas [id number] 00:00:00* Test Item Value Reference Range Interpretation Comme nts TSH (test code = 2821) 2.050 UIU/ML Tomas CarvalhoVITAMIN [id number] 00:00:00* Test Item Value Reference Range Interpretation Comme nts VITAMIN B-12 (test code = 2840) 748 PG/ML Tomas CarvalhoVITAMIN D, 25 [id number] 00:00:00* Test Item Value Reference Range Interpretation Comme nts VITAMIN D, 25 OH (test code = 4958) 20 NG/ML Tomas CarvalhoCHLAMYDIA, AMPLIFIED, [id number] 00:00:00* Test Item Value Reference Range Interpretation Comme nts CHLAMYDIA, TMA (test code = 46941) NEGATIVE Tomas Clnie AustinGC, AMPLIFIED, [id number] 00:00:00* Test Item Value Reference Range Interpretation Comme nts GONORRHEA, TMA (test code = 01819) NEGATIVE Tomas Marlyn AustinCHLAMYDIA, AMPLIFIED, [id number] 00:00:00* Test Item Value Reference Range Interpretation Comme nts CHLAMYDIA, TMA (test code = 80771) NEGATIVE Tomas Cline AustinGC, AMPLIFIED, [id number] 00:00:00* Test Item Value Reference Range Interpretation Comme nts GONORRHEA, TMA (test code = 96292) NEGATIVE Tomas Cline AustinCHLAMYDIA, AMPLIFIED, [id number] 00:00:00* Test Item Value Reference Range Interpretation Comme nts CHLAMYDIA, TMA (test code = 23696) NEGATIVE Tomas Marlyn AustinGC, AMPLIFIED, [id number] 00:00:00* Test Item Value Reference Range Interpretation Comme nts GONORRHEA, TMA (test code = 91917) NEGATIVE Tomas F AustinGC AND CHLAMYDIA, AMPLIFIED, [id number] 00:00:00* Test Item Value Reference Range Interpretation Comme nts GONORRHEA, TMA (test code = 62648) NEGATIVE CHLAMYDIA, TMA (test code = 13808) POSITIVE Tomas CarvalhoGC AND CHLAMYDIA, AMPLIFIED, [id number] 00:00:00* Test Item Value Reference Range Interpretation Comme nts GONORRHEA, TMA (test code = 40841) NEGATIVE CHLAMYDIA, TMA (test code = 22928) POSITIVE Tomas CarvalhoGC AND CHLAMYDIA, AMPLIFIED, [id number] 00:00:00* Test Item Value Reference Range Interpretation Comme nts GONORRHEA, TMA (test code = 70786) NEGATIVE CHLAMYDIA, TMA (test code = 74566) POSITIVE Tomas Cline AustinVAGINAL PATHOGENS DNA [id number] 00:00:00* Test Item Value Reference Range Interpretation Comme nts BUTCH SPECIES (test code = 63167) NEGATIVE G. VAGINALIS (test code = 23358) POSITIVE T. VAGINALIS (test code = 56928) NEGATIVE Tomas Cline AustinVAGINAL PATHOGENS DNA [id number] 00:00:00* Test Item Value Reference Range Interpretation Comme nts BUTCH SPECIES (test code = 49346) NEGATIVE G. VAGINALIS (test code = 59382) POSITIVE T. VAGINALIS (test code = 97270) NEGATIVE Tomas Cline AustinVAGINAL PATHOGENS DNA [id number] 00:00:00* Test Item Value Reference Range Interpretation Comme nts BUTCH SPECIES (test code = 57626) NEGATIVE G. VAGINALIS (test code = 77057) POSITIVE T. VAGINALIS (test code = 42662) NEGATIVE Tomas Marlyn Deven Notes Date/Time Note Provider Source Tomas Hollins [facility]2024-10-11 00:00:00 Tomas Hollins [facility]2024-09-30 00:00:00 Tomas Hollins [facility]"
[2025-02-19] MEDS ORDERED: DIPHENHYDRAMINE 50 MG/ML VIAL ONE (22:57)
[2025-02-19] MEDS ORDERED: NA CHLORIDE 0.9% 1,000 ML ONE (22:58)
[2025-02-19] MEDS ORDERED: METOCLOPRAMIDE 10 MG/2mL INJ ONE (22:58)
[2025-02-19 23:14] LABS: Absolute Basophils 0.1 K/uL (0-0.5); Absolute Eosinophils 0.6 K/uL (0-0.5); Absolute Monocytes 0.9 K/uL (0.1-1.3); Absolute Neutrophil 5.7 K/uL (1.8-8.0); Eosinophils % 4.6 % (0-4.4); Hematocrit 40.3 % (36.0-45.0); Hemoglobin 13.7 g/dL (12.0-15.0); MCH 31.2 pg (27.0-35.0); MCHC 33.9 g/dL (32.0-36.0); MCV 91.9 fL (80-100); Neutrophils % 46.4 % (41.7-73.7); Platelets 294 thou/uL (152-406); RBC Red Blood Cell Count 4.39 M/uL (3.86-4.86); Red Cell Distribution Width 13.6 % (12.1-15.2)
[2025-02-19 23:30] LABS: ALT/SGPT 23 U/L (13-56); AST/SGOT 14 U/L (15-37); Albumin 3.8 g/dL (3.4-5.0); Alkaline Phosphatase 64 U/L (45-117); BUN Blood Urea Nitrogen 16 mg/dL (7-18); Bicarbonate 23 mEq/L (21-32); Bilirubin Total 0.3 mg/dL (0.2-1.0); Globulin 3.9 g/dL (2.3-3.5); Glomerular Filtration Rate 98 ml/min (=/>90); Glucose Level 148 mg/dL (74-106); Protein, Total 7.7 g/dL (6.4-8.2); Sodium Level 138 mEq/L (136-145)
[2025-02-19 23:38] LABS: PT Prothrombin Time 12.1 SECONDS (10-13.0); Protime INR 1.06
[2025-02-19 23:49] LABS: Bilirubin Direct < 0.2 mg/dL (0-0.2); Bilirubin Indirect, Calculated 0.1 mg/dL (0.2-0.8)
[2025-02-20] MEDS ORDERED: LORazepam 2 MG/ML VIAL ONE (00:05)
[2025-02-20 00:37] LABS: Sqamous Epithelial <5 /HPF (None Seen); Urine Bacteria None Seen /HPF (<20); Urine Bilirubin NEGATIVE (Negative); Urine Blood Negative (Negative); Urine Clarity Turbid (Clear); Urine Color Light-Yellow (Yellow); Urine Culture Reflex Order NOT NEEDED; Urine Glucose NEGATIVE (Negative); Urine Ketones NEGATIVE (Negative); Urine Microscopic Reflex YN ORDER UMIC; Urine Mucus Slight /HPF (None Seen); Urine Nitrite NEGATIVE (Negative); Urine Protein NEGATIVE (Negative); Urine RBC <5 /HPF (None Seen); Urine Urobilinogen Normal (Normal); Urine WBC <5 /HPF (<5)
[2025-02-20 00:42] LABS: Barbiturates NEGATIVE (NEGATIVE); Benzodiazepines NEGATIVE (NEGATIVE); Cocaine NEGATIVE (NEGATIVE); METHAMPHETAM NEGATIVE (NEGATIVE); Methadone NEGATIVE (NEGATIVE); Opiates NEGATIVE (NEGATIVE); Phencyclidine NEGATIVE (NEGATIVE); THC Cannibis POSITIVE (NEGATIVE)
[2025-02-20] MEDS ORDERED: POTASSIUM 25 MEQ EFFERV TAB ONE (00:57)
--- NOTE | 2025-02-20 01:03 | EDPHYS ---
Physician Documentation [facility] Name: Dede Mcgee Age: 34 yrs Sex: Female : 1990 Arrival Date: 02/19/2025 Time: 22:42 Bed 6 Private MD: ED Physician Balta Hummel HPI: 02/19 22:55 This 34 yrs old Black Female presents to ER via Ambulatory with complaints of Anxiety, cp Irregular Pulse, Recreational Drug Use (Edibles). 22:55 The patient presents to the emergency department with nausea, with "dry heaves", cp vomiting, that is continuous. 22:55 Onset: The symptoms/episode began/occurred just prior to arrival, after ingestion of cp THC gummy. 22:55 Associated signs and symptoms: Pertinent negatives: constipation, diarrhea, fever, cp chest pain. Severity of symptoms: in the emergency department the symptoms are unchanged despite home interventions. RADIO COMMENTATOR: 22:58 LMP N/A - control method, Not lg3 Historical: - Allergies: 22:58 SHELLFISH; lg3 22:58 Singulair; lg3 - PMHx: 22:58 Anxiety; Asthma; Bronchitis; Depression; Hypertension; Ovarian cyst; lg3 - PSHx: 22:58 ovarian cyst; lg3 - Immunization history:: Adult Immunizations up to date. - Infectious Disease History:: Denies. - Social history:: Smoking status: Patient denies any tobacco usage or history of. Patient uses alcohol, occasionally. ROS: 23:00 Constitutional: Negative for body aches, chills, fever, cp 23:00 ENT: Negative for drainage from ear(s), ear pain, sore throat, difficulty swallowing, cp difficulty handling secretions, 23:00 Cardiovascular: Negative for chest pain, edema, palpitations, 23:00 Respiratory: Negative for shortness of breath, wheezing, 23:00 Abdomen/GI: Positive for nausea and vomiting, Negative for abdominal pain, diarrhea, constipation, Exam: 23:05 Constitutional: The patient appears in no acute distress, alert, awake, cp non-diaphoretic, non-toxic, well developed, well nourished, uncomfortable, 23:05 Head/Face: Normocephalic, atraumatic. cp 23:05 Eyes: Periorbital structures: appear normal, Pupils: equal, round, and reactive to light and accomodation, Extraocular movements: intact throughout, Conjunctiva: normal, no exudate, no injection, Sclera: no appreciated abnormality, Lids and lashes: appear normal, bilaterally, 23:05 ENT: External ear(s): are unremarkable, Nose: is normal, Mouth: Lips: moist, Oral mucosa: moist, Posterior pharynx: Airway: no evidence of obstruction, patent, 23:05 Neck: ROM/movement: is normal, is supple, without pain, no range of motions limitations, no meningismus, 23:05 Chest/axilla: Inspection: normal, 23:05 Cardiovascular: Rate: tachycardic, Rhythm: regular, 23:05 Respiratory: the patient does not display signs of respiratory distress, Respirations: normal, no use of accessory muscles, no retractions, labored breathing, is not present, Breath sounds: are clear throughout, no decreased breath sounds, no stridor, no wheezing, 23:05 Abdomen/GI: Inspection: abdomen appears normal, Palpation: soft, in all quadrants, mild abdominal tenderness, in the right upper quadrant and left upper quadrant, 23:05 Neuro: Orientation: to person, place \\T\\ time. Mentation: is normal, Motor: moves all fours, strength is normal, 02/20 00:10 ECG was reviewed by the Attending Physician. cp Vital Signs: 02/19 22:59 BP 136 / 90; Pulse 108; Resp 20; Temp 97.6(T); Pulse Ox 100% on R/A; ha1 02/20 00:09 BP 120 / 92; Pulse 84; Resp 18; Temp 97.6; Pulse Ox 100% ; Pain 0/10; bm8 01:15 BP 134 / 79; Pulse 90; Resp 18; Temp 97.6; Pulse Ox 100% ; Pain 0/10; bm8 02/20 00:09 Pain Scale: Adult bm8 01:15 Pain Scale: Adult bm8 Kyra Coma Score: 02/19 23:12 Eye Response: spontaneous(4). Motor Response: obeys commands(6). Verbal Response: bm8 oriented(5). Total: 15. 02/20 00:09 Eye Response: spontaneous(4). Motor Response: obeys commands(6). Verbal Response: bm8 oriented(5). Total: 15. 01:15 Eye Response: spontaneous(4). Motor Response: obeys commands(6). Verbal Response: bm8 oriented(5). Total: 15. MDM: 02/19 22:49 Medical Screening Exam initiated 02/20 01:02 Data reviewed: vital signs, nurses notes, lab test result(s), EKG, and as a result, I cp will discharge patient. 01:02 Differential diagnosis: gastritis, cholecystitis, pancreatitis, appendicitis, viral cp gastroenteritis, gastroenteritis. I considered the following discharge prescriptions or medication management in the emergency department Medications were administered in the Emergency Department. See MAR. Independent interpretation of the following test(s) in the Emergency Department EKG: See my EKG interpretation above. Care significantly affected by the following chronic conditions: Hypertension. Counseling: I had a detailed discussion with the patient and/or guardian regarding the historical points, exam findings, and any diagnostic results supporting the discharge/admit diagnosis, lab results, to return to the emergency department if symptoms worsen or persist or if there are any questions or concerns that arise at home. Response to treatment: the patient's symptoms have markedly improved after treatment, and as a result, I will discharge patient. 02/19 22:55 Order name: Basic Metabolic Panel; Complete Time: 23:53 02/19 23:53 Interpretation: Normal except: K 3.0; GLUC 148. 02/19 22:55 Order name: CBC with Diff; Complete Time: 23:53 02/19 23:53 Interpretation: Normal except: WBC 12.20; EOSINOPHIL % 4.6; LYMA 5.0; EOSA 0.6. 02/19 22:55 Order name: ETOH Level; Complete Time: 00:43 02/19 22:55 Order name: Hepatic Function; Complete Time: 23:53 02/19 22:55 Order name: PT-INR; Complete Time: 23:53 02/19 22:55 Order name: Test, Urine; Complete Time: 00:43 02/19 22:55 Order name: Ptt, Activated; Complete Time: 23:53 02/19 22:55 Order name: Urinalysis w/ reflexes; Complete Time: 00:43 02/20 00:44 Interpretation: Normal except: [facility] Turbid; UESTR 75. 02/19 22:55 Order name: Urine Drug Screen; Complete Time: 00:43 cp 02/20 00:44 Interpretation: Normal except: THC POSITIVE. cp 02/19 22:55 Order name: EKG - Nurse/Tech; Complete Time: 23:12 cp 02/19 22:55 Order name: IV Saline Lock; Complete Time: 22:59 cp 02/19 22:55 Order name: Labs collected and sent; Complete Time: 22:59 cp 02/19 22:55 Order name: Suicide Screening ([place]); Complete Time: 23:11 cp EC:10 Rate is 102 beats/min. Rhythm is regular. IN interval is prolonged at 208 msec. QRS cp interval is normal. QT interval is normal. T waves are Inverted in lead aVR. Interpreted by me. Reviewed by me. Administered Medications: 02/19 23:11 Drug: metoCLOPramide IVP 10 mg IVP once; over 1 to 2 minutes Route: IVP; Site: left [facility] antecubital; 02/20 00:12 Follow up: Response: No adverse reaction [facility] 02/19 23:11 Drug: diphenhydrAMINE IVP 25 mg IVP once Route: IVP; Site: left antecubital; 8 02/20 00:11 Follow up: Response: No adverse reaction 8 02/19 23:11 Drug: NS 0.9% IV 1000 ml IV at 1000 ml once; to be given as a bolus over 60 minutes bm8 Route: IV; Rate: 1000 ml; Site: left antecubital; 02/20 00:11 Follow up: Response: No adverse reaction; IV Status: Completed infusion bm8 00:09 Drug: Ativan IVP 1 mg IVP once Route: IVP; Site: left antecubital; bm8 00:11 Follow up: Response: No adverse reaction bm8 01:13 Drug: Potassium PO Effervescent Tablet 50 mEq PO once; dissolve in 4 ounces of water or bm8 juice Route: PO; 01:16 Follow up: Response: No adverse reaction bm8 01:14 Drug: Potassium PO Effervescent Tablet 25 mEq PO once; dissolve in 4 ounces of water or bm8 juice Route: PO; 01:16 Follow up: Response: No adverse reaction bm8 Disposition: 02/21 01:18 Chart complete. cp Disposition Summary: 02/20/25 01:02 Discharge Ordered Notes: Location: Home cp Problem: new cp Symptoms: have improved cp Condition: Stable cp Diagnosis - Nausea with vomiting, unspecified cp - Adverse effect of unspecified drugs, medicaments and biological substances, initial cp encounter Followup: cp - With: Private Physician - When: 2 - 3 days - Reason: Worsening of condition Discharge Instructions: - Discharge Summary Sheet cp - Cannabis Use Disorder cp - Nausea and Vomiting, Adult cp - Preventing Marijuana Misuse cp - Cannabinoid Hyperemesis Syndrome cp Forms: - Medication Reconciliation Form cp - Antibiotic Education cp - Prescription Opioid Use cp - Patient Portal Instructions cp - Leadership Thank You Letter cp Prescriptions: - Zofran 4 mg Oral Tablet - take 1 tablet ORAL route every 12 hours As needed; 20 tablet; Refills: 0, cp Product Selection Permitted Addendum: 02/24/2025 15:40 Co-signature as Attending Physician, Balta Hummel MD I agree with the assessment and c suarez plan of care. Signatures: Dispatcher [employer] Balta Edouard MD MD cha Page, Corey, PA PA cp Able, Lacie RN RN lg3 Ari Perez RN RN bm8 Corrections: (The following items were deleted from the chart) 02/19 22:56 22:56 BASIC METABOLIC PANEL+C.LAB.BRZ ordered. EDMS EDMS 22:56 22:56 CBC+H.LAB.BRZ ordered. EDMS EDMS 22:56 22:56 ETHANOL+C.LAB.BRZ ordered. EDMS EDMS 22:56 22:56 HEPATIC FUNCTION+C.LAB.BRZ ordered. EDMS EDMS 22:56 22:56 PROTIME (+INR)+COAG.LAB.BRZ ordered. EDMS EDMS 22:56 22:56 Test, Urine+UC.LAB.BRZ ordered. EDMS EDMS 22:56 22:56 PTT, ACTIVATED+COAG.LAB.BRZ ordered. EDMS EDMS 22:56 22:56 Urinalysis+U.LAB.BRZ ordered. EDMS EDMS 22:56 22:56 URINE DRUG SCREEN+UC.LAB.BRZ ordered. EDMS EDMS
--- NOTE | 2025-02-20 01:03 | ER ---
Nurse's Notes [facility] Name: Dede Mcgee Age: 34 yrs Sex: Female : 1990 Arrival Date: 02/19/2025 Time: 22:42 Bed 6 Private MD: Diagnosis: Nausea with vomiting, unspecified;Adverse effect of unspecified drugs, medicaments and biological substances, initial encounter Presentation: 02/19 22:56 Chief complaint: Patient states: i ate a THC gummy for the first time around 9:30pm and lg3 now im anxious, shaky, paranoid, nauseous and feel like my heart is racing. Coronavirus screen: Client denies travel out of the [place] in the last 14 days. At this time, the client does not indicate any symptoms associated with coronavirus-19. Ebola Screen: No symptoms or risks identified at this time. Risk Assessment: Do you want to hurt yourself or someone else? Patient reports no desire to harm self or others. Onset of symptoms was February 19, 2025. 22:56 Method Of Arrival: Ambulatory lg3 22:56 Acuity: JOSLYN 3 lg3 02/20 01:17 Initial Sepsis Screen: Does the patient meet any 2 criteria? No. Patient's initial bm8 sepsis screen is negative. Does the patient have a suspected source of infection? No. Patient's initial sepsis screen is negative. Triage Assessment: 02/19 22:58 General: Appears in no apparent distress. uncomfortable, Behavior is cooperative, lg3 anxious. Pain: Denies pain. EENT: No deficits noted. No signs and/or symptoms were reported regarding the EENT system. Neuro: [place] Agitation-Sedation Scale (RASS): +1 Restless Level of Consciousness is awake, alert, obeys commands, Oriented to person, place, time, situation. Cardiovascular: No deficits noted. Reports palpitations, Capillary refill < 3 seconds Clubbing of nail beds is absent JVD is absent Patient's skin is warm and dry. Respiratory: No deficits noted. Airway is patent Respiratory effort is even, unlabored, Respiratory pattern is regular, symmetrical. GI: Pt is actively vomiting clear fluid, undigested food, Reports nausea. : No signs and/or symptoms were reported regarding the genitourinary system. Derm: No deficits noted. No signs and/or symptoms reported regarding the dermatologic system. Skin is intact, is healthy with good turgor, Skin is dry, Skin is normal, Skin temperature is warm. Musculoskeletal: No deficits noted. Circulation, motion, and sensation intact. Range of motion: intact in all extremities. COMMUNICATION SPEC: 22:58 LMP N/A - control method, Not lg3 Historical: - Allergies: 22:58 SHELLFISH; lg3 22:58 Singulair; lg3 - PMHx: 22:58 Anxiety; Asthma; Bronchitis; Depression; Hypertension; Ovarian cyst; lg3 - PSHx: 22:58 ovarian cyst; lg3 - Immunization history:: Adult Immunizations up to date. - Infectious Disease History:: Denies. - Social history:: Smoking status: Patient denies any tobacco usage or history of. Patient uses alcohol, occasionally. Screenin:12 [facility] ED Fall Risk Assessment (Adult) History of falling in the last 3 months, bm8 including since admission No falls in past 3 months (0 pts) Confusion or Disorientation No (0 pts) Intoxicated or Sedated No (0 pts) Impaired Gait No (0 pts) Mobility Assist Device Used No (0 pt) Altered Elimination No (0 pt) Score/Fall Risk Level 0 - 2 = Low Risk Oriented to surroundings, Maintained a safe environment, Educated pt \T\ family on fall prevention, incl call for assistance when getting out of bed, Assessed \T\ reinforced patient's understanding of fall precautions, Hourly rounding (assess needs \T\ fall precautionary measures) done, Used ambulatory aids as needed (educated on \T\ assisted with), Used gait belt as appropriate. Abuse screen: Denies threats or abuse. Nutritional screening: No deficits noted. Tuberculosis screening: No symptoms or risk factors identified. Assessment: 23:12 Reassessment: Patient appears in no apparent distress at this time. Patient and/or bm8 family updated on plan of care and expected duration. Pain level reassessed. Patient is alert, oriented x 3, equal unlabored respirations, skin warm/dry/pink. General: Appears in no apparent distress. comfortable, Behavior is calm, cooperative, appropriate for age. Pain: Denies pain. Pain does not radiate. Pain began none. Neuro: No deficits noted. Level of Consciousness is awake, alert, obeys commands, Oriented to person, place, time, situation, Appropriate for age. Cardiovascular: Denies chest pain, Heart tones S1 S2 present Capillary refill < 3 seconds in bilateral fingers Patient's skin is warm and dry. Respiratory: Airway is patent Respiratory effort is even, unlabored, Respiratory pattern is regular, symmetrical. GI: Reports nausea, vomiting. : No signs and/or symptoms were reported regarding the genitourinary system. EENT: No signs and/or symptoms were reported regarding the EENT system. Derm: No signs and/or symptoms reported regarding the dermatologic system. Musculoskeletal: No signs and/or symptoms reported regarding the musculoskeletal system. 02/20 00:09 Reassessment: pt up to restroom and back in bed, denies pain but is reporting bm8 jitteriness. Provider informed and new orders received and carried out. 01:15 Reassessment: Patient appears in no apparent distress at this time. Patient and/or bm8 family updated on plan of care and expected duration. Pain level reassessed. Patient is alert, oriented x 3, equal unlabored respirations, skin warm/dry/pink. Patient denies pain at this time. Patient states feeling better. Patient states symptoms have improved. Vital Signs: 02/19 22:59 BP 136 / 90; Pulse 108; Resp 20; Temp 97.6(T); Pulse Ox 100% on R/A; ha1 02/20 00:09 BP 120 / 92; Pulse 84; Resp 18; Temp 97.6; Pulse Ox 100% ; Pain 0/10; bm8 01:15 BP 134 / 79; Pulse 90; Resp 18; Temp 97.6; Pulse Ox 100% ; Pain 0/10; bm8 02/20 00:09 Pain Scale: Adult bm8 01:15 Pain Scale: Adult bm8 [place] Coma Score: 02/19 23:12 Eye Response: spontaneous(4). Motor Response: obeys commands(6). Verbal Response: bm8 oriented(5). Total: 15. 02/20 00:09 Eye Response: spontaneous(4). Motor Response: obeys commands(6). Verbal Response: bm8 oriented(5). Total: 15. 01:15 Eye Response: spontaneous(4). Motor Response: obeys commands(6). Verbal Response: bm8 oriented(5). Total: 15. ED Course: 02/19 22:44 Patient arrived in ED. jj6 22:47 Ari Perez, RN is Primary Nurse. bm8 22:49 Bal[facility] Sharif PA [facility]. cp 22:49 Balta Hummel MD is Attending Physician. cp 22:58 Triage completed. lg3 22:58 Arm band placed on right wrist. lg3 23:12 Patient has correct armband on for positive identification. Placed in gown. Bed in low bm8 position. Call light in reach. Side rails up X 1. Client placed on continuous cardiac and pulse oximetry monitoring. NIBP monitoring applied. physical plant manager on. Pulse ox on. NIBP on. Door closed. Noise minimized. Warm blanket given. Pillow given. Verbal reassurance given. Head of bed lowered. 23:12 No provider procedures requiring assistance completed. Initial lab(s) drawn, by ED bm8 staff, sent to lab. Inserted saline lock: 20 gauge in left antecubital area, using aseptic technique. Blood collected. Flushed with 10 mL NS. Patient maintains SpO2 saturation greater than 95% on room air. 02/20 00:09 Provided Education on: post er care. bm8 01:15 IV discontinued, intact, bleeding controlled, No redness/swelling at site. Pressure bm8 dressing applied. Administered Medications: 02/19 23:11 Drug: metoCLOPramide IVP 10 mg IVP once; over 1 to 2 minutes Route: IVP; Site: left 8 antecubital; 02/20 00:12 Follow up: Response: No adverse reaction bm8 02/19 23:11 Drug: diphenhydrAMINE IVP 25 mg IVP once Route: IVP; Site: left antecubital; bm8 02/20 00:11 Follow up: Response: No adverse reaction 8 02/19 23:11 Drug: NS 0.9% IV 1000 ml IV at 1000 ml once; to be given as a bolus over 60 minutes bm8 Route: IV; Rate: 1000 ml; Site: left antecubital; 02/20 00:11 Follow up: Response: No adverse reaction; IV Status: Completed infusion bm8 00:09 Drug: Ativan IVP 1 mg IVP once Route: IVP; Site: left antecubital; bm8 00:11 Follow up: Response: No adverse reaction bm8 01:13 Drug: Potassium PO Effervescent Tablet 50 mEq PO once; dissolve in 4 ounces of water or bm8 juice Route: PO; 01:16 Follow up: Response: No adverse reaction bm8 01:14 Drug: Potassium PO Effervescent Tablet 25 mEq PO once; dissolve in 4 ounces of water or bm8 juice Route: PO; 01:16 Follow up: Response: No adverse reaction bm8 Medication: 02/19 23:12 VIS not applicable for this client. bm8 Outcome: 02/20 01:02 Discharge ordered by . cp 01:15 Discharged to home ambulatory, bm8 01:15 Condition: stable 01:15 Discharge instructions given to patient, Instructed on discharge instructions, follow up and referral plans. no drinking with medication, no driving heavy equipment, medication usage, safety practices, Demonstrated understanding of instructions, follow-up care, medications, Prescriptions given X 1, 01:26 Patient left the ED. bm8 Signatures: Balta Sharif PA PA cp Able, Lacie, RN RN lg3 Alix [id number] Faith Amin, HEIDI RN ha1 Ari Perez, RN RN bm8 Corrections: (The following items were deleted from the chart) 01:17 01:15 Pulse 90bpm; Resp 18bpm; Pulse Ox 100%; Temp 97.6F; Pain 0/10, Adult; bm8 bm8
[2025-02-20 01:38] VITALS: TEMP 97.6; O2SAT 100
[2025-02-20 01:41] VITALS: BP 134/79
--- NOTE | 2025-02-23 11:30 | EKG ---
Test Date: 2025-02-20 Test Time: 00:02:12 Financial Manager: JULIETTE MEASUREMENT RESULTS: Intervals: Rate: 102 MO: 208 QRSD: 92 QT: 346 QTc: 450 Anatone: P: 76 MO: 208 QRS: 59 T: 63 INTERPRETIVE STATEMENTS: Sinus tachycardia Right atrial enlargement Borderline ECG Compared to ECG 12/16/2020 17:10:46 Atrial abnormality now present Sinus rhythm no longer present Electronically Signed On 02-23-25 11:23:15 CDT by Wayne Fisher
== END 2025-02-20 01:26 | disposition home or self-care (01) ==
LOC: ER 22:42
DX: R11.2 Nausea with vomiting, unspecified (principal); T40.715A Adverse effect of cannabis, initial encounter
CPT/HCPCS: 36415; 80048; 80076; 80307; 81001; 81025; 82077; 85025; 85610; 85730; 93005; 96361; 96374; 96375; 99285; J1200; J2765; J7030